=== PATIENT | female | born 2000 | race Caucasian/White ===

== ENCOUNTER → 2023-09-12 09:15 | Outpatient (BNVA) | payer OTHER, SELFPAY | PROVIDERS: Visit Provider Physician Assistant Surgical ==

== ENCOUNTER 2023-09-26 08:04 | Outpatient (AMB) | payer OTHER, SELFPAY ==
--- NOTE | 2023-09-26 11:40 | MHC.OFFVISWM ---
VS Expanded 09/26/23 11:56 Height 5 ft 6 in Weight 337 lb BMI 54.4 Body Fat % 50.5 Body Fat Mass 170.2 Fat Free Mass 166.6 Visceral Fat Rating 17 Body Water % 35.6 Body Water Mass 120 Basal Metabolic Rate/Score 2,486 Intake Visit Reasons: TV [employer] M[employer]'S H[employer] SWL BMI 54.4 Allergies adhesive tape Allergy (Mild, Verified 09/26/23 11:41) Rash lactose Adverse Reaction (Intermediate, Verified 09/26/23 11:41) Gastrointestinal Upset Medication List - Last Reconciled 09/26/23 by Shine Castro MD bupropion HCl 25 mg PO DAILY cholecalciferol (vitamin D3) 125 mcg PO DAILY hydroxyzine HCl 25 mg PO BID PRN lisdexamfetamine (Vyvanse) 50 mg PO .prn lorazepam 0.5 mg PO DAILY PRN naltrexone 50 mg PO DAILY HPI HPI TV [employer]ESPERSON M[employer] H[employer] SWL BMI 54.4: Details: Start time: 11.34am, End time: 12.14pm ?I spent 35 minutes speaking with the patient on the phone plus an additional 5 minutes reviewing and updating records for a total of 40 minutes HPI Comments Details: Previous weight loss efforts: Trylicity (40lbs), Bupropion/Naltrexone) Wakes up: 9am, Sleeps: 2am Breakfast: skip most often, protein bar Lunch: 2pm ([employer] protein chips) Dinner: 7.30pm (meat and vegetables) Snacks: protein brownie at night Exercise: Weigh training, Gym (treadmill), has home walking pad Fluids: Coffee: occasionally, Tea: occasionally, soda: none, juice: none, ETOH: 1/wk (3 Espresso Martinis) [facility] Medical History (Updated 09/26/23 @ 11:47 by Shine Castro MD) Steatosis, liver Insomnia PCOS (polycystic ovarian syndrome) Anxiety ADHD Morbid obesity Surgical History (Updated 09/12/23 @ 09:40 by Mitzy Kaye CMA) History of ankle surgery Hx of knee surgery Family History (Updated 09/12/23 @ 09:42 by Mitzy Kaye CMA) Mother Mental health disorder Addiction Father Mental health disorder Addiction Sister Obesity Mental health disorder Sister No problems noted. Social History (Updated 09/12/23 @ 09:43 by Mitzy Kaye CMA) Alcohol intake: current Alcohol intake frequency: holidays/special occasions only Patient Tobacco Use Status: Former Tobacco user Telehealth Telehealth Telehealth Platform: Telephone Location of provider rendering services: practice address Location of patient: address on file Patient Identification confirmed using: Name, : Yes Telehealth method: voice only Patient verbally consented to treatment: Yes Patient verbally consented to billing insurance company: Yes Patient informed of any privacy concerns related to visit: Yes Minutes spent on Phone/Video with Pt.: 40 Assessment & Plan Assessment & Plan (1) Morbid obesity: Code(s): E66.01 - Morbid (severe) obesity due to excess calories Category: Medical Plan: 1.? Plan for lap sleeve gastrectomy. If diaphragmatic or ventral hernias are present at time of surgery, these will be repaired laparoscopically as well. Risks and complications include possible conversion to an open procedure, anastomotic leak, bleeding requiring transfusion, small bowel obstruction, , DVT and pulmonary embolism, cardiac, or pulmonary complications, as senior care complications such as anastomotic ulcer, insufficient weight loss and vitamin deficiencies. I emphasized the importance of close follow-up, adherence to instructions and good communication. 2. You will receive a link of our software bogdan to generate an individualized nutritional and exercise plan specific for you. Please send me a screenshot of the plans you will generate Meal to include lean meat (beef, fish, pork, turkey, chicken), or estonian yogurt, or egg whites, or beans with a salad with olive oil and fruits (berries, pears, apples, kiwi). Avoid salt, breads, potatoes, rice, pasta, desserts. ?3. If you choose shakes, each shake would be drunk slowly, like coffee in a period of 2 hours. ?4. If you choose bars, cut each bar in 4 pieces and eat each piece in 30min ?to make each bar last 2 hours. ?5. I emphasized the importance of measuring accurately the food portion and measure it when serving the food in plate ?6. The meal portions include a specific number of forks of meat and salad. You always eat the meat portion but you can replace up to half of salad/vegetables portion with rice, potatoes or pasta, or a fruit ?if you like. The less you do it the better weight loss will be. ?7. One full-size fork is what it can be scooped on the fork without falling aside and not what can be bit with the fork. Use regular forks like those you find in a typical restaurant. ?8.? Please send me weight measurements as soon as possible and then once a week. Always include your diet and exercise plan. 9. The best choice would be to purchase a stationary bike, elliptical or treadmill at home that can track calories. Let me know if you do so I can give you an exercise plan. ?10.?It is important of avoiding and for at least 18 months postoperatively and has been discussed at the infosession. ?11. Goal is to lose at least 1.5-2lbs per week ?12. Goal to lose 10% of your weight before surgery, which is about 34lbs. Ultimate weight goal: 303lbs before surgery 13. Please follow the diet plan exactly without any change. If you don't like something about the plan or you feel hungry you need to communicate with me so I can help you revise the plan. You should not change the plan yourself. 14. To be scheduled for EGD due to history of GERD. The possibility of biopsies was discussed. Patient needs to avoid use of NSAIDs and aspirin for 1 week prior to EGD. Risks of perforation and bleeding was discussed with the patient. This will be an outpatient procedure with IV sedation. Orders: Orders Insulin Today E28.2 - Polycystic ovarian syndrome, E66.01 - Morbid (severe) obesity due to excess calories, K76.0 - Fatty (change of) liver, not elsewhere classified Hemoglobin A1c Today E28.2 - Polycystic ovarian syndrome, E66.01 - Morbid (severe) obesity due to excess calories, K76.0 - Fatty (change of) liver, not elsewhere classified IRON PROFILE Today E28.2 - Polycystic ovarian syndrome, E66.01 - Morbid (severe) obesity due to excess calories, K76.0 - Fatty (change of) liver, not elsewhere classified Comprehensive Met. Panel Today E28.2 - Polycystic ovarian syndrome, E66.01 - Morbid (severe) obesity due to excess calories, K76.0 - Fatty (change of) liver, not elsewhere classified C Reactive Protein Today E28.2 - Polycystic ovarian syndrome, E66.01 - Morbid (severe) obesity due to excess calories, K76.0 - Fatty (change of) liver, not elsewhere classified Vitamin B1 Today E28.2 - Polycystic ovarian syndrome, E66.01 - Morbid (severe) obesity due to excess calories, K76.0 - Fatty (change of) liver, not elsewhere classified TSH reflex Free T4 Today E28.2 - Polycystic ovarian syndrome, E66.01 - Morbid (severe) obesity due to excess calories, K76.0 - Fatty (change of) liver, not elsewhere classified Ferritin Today E28.2 - Polycystic ovarian syndrome, E66.01 - Morbid (severe) obesity due to excess calories, K76.0 - Fatty (change of) liver, not elsewhere classified Vitamin D 25-OH Total Today E28.2 - Polycystic ovarian syndrome, E66.01 - Morbid (severe) obesity due to excess calories, K76.0 - Fatty (change of) liver, not elsewhere classified US abdomen comp w elastography Today E28.2 - Polycystic ovarian syndrome, E66.01 - Morbid (severe) obesity due to excess calories, K76.0 - Fatty (change of) liver, not elsewhere classified ECG 12 lead EKG Today E28.2 - Polycystic ovarian syndrome, E66.01 - Morbid (severe) obesity due to excess calories, K76.0 - Fatty (change of) liver, not elsewhere classified H Pylori Breath Test Today E28.2 - Polycystic ovarian syndrome, E66.01 - Morbid (severe) obesity due to excess calories, K76.0 - Fatty (change of) liver, not elsewhere classified Complete Blood Count Auto Diff Today E28.2 - Polycystic ovarian syndrome, E66.01 - Morbid (severe) obesity due to excess calories, K76.0 - Fatty (change of) liver, not elsewhere classified Lipid Panel Today E28.2 - Polycystic ovarian syndrome, E66.01 - Morbid (severe) obesity due to excess calories, K76.0 - Fatty (change of) liver, not elsewhere classified Vitamin B12 and Folate Today E28.2 - Polycystic ovarian syndrome, E66.01 - Morbid (severe) obesity due to excess calories, K76.0 - Fatty (change of) liver, not elsewhere classified Zinc Today E28.2 - Polycystic ovarian syndrome, E66.01 - Morbid (severe) obesity due to excess calories, K76.0 - Fatty (change of) liver, not elsewhere classified Vitamin A Today E28.2 - Polycystic ovarian syndrome, E66.01 - Morbid (severe) obesity due to excess calories, K76.0 - Fatty (change of) liver, not elsewhere classified XR chest 2V Today E28.2 - Polycystic ovarian syndrome, E66.01 - Morbid (severe) obesity due to excess calories, K76.0 - Fatty (change of) liver, not elsewhere classified FL upper GI w air Today E28.2 - Polycystic ovarian syndrome, E66.01 - Morbid (severe) obesity due to excess calories, K76.0 - Fatty (change of) liver, not elsewhere classified Referrals Behavioral Health Referral E28.2 - Polycystic ovarian syndrome, E66.01 - Morbid (severe) obesity due to excess calories, K76.0 - Fatty (change of) liver, not elsewhere classified Nutrition/Dietitian Referral E28.2 - Polycystic ovarian syndrome, E66.01 - Morbid (severe) obesity due to excess calories, K76.0 - Fatty (change of) liver, not elsewhere classified
[2023-09-26 11:56] VITALS: BMI 54.4
== END 2023-09-26 12:15 | disposition home or self-care (01) ==
LOC: HO.HBS 08:04
PROVIDERS: Visit Provider Surgery
DX: E66.01 Morbid (severe) obesity due to excess calories (principal)
CPT/HCPCS: 99203

== ENCOUNTER → 2023-09-26 08:04 | Outpatient (BNVA) | payer OTHER, SELFPAY | PROVIDERS: Visit Provider Surgery ==

== ENCOUNTER 2023-09-30 14:42 | Outpatient (REF) | payer OTHER, SELFPAY ==
--- NOTE | ~2023-09-30 | XR_ITS ---
EXAMINATION: XR CHEST CLINICAL INFORMATION: Obesity preoperative COMPARISON: None available. TECHNIQUE: 2 views of the chest were obtained. FINDINGS: No significant abnormality is noted involving the heart, lungs, mediastinum, bony thorax or soft tissues. XR/XR chest 2V IMPRESSION: Normal chest x-ray.
--- NOTE | 2023-09-30 14:52 | ECG_ITS ---
Test Reason : preop Blood Pressure : / mmHG Vent. Rate : 070 BPM Atrial Rate : 070 BPM P-R Int : 152 ms QRS Dur : 084 ms QT Int : 394 ms P-R-T Axes : 053 031 030 degrees QTc Int : 425 ms Normal sinus rhythm Normal ECG No previous ECGs available Referred By: Shine Castro Electronically Signed By:LUCILA MARTINEZ MD
== END 2023-09-30 14:43 | disposition home or self-care (01) ==
LOC: HO.XRAY 14:42
PROVIDERS: Visit Provider Surgery
DX: E66.01 Morbid (severe) obesity due to excess calories (principal); K76.0 Fatty (change of) liver, not elsewhere classified; E28.2 Polycystic ovarian syndrome
CPT/HCPCS: 71046; 93005

== ENCOUNTER → 2023-09-30 14:52 | Outpatient (BNV) | payer OTHER, SELFPAY | PROVIDERS: Visit Provider Internal Medicine Cardiovascular Disease | DX: E66.01 Morbid (severe) obesity due to excess calories (principal); Z01.810 Encounter for preprocedural cardiovascular examination | CPT/HCPCS: 93010 ==

== ENCOUNTER 2023-10-01 10:43 | Outpatient (REF) | payer OTHER, SELFPAY ==
[2023-10-01 10:57] LABS: MANUAL DIFF FLAG NO
[2023-10-01 12:20] LABS: Basophils Absolute Auto 0.1 X10*3/uL (0.0-0.2); Basophils Percent Auto 0.6 % (0-2); Eosinophils Absolute Auto 0.2 X10*3/uL (0.0-0.4); Eosinophils Percent Auto 1.9 % (0-4); Hematocrit 40.6 % (37.0-47.0); Hemoglobin 13.1 g/dl (12.0-16.0); Imm Gran Abs Auto 0.04 X10*3/uL (0.00-0.03); Imm Gran Pct Auto 0.5 % (0.0-0.4); Lymphocytes Absolute Auto 2.9 X10*3/uL (1.2-4.9); Lymphocytes Percent Auto 36.4 % (20-40); Mean Corpuscular HGB Conc 32.3 g/dl (31.0-35.0); Mean Corpuscular Hemoglobin 29.5 pg (27.0-33.0); Mean Corpuscular Volume 91.4 fL (80.0-98.0); Mean Platelet Volume 10.5 fL (9.4-12.3); Monocytes Absolute Auto 0.6 X10*3/uL (0.1-1.2); Monocytes Percent Auto 7.4 % (2-11); Neutrophils Absolute Auto 4.2 x10*3/uL (2.0-8.3); Neutrophils Percent Auto 53.2 % (45-73); Platelet Count 322 X10*3/uL (160-400); Red Blood Count 4.44 X10*6/uL (4.20-5.50); Red Cell Distribution Width 13.7 % (11.0-16.0); White Blood Count 7.8 X10*3/uL (4.8-10.8)
[2023-10-01 12:33] LABS: Estimated Average Glucose 100 mg/dL; Hemoglobin A1c % 5.1 % (<6.0)
[2023-10-01 12:55] LABS: Alanine Aminotransferase 22 U/L (0-31); Albumin Level 4.2 g/dL (3.5-5.0); Alkaline Phosphatase 48 U/L (39-117); Anion Gap 11 (12-20); Aspartate Amino Transferase 16 U/L (5-31); Bilirubin Total 0.3 mg/dL (0.0-1.0); Blood Urea Nitrogen 16 mg/dL (9-16); C Reactive Protein 0.85 mg/dL (< or = 0.50); Calcium 9.5 mg/dL (8.4-10.2); Carbon Dioxide 26 mmol/L (22-29); Chloride 104 mmol/L (96-108); Cholesterol 180 mg/dL (<200); Estimated Glomerular Filt Rate > 60; Glucose Random 87 mg/dL (60-115); HDL Cholesterol 27 mg/dL (>40); Iron 55 mcg/dL (30-160); LDL Cholesterol Calculated 130 mg/dL (<100); Percent Iron Saturation 20 % (15-50); Potassium 4.4 mmol/L (3.3-5.1); Sodium 137 mmol/L (135-145); Total Iron Binding Capacity 271 mcg/dL (228-428); Total Protein 7.3 g/dL (6.5-8.0); Triglycerides 119 mg/dL (<150); Unsaturated Iron Binding 216 ug/dL
[2023-10-01 13:17] LABS: Ferritin 153 ng/mL (10-122); TSH reflex Free T4 4.08 uIU/mL (0.32-4.0); Vitamin D 25-OH Total 26.7 ng/mL (>30)
[2023-10-01 13:38] LABS: Insulin 19 uU/mL (2-29)
[2023-10-01 13:57] LABS: Vitamin B12 550 pg/mL (200-900)
[2023-10-01 15:08] LABS: Free T4 (Free Thyroxine) 1.02 ng/dL (0.71-1.85)
[2023-10-06 05:38] LABS: Vitamin B1 <6 nmol/L (8-30)
[2023-10-06 12:32] LABS: Zinc 70 mcg/dL (60-130)
[2023-10-07 20:44] LABS: Vitamin A 36 mcg/dL (38-98)
== END 2023-10-01 10:44 | disposition home or self-care (01) ==
LOC: HO.LAB 10:43
PROVIDERS: Visit Provider Surgery
DX: E66.01 Morbid (severe) obesity due to excess calories (principal); K76.0 Fatty (change of) liver, not elsewhere classified; E28.2 Polycystic ovarian syndrome; Z13.1 Encounter for screening for diabetes mellitus
CPT/HCPCS: 36415; 80053; 80061; 82306; 82607; 82728; 82746; 83036; 83525; 83540; 84425; 84439; 84443; 84590; 84630; 85025; 86140

== ENCOUNTER 2023-10-15 11:00 | Outpatient (AMB) | payer OTHER, SELFPAY ==
--- NOTE | 2023-10-15 11:10 | MHC.WMTHER ---
Intake Intake Visit Reasons: TV BH Intake Allergies adhesive tape Allergy (Mild, Verified 09/26/23 11:41) Rash lactose Adverse Reaction (Intermediate, Verified 09/26/23 11:41) Gastrointestinal Upset PFSH Medical History (Updated 09/26/23 @ 11:47 by Shine Castro MD) Steatosis, liver Insomnia PCOS (polycystic ovarian syndrome) Anxiety ADHD Morbid obesity Surgical History (Updated 09/12/23 @ 09:40 by Mitzy Kaye CMA) History of ankle surgery Hx of knee surgery Family History (Updated 09/12/23 @ 09:42 by Mitzy Kaye CMA) Mother Mental health disorder Addiction Father Mental health disorder Addiction Sister Obesity Mental health disorder Sister No problems noted. Social History (Updated 09/12/23 @ 09:43 by Mitzy Kaye CMA) Alcohol intake: current Alcohol intake frequency: holidays/special occasions only Patient Tobacco Use Status: Former Tobacco user Behavioral Health Assessment Weight Management Therapy Therapy Notes Details PT is a 23 year old female who presents for BH assessment as part of surgical weight-loss program. Presenting Concerns Referral Source P Provider. Pt seen by Dr Arango on 10/01/2023. Reason for referral Completion of behavioral health assessment as part of process for weight-loss surgery. Precipitating Event PT reports she is going trough transitions in life and want to be successful with her weight loss to eventually start a family and be more active. She also has PCOS and Liver issues that can improve with weight-loss. Living Situation Current Living Situation Rent At risk of losing current housing? No Satisfied with current living situation? Yes Comments Lives with her partner in [place] and their cat. Food/Weight/Diet Expectations of change Initial goal is to lose 10% of her weight before surgery, which is about 34lbs. Ultimate weight goal: 303lbs before surgery She wants to be around 150Lbs and feel good, healthy and confident with her body. Social History Family history and relationship Mom is a single-mom, who adopted her and another girl. Mom was a teacher. Adopted at 4 years old but was with her mother since 15 month old as foster. Sister is 21 years old. PT reports they all are very close and supportive with each other. . She has grandparents and uncles/aunts who are close to her. She knew about her bio-family later in life, She doesn't have a deeper relationship with them due to drama on that side. 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 Developmental history and status Diagnosed with ADHD around 9 years old. Denies any delay or developmental issue. Currently takes meds for ADHD and is doing well. Social support Mom, boyfriend, sister. 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 Cultural/Ethnic information Grew up in an Latvian household. Biologically she's White and . Paraguayan speaking. Legal Involvement and History Current or historical involvement with the legal system? None reported. Education Highest grade completed Bachelors. 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 Yes Interested in further educational program? 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 Employment Employment Status School Wants help to find employment? No Meaningful activities Volunteering, music, theater, time with friends, going out. Financial Situation Describe current financial situation Comfortable Financial assistance? Contributions from your family/friends (Mom and boyfriend helps as she is a full-time student. ) Service Service? No Mental Health and Addiction Treatment Current/Past substance abuse? No Current/Past addictive behavior concerns? No Psychiatric history PT attends counseling with Dr. Alethea Melendez, PhD in [place], [place] via telehealth. Sees therapist bi-weekly or monthly. Been in counseling since 7 grade as she was adopted and to get support with adoption trauma and her sister having reactive attachment disorder. The client has been diagnosed with PTSD, depression, anxiety (situational), ADHD and insomnia. Current meds: Vyvanse 50mg 1 at day, Lorazepam 0.5mg 1 as needed for anxiety, hydroxyzine 25mg 1 at bedtime for insomnia as needed, Assessment & Plan Assessment & Plan (1) Trauma and stressor-related disorder: Code(s): F43.9 - Reaction to severe stress, unspecified Plan: Not cleared today as Pt will be seen again on 11/03/2023 at 1pm to copmplete the assessment. PHQ-9 will be administered again and BES reviewed. Telehealth Telehealth Telehealth Platform: [facility] Location of provider rendering services: practice address Location of patient: other ([place]) Patient Identification confirmed using: Name, : Yes Telehealth method: voice only (Video was unstable.) Patient verbally consented to treatment: Yes Patient verbally consented to billing insurance company: Yes Patient informed of any privacy concerns related to visit: No Minutes spent on Phone/Video with Pt.: 60 Coding Level of Care Code New Pt Tele Psy Diag Bernadine ([id number]) Patient Type New Diagnoses Trauma and stressor-related disorder F43.9 Time Spent (min) 60
== END 2023-10-15 11:58 | disposition home or self-care (01) ==
LOC: HO.HBST 11:37
PROVIDERS: Visit Provider Counselor Mental Health
DX: F43.9 Reaction to severe stress, unspecified (principal)
CPT/HCPCS: 90791

== ENCOUNTER → 2023-10-15 11:00 | Outpatient (BNVA) | payer OTHER, SELFPAY | PROVIDERS: Visit Provider Counselor Mental Health ==

== ENCOUNTER 2023-10-24 08:16 | Outpatient (REF) | payer OTHER, SELFPAY ==
--- NOTE | ~2023-10-24 | US_ITS ---
EXAMINATION: US COMPLETE ABDOMEN WITH LIVER ELASTOGRAPHY CLINICAL INFORMATION: Morbid obesity. COMPARISON: None available. TECHNIQUE: Real-time imaging of the abdominal viscera. Noninvasive ultrasound liver fibrosis assessment is performed using Kierra ElastPQ point quantification shear wave elastography (pSWE) with a C5-2 MHz transducer. Multiple elastography samples are obtained. FINDINGS: PANCREAS: . The visualized pancreatic head and body are normal in appearance. The remainder of the pancreas is obscured from visualization by the overlying bowel gas. ABDOMINAL AORTA: The proximal, middle, and distal aortic segments are normal in caliber. INFERIOR VENA CAVA: Visualized portions are normal. LIVER: Liver is enlarged at 18.5 cm with increased echogenicity consistent with hepatic steatosis. No focal lesion or intrahepatic biliary duct dilatation. The right lobe measures 18.5 cm in length. The left lobe measures 12.2 cm in length. Portal flow is towards the liver (hepatopetal). Shear wave liver elastography median stiffness is 1.6 m/s (reference: normal median stiffness is 1.3 m/s or less). IQR/median stiffness to assess sampling precision is 0.11 (reference: good quality data set is IQR/median stiffness of 0.15 or less). GALLBLADDER: Gallstones are present without evidence of cholecystitis. COMMON BILE DUCT: Normal in caliber measuring 0.2 cm in diameter. RIGHT KIDNEY: Normal. No hydronephrosis. No renal calculi or focal parenchymal lesions. The kidney measures 11.1 cm in maximum dimension. LEFT KIDNEY: Normal. No hydronephrosis. No renal calculi or focal parenchymal lesions. The kidney measures 11.7 cm in maximum dimension. SPLEEN: Spleen is enlarged measuring 13.8 cm in maximum dimension. FREE FLUID: None. US/US abdomen comp w elastography IMPRESSION: 1. Enlarged fatty liver with mild splenomegaly and cholelithiasis. 2. Liver elastography: In the absence of other known clinical signs, measurements rule out compensated advanced chronic liver disease. If there are known clinical signs, further testing may be needed for confirmation. REFERENCE: Society of Radiologists in Ultrasound Liver Stiffness Thresholds (2019): LIVER STIFFNESS THRESHOLDS: *Liver Stiffness equal or less than 1.3 m/s: High probability of being normal. *Liver Stiffness less than 1.7 m/s: In the absence of other known clinical signs, rules out compensated advanced chronic liver disease. *Liver Stiffness 1.7-2.1 m/s: Suggestive of compensated advanced chronic liver disease but need further test for confirmation. *Liver Stiffness over 2.1 m/s: Rules in compensated advanced chronic liver disease. *Liver Stiffness over 2.4 m/s: Suggestive of clinically significant portal hypertension. QUALITY OF DATA SET: *IQR/Median value equal or less than 0.15 implies a quality data set. *IQR/Median value over 0.15 implies a poor quality data set. SIGNIFICANT CHANGE FROM PRIOR EXAM: Significant change if liver stiffness measurement is 10% or greater from prior exam. OTHER CONSIDERATIONS: The stage of liver fibrosis may be overestimated in the setting of acute hepatitis, liver inflammation, elevated liver function tests, hepatic vascular congestion, obstructive cholestasis, non-fasting state, and infiltrative diseases such as amyloidosis and lymphoma. In some patients with NAFLD, the liver stiffness thresholds for compensated advanced chronic liver disease may be lower. In causes other than viral hepatitis and NAFLD, liver stiffness thresholds are not well established. Electronically signed by: Aureliano Rendon MD 11/12/2023 07:32 AM EDT
== END 2023-10-24 08:17 | disposition home or self-care (01) ==
LOC: HO.US 08:16
PROVIDERS: Visit Provider Surgery
DX: K76.0 Fatty (change of) liver, not elsewhere classified (principal); E28.2 Polycystic ovarian syndrome; E66.01 Morbid (severe) obesity due to excess calories
CPT/HCPCS: 76700; 76981

== ENCOUNTER 2023-11-03 13:17 | Outpatient (AMB) | payer OTHER, SELFPAY ==
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
== END 2023-11-03 14:08 | disposition home or self-care (01) ==
LOC: HO.HBST 13:17
PROVIDERS: Visit Provider Counselor Mental Health
DX: F43.9 Reaction to severe stress, unspecified (principal)
CPT/HCPCS: 90791

== ENCOUNTER → 2023-11-03 13:17 | Outpatient (BNVA) | payer OTHER, SELFPAY | PROVIDERS: Visit Provider Counselor Mental Health ==

== ENCOUNTER 2023-12-05 08:50 | Outpatient (REF) | payer MEDICAID, SELFPAY ==
--- NOTE | ~2023-12-05 | FL_ITS ---
EXAMINATION: XR FLUOROSCOPY UPPER GI WITH AIR CLINICAL INFORMATION: Preoperative evaluation prior to bariatric surgery COMPARISON: None TECHNIQUE: Fluoroscopic air contrast upper GI examination was performed utilizing standard techniques with thin and thick barium and effervescent granules. Numerous spot images were obtained. FINDINGS: Dual and single contrast images of the esophagus demonstrate normal caliber, contour, and mucosal pattern. No evidence of stricture, mass, or ulcerations identified. Esophageal peristalsis is mildly disorganized. No evidence of hiatus hernia identified. Mild to moderate gastroesophageal reflux is seen up to the midesophagus. Dual contrast and single contrast images of the stomach demonstrated a normal contour and mucosal pattern without evidence of mass, ulceration, or other abnormality. Contrast freely passed into the gastric antrum and duodenal bulb without delay. Single and air-contrast images of the duodenal bulb demonstrate no abnormality. The duodenal sweep has a normal appearance, course, and mucosal fold appearance. The imaged proximal jejunum has a normal fold pattern and caliber. FLUOROSCOPY TIME: 3 minutes 23 seconds Number of Spot Images: 9 Number of Cine: 13 DOSE AREA PRODUCT: [id number] uGy-m2 (microgray-meter squared) FL/FL upper GI w air IMPRESSION: 1. Mildly disorganized esophageal peristalsis. 2. Mild to moderate gastroesophageal reflux. This procedure was performed by Camden Acevedo PA-C, and supervised by Dr. Salinas Electronically signed by: Walter Escalera MD 12/11/2023 03:19 PM EDT
== END 2023-12-05 08:51 | disposition home or self-care (01) ==
LOC: HO.XRAY 08:50
PROVIDERS: Visit Provider Surgery
DX: E66.01 Morbid (severe) obesity due to excess calories (principal); K76.0 Fatty (change of) liver, not elsewhere classified; E28.2 Polycystic ovarian syndrome
CPT/HCPCS: 74246

== ENCOUNTER → 2023-12-05 08:52 | Outpatient (BNV) | payer MEDICAID, SELFPAY | PROVIDERS: Visit Provider Student in an Organized Health Care Education/Training Program | DX: Z01.818 Encounter for other preprocedural examination (principal); E66.01 Morbid (severe) obesity due to excess calories | CPT/HCPCS: 74246 ==

== ENCOUNTER 2023-12-11 06:09 | Day surgery (SDC) | payer MEDICAID, SELFPAY ==
[2023-12-01 08:29] VITALS: BMI 54.4
[2023-12-11 06:41] VITALS: BP 134/91; PULSE 89; RESP 16; TEMP 36.2; O2SAT 98; BMI 48.3
[2023-12-11 06:44] LABS: UPreg QC Valid YES; Urine Pregnancy NEGATIVE (NEGATIVE)
[2023-12-11] MEDS: Lactated Ringers 1,000 ML 80 ML IVCONT (06:55)
--- NOTE | 2023-12-11 07:35 | P.CONAN_ITS ---
Documented by User: Karen Guerra NP 12/01/23 15:11 HPI - Anesthesia Eval Consult details Narrative: 23yo F for Upper Endoscopy PMFSH Active Problems Active Problems: All Active Problems Hypothyroidism (Acute) Vitamin B1 deficiency (Acute) Vitamin A deficiency (Acute) Vitamin D deficiency (Acute) Steatosis, liver (Acute) Insomnia (Acute) PCOS (polycystic ovarian syndrome) (Acute) Anxiety (Acute) ADHD (Acute) Morbid obesity (Acute) Past Medical History Medical History (Updated 11/07/23 @ 21:16 by Shine Castro MD) Steatosis, liver Insomnia PCOS (polycystic ovarian syndrome) Anxiety ADHD Morbid obesity Family History Family History (Updated 09/12/23 @ 09:42 by Mitzy Kaye CMA) Mother Mental health disorder Addiction Father Mental health disorder Addiction Sister Obesity Mental health disorder Sister No problems noted. Surgical History Surgical History History of ankle surgery Hx of knee surgery Social History Social History (Updated 09/12/23 @ 09:43 by Mitzy Kaye CMA) Are you a primary care support representative to a significant other at home: No Do you presently have visiting nurse or other home services: No Alcohol intake: current Alcohol intake frequency: holidays/special occasions only Patient Tobacco Use Status: Former Tobacco user Years Smoked: 4 Smoked in Last 30 Days: No Use of substances other than those prescribed or required for medical reasons: No Have you been hit, kicked, punched, or otherwise hurt by someone within the past year? If so, by whom?: No Are you DNR?: No Advance Directives: No Advance Directives Information Provided: Yes Recently lost weight without trying: No How much weight loss: 24-33 pounds Eating poorly because of decreased appetite: No Nutrition screen score: 3 Nutrition Risks: No Nutritional Risk Patient : No : No Poor oral hygiene: No Meds Allergies Allergy/AdvReac Type Severity Reaction Status Date / Time adhesive tape Allergy Mild Rash Verified 12/11/23 06:39 lactose AdvReac Intermediate Gastrointestinal Verified 12/11/23 06:39 Upset Home Medications ?Medication ?Instructions ?Recorded ?Confirmed ?Last Taken ?Type hydroxyzine HCl 25 mg tablet 25 mg PO BID PRN Sleep 09/12/23 12/11/23 Unknown History lisdexamfetamine 50 mg capsule 50 mg PO .prn 09/12/23 12/11/23 Unknown History (Vyvanse) lorazepam 0.5 mg tablet 0.5 mg PO DAILY PRN Anxiety 09/22/23 12/11/23 Unknown History Exam Height,Weight and Vital Signs: Height 5 ft 6 in Weight 152.861 kg Assessment and Plan Assessment Anesthesia Assessment: Chart Reviewed Documented by User: Olga Key, 12/11/23 07:39 [facility] Past Medical History Medical History (Updated 11/07/23 @ 21:16 by Shine Castro MD) Steatosis, liver Insomnia PCOS (polycystic ovarian syndrome) Anxiety ADHD Morbid obesity Family History Family History (Updated 09/12/23 @ 09:42 by Mitzy Kaye CMA) Mother Mental health disorder Addiction Father Mental health disorder Addiction Sister Obesity Mental health disorder Sister No problems noted. Family history of problems with anesthesia: No Surgical History Surgical History History of ankle surgery Hx of knee surgery History of Problems with Anesthesia: Yes (PONV) Social History Social History (Updated 09/12/23 @ 09:43 by Mitzy Kaye CMA) Are you a primary care support representative to a significant other at home: No Do you presently have visiting nurse or other home services: No Alcohol intake: current Alcohol intake frequency: holidays/special occasions only Patient Tobacco Use Status: Former Tobacco user Years Smoked: 4 Smoked in Last 30 Days: No Use of substances other than those prescribed or required for medical reasons: No Have you been hit, kicked, punched, or otherwise hurt by someone within the past year? If so, by whom?: No Are you DNR?: No Advance Directives: No Advance Directives Information Provided: Yes Recently lost weight without trying: No How much weight loss: 24-33 pounds Eating poorly because of decreased appetite: No Nutrition screen score: 3 Nutrition Risks: No Nutritional Risk Patient : No : No Poor oral hygiene: No Meds Allergies Allergy/AdvReac Type Severity Reaction Status Date / Time adhesive tape Allergy Mild Rash Verified 12/11/23 06:39 lactose AdvReac Intermediate Gastrointestinal Verified 12/11/23 06:39 Upset Home Medications ?Medication ?Instructions ?Recorded ?Confirmed ?Last Taken ?Type hydroxyzine HCl 25 mg tablet 25 mg PO BID PRN Sleep 09/12/23 12/11/23 Unknown History lisdexamfetamine 50 mg capsule 50 mg PO .prn 09/12/23 12/11/23 Unknown History (Lucas) lorazepam 0.5 mg tablet 0.5 mg PO DAILY PRN Anxiety 09/22/23 12/11/23 Unknown History Exam Exam Date and Time: 12/11/23 0735 Height,Weight and Vital Signs: Height 5 ft 6 in Weight 152.861 kg Vital Signs Temperature 97.1 F 12/11/23 06:41 Pulse Rate 89 12/11/23 06:41 Respiratory Rate 16 12/11/23 06:41 Blood Pressure 134/91 H 12/11/23 06:41 Pulse Oximetry 98 12/11/23 06:41 Oxygen Delivery Method Room Air 12/11/23 06:41 Temperature 97.1 F 12/11/23 06:41 Pulse Rate 89 12/11/23 06:41 Respiratory Rate 16 12/11/23 06:41 Blood Pressure 134/91 H 12/11/23 06:41 Pulse Oximetry 98 12/11/23 06:41 Oxygen Delivery Method Room Air 12/11/23 06:41 Airway Mallampati Class: II TM Dist: >3cm Neck ROM: Full Loose/Missing/Broken Teeth: No (patient denies any loose or broken teeth) Heart: S1S2 Lungs: CTAB Assessment and Plan Assessment Anesthesia Assessment: Anesthesia Plan Discussed and Chart Reviewed Final Anesthetic Review Family History of Problems with Anesthesia: No History of Problems with Anesthesia: Yes (PONV) NPO: Yes ASA Class: III Final Preanesthetic Review: No Changes in Pt Med Stat, Meds/Allgs Chart Reviewed, Consent Obtained/Reviewed and Anes Risks/Benef Reviewed Patient Risk: Intermediate Procedure Risk: Low Anesthetic Plan Anesthetic Plan: MAC: and Agree w/ Assess. and Plan Disposition: Standard PACU
--- NOTE | 2023-12-11 07:38 | MHC.SHP ---
Pre-Procedural Eval Section A - 24 Hr Update-Section A only Date of Service: 12/11/23 The patient is an INPATIENT: No The patient has been examined within 24 hours of the surgical procedure. The History & Physical has been completed within 30 days and I have reviewed it.: Yes Section B - Complete if H&P > 30 days Chief Complaint: Morbid (severe) obesity due to excess calories Details of Present Illness: GERD Relevant Family History (Specify if Yes): No Relevant Social History: None Present Medications: None Medical History: No relevant PMH History of Previous Operations: No relevant previous surgery Allergies: Allergies Allergy/AdvReac Type Severity Reaction Status Date / Time adhesive tape Allergy Mild Rash Verified 12/11/23 06:39 lactose AdvReac Intermediate Gastrointestinal Verified 12/11/23 06:39 Upset Review of Systems Sugical H&P ROS: Negative: Constitution, Cardiovascular, Respiratory, Neurological, Psychiatric, Hem-Onc, Allergic/Immunologic, Gastrointestinal, Genitourinary, Musculoskeletal, Integumentary, Endocrine and Eyes/Ears/Nose/Throat Exam Surgical H&P Exam: Normal: HEENT, Normal: Heart, Normal: Lungs, Normal: Extremities, Normal: Abdomen, Normal: Skin and Normal: Neurological Plan Diagnosis/Plan: Unchanged (EGD to assess etiology of GERD. Risks of bleeding and perforation were discussed with the patient and she is in agreement with the plan.) I have reviewed the history and physical and performed a pertinent physical examination on my patient. No changes have occurred unless specified. Time Spent With Patient Time: Total time managing care of this patient today ____ minutes.
--- NOTE | 2023-12-11 08:02 | P.BOP_ITS ---
Brief Operative Note Date of Service: 12/11/23 Pre-op diagnosis: GERD Post-op diagnosis: same Procedure: PROCEDURE DATE: 12/11/2023 PREOPERATIVE DIAGNOSIS: GERD POSTOPERATIVE DIAGNOSIS: ?Same as above. 1) Normal endoscopy PROCEDURE: [id number] with biopsies Surgeon: Az Castro M.D.. Ph.D. Housekeeper/Laundry Assistant: None ? Anesthesia: IV sedation Estimated blood loss: ?Minimal FINDINGS AND PROCEDURE: ? OPERATIVE INDICATIONS: ?The patient is a 23 year old female known to me who is interested in bariatric surgery. The patient has GERD. Based on this information I recommended an upper endoscopy to evaluate the patient's symptoms. Risks and complications of the surgery were discussed with the patient in advance particularly the possibility of perforation or bleeding that may require surgica l intervention. The patient understood the risks and was in agreement with the plan. ? PROCEDURE: After informed consent was obtained by the patient, the patient was ?transferred to the Operating Room and was placed in the supine position.? After successful induction of IV sedation, a mouth block was inserted and the patient was placed in the left lateral decubitus position. An upper endoscopy was performed next, the oropharynx and esophagus appeared within the normal limits. There was a no hiatal hernia. The z-line was smooth. Two biopsies were obtained from the distal esophagus 2-3 cm proximal to the GE junction and two additional biopsies from the GE junction. The stomach was entered and it appeared to be of normal size. There was no gastritis. There was no stricture or ulcer. A biopsy was obtained from the gastric fundus and the antrum. No significant bleeding was noted from any of the biopsy sites. Retroflxion of the scope confirmed the presence of a normal GE junction. The scope was then advanced into the duodenum which appeared to be normal as well. At that point the duodenum ?and the stomach were decompressed and the scope was withdrawn from the patient's mouth. The patient extubated and was transferred in stable condition to the Recovery Room for further care. I was present and performed all steps of the procedure. There were no residents to assist with this case. Sudarshan Castro M.D., Ph.D. Surgeon: Shine Castro MD Anesthesia: MAC Was an Housekeeper/Laundry Assistant used for this Procedure?: No Estimated blood loss (mL): 0 IV fluids (mL): 400 Urine output (mL): 0 (No Fields to record output) Pathology: other (1) antrum x1, 2) fundus x1, 3) GE junction x2, 4) distal esophagus x2) Condition: stable Disposition: PACU
[2023-12-11 08:45] VITALS: BP 126/70; PULSE 74; RESP 16; TEMP 36.2; O2SAT 94
[2023-12-11 09:06] VITALS: BP 104/78; PULSE 75; RESP 16; TEMP 36.1; O2SAT 100
== END 2023-12-11 09:27 | disposition home or self-care (01) ==
PROVIDERS: Nurse Practitioner; Visit Provider Surgery
PROC: 0DJ08ZZ Inspection of Upper Intestinal Tract, Via Natural or Artificial Opening Endoscopic (ICD-10-PCS; CPT 43235; principal; 2023-12-11 08:10)
DX: K21.9 Gastro-esophageal reflux disease without esophagitis (principal); E66.01 Morbid (severe) obesity due to excess calories; Z68.43 Body mass index [BMI] 50.0-59.9, adult; K76.0 Fatty (change of) liver, not elsewhere classified; F90.9 Attention-deficit hyperactivity disorder, unspecified type; F41.9 Anxiety disorder, unspecified; E28.2 Polycystic ovarian syndrome; E73.9 Lactose intolerance, unspecified; L23.1 Allergic contact dermatitis due to adhesives; Z79.899 Other long term (current) drug therapy; Z98.890 Other specified postprocedural states; Z87.891 Personal history of nicotine dependence
CPT/HCPCS: 43239; 81025; 88305; 88313; 88342; J1100; J1596; J2250; J2704

== ENCOUNTER → 2023-12-11 06:09 | Outpatient (BNV) | payer MEDICAID, SELFPAY | PROVIDERS: Visit Provider Surgery | DX: K21.9 Gastro-esophageal reflux disease without esophagitis (principal) | CPT/HCPCS: 43239 ==

== ENCOUNTER → 2023-12-19 11:20 | Outpatient (BNVA) | payer MEDICAID, SELFPAY | PROVIDERS: Visit Provider Counselor Mental Health ==

== ENCOUNTER → 2023-12-19 11:20 | Outpatient (AMB) | payer OTHER, SELFPAY ==
--- NOTE | 2023-12-19 11:00 | MHC.WMTHER ---
Intake Intake Visit Reasons: Video F/U Allergies adhesive tape Allergy (Mild, Verified 12/11/23 06:39) Rash lactose Adverse Reaction (Intermediate, Verified 12/11/23 06:39) Gastrointestinal Upset [facility] Medical History (Updated 11/07/23 @ 21:16 by Sihne Castro MD) Steatosis, liver Insomnia PCOS (polycystic ovarian syndrome) Anxiety ADHD Morbid obesity Surgical History History of ankle surgery Hx of knee surgery Family History (Updated 09/12/23 @ 09:42 by Mitzy Kaye CMA) Mother Mental health disorder Addiction Father Mental health disorder Addiction Sister Obesity Mental health disorder Sister No problems noted. Social History (Updated 09/12/23 @ 09:43 by Mitzy Kaye CMA) Are you a primary healthcare associate to a significant other at home: No Do you presently have visiting nurse or other home services: No Alcohol intake: current Alcohol intake frequency: holidays/special occasions only Patient Tobacco Use Status: Former Tobacco user Years Smoked: 4 Behavioral Health Assessment Weight Management Therapy Therapy Notes Details Subjective: Pt reports he is doing very well, dealing with some intrusive food thoughts but able to distract and engage in different things. Her Current meal plan is: 2 shakes, 2 bars and 1 meal. Objective: PT presents for a follow up visit via Telehealth as part of -support [facility]-offers clients. She is scheduled to have surgery 02/05/2024 Interventions: Active reflective listening Mindfulness and thought-stopping techniques Psychoeducation around boundaries and assertive communication for possible challenges with other as she continues losing weight. Feedback provided. Assessment: MSE: witin normal limits Risk: None reported/identified. Plan: follow up post-op for support. Presenting Concerns Referral Source [facility] Provider. Pt seen by Dr Arango on 10/01/2023. Reason for referral Completion of behavioral health assessment as part of process for weight-loss surgery. Precipitating Event PT reports she is going trough transitions in life and want to be successful with her weight loss to eventually start a family and be more active. She also has PCOS and Liver issues that can improve with weight-loss. 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 PT advised to participate in facebook support group. Next bogdan: 02/16/24 at 10 am, Telehealth. Telehealth Telehealth Telehealth Platform: [employer] Location of provider rendering services: practice address Location of patient: address on file Patient Identification confirmed using: Name, : Yes Telehealth method: video Patient verbally consented to treatment: Yes Patient verbally consented to billing insurance company: Yes Patient informed of any privacy concerns related to visit: Yes Minutes spent on Phone/Video with Pt.: 45 Coding Level of Care Code Established Pt Tele Psytx 45 mins ([id number]) Patient Type Established Diagnoses Trauma and stressor-related disorder F43.9 Time Spent (min) 45 Comment Start time: 11:15am, end time: 12:00pm.
== END ==
PROVIDERS: Visit Provider Counselor Mental Health
DX: F43.9 Reaction to severe stress, unspecified (principal)
CPT/HCPCS: 90834

== ENCOUNTER 2024-01-19 08:02 | Outpatient (AMB) | payer MEDICAID, SELFPAY ==
--- NOTE | 2024-01-19 08:46 | A.OFFVIS_ITS ---
VS Expanded 01/19/24 09:01 Height 5 ft 6 in Weight 283 lb 2 oz BMI 45.7 Body Fat % 59.2 Fat Free Mass 115.6 Visceral Fat Rating 26 Body Water % 28 Basal Metabolic Rate/Score 1,482 Intake Visit Reasons: TV Pre Op LSG 02/05/24 SEE NOTE Allergies adhesive tape Allergy (Mild, Verified 01/19/24 08:46) Rash lactose Adverse Reaction (Intermediate, Verified 01/19/24 08:46) Gastrointestinal Upset Medication List - Last Reconciled 01/19/24 by Shine Castro MD cholecalciferol (vitamin D3) 125 mcg PO DAILY hydroxyzine HCl 25 mg PO BID PRN levothyroxine 25 mcg PO DAILY lisdexamfetamine (Vyvanse) 50 mg PO .prn lorazepam 0.5 mg PO DAILY PRN ondansetron 4 mg PO Q12H pantoprazole 40 mg PO DAILY polyethylene glycol 3350 17 grams PO DAILY sucralfate 10 mL PO BID thiamine HCl (vitamin B1) 100 mg PO DAILY vitamin A palmitate 10,000 units PO DAILY HPI HPI TV Pre Op LSG 02/05/24 SEE NOTE: Details: Start time: 8.40am, End time: 9.10am ?I spent 25 minutes speaking with the patient on the phone plus an additional 5 minutes reviewing and updating records for a total of 30 minutes HPI Comments Details: Overall weight loss: 53.8lbs, or 16% TBWL is doing 2 powdered Premier (1 scoop in 8oz almond milk) 3 20gr-protein shakes, protein bars and one meal (10 forks of meat and 10 forks of salad or vegetables) Exercise: gym x5/wk for 500-550 calories doing Elliptical PFSH Medical History (Updated 11/07/23 @ 21:16 by Shine Castro MD) Steatosis, liver Insomnia PCOS (polycystic ovarian syndrome) Anxiety ADHD Morbid obesity Surgical History History of ankle surgery Hx of knee surgery Family History (Updated 09/12/23 @ 09:42 by Mitzy Kaye CMA) Mother Mental health disorder Addiction Father Mental health disorder Addiction Sister Obesity Mental health disorder Sister No problems noted. Social History (Updated 09/12/23 @ 09:43 by Mitzy Colon, PROVIDER RELATIONS REP) Are you a primary customer care representative to a significant other at home: No Do you presently have visiting nurse or other home services: No Alcohol intake: current Alcohol intake frequency: holidays/special occasions only Patient Tobacco Use Status: Former Tobacco user Years Smoked: 4 Telehealth Telehealth Telehealth Platform: Telephone Location of provider rendering services: practice address Location of patient: address on file Patient Identification confirmed using: Name, : Yes Telehealth method: voice only Patient verbally consented to treatment: Yes Patient verbally consented to billing insurance company: Yes Patient informed of any privacy concerns related to visit: Yes Minutes spent on Phone/Video with Pt.: 30 Assessment & Plan Assessment & Plan (1) Morbid obesity: Code(s): E66.01 - Morbid (severe) obesity due to excess calories Category: Medical Plan: 1. Plan for lap sleeve gastrectomy including upper GI endoscopy. All tests has been completed and reviewed and the patient is cleared for the surgery. ?If diaphragmatic or ventral hernias are present at time of surgery, these will be repaired laparoscopically as well. Risks and complications were discussed in detail including possible conversion to an open procedure, anastomotic leak, bleeding requiring transfusion, small bowel obstruction, , DVT and pulmonary embolism, cardiac, or pulmonary complications, as [facility] complications such as anastomotic ulcer, insufficient weight loss and vitamin deficiencies. I emphasized the importance of close follow-up, adherence to instructions and good communication. So far she has proven to be an excellent communicator and very compliant with all our directions accomplishing a great weight loss. I believe that she is an excellent candidate and she is ready. 2. Preop prescriptions were provided and explained the purpose of each one. Need to be purchased preop. Start Pantoprazole now as you get it from the pharmacy, 1 pill per day. Sucralfate and Zofran are for after surgery as needed. 3. Bowel prep: please do 7 packets ?of Miralax mixing each one with a an 8oz glass of water, crystal light, gatorade zero, or propel ?on 02/03/24 and the same amount on 02/04/24. The Miralax you begin with one packet at a time in 8oz water or crystal light, gatorade zero, or propel ?as early in the day as you can and you do them back to back until you finish them. Continue the protein shakes during ?the bowel prep. 4. Needs to purchase 1oz medicine cups . 5. Needs to purchase Children's liquid Tylenol for postop pain control. 6. Avoid aspirin, motrin, Advil, Aleve, Ibuprofen, Naproxyn. Tylenol is OK. 7. She needs to purchase the Celebrate 4:1 protein shakes or the Celebrate multivitamins from the hospital's gift shop. 8. Will do basic preop blood work-up any day between Friday01/26/24 and Friday01/30/24 fasting for 12 hours and is scheduled to see the Anesthesiologist prior to the day of surgery. 9. Importance of adherence to postop folllow-up and recommendations was underscored and she understands that. 10. Stop food and bars as of Friday01/26/24 and create a meal plan with only protein shakes with the [employer] bogdan. Send me a screenshot of this plan. 11. No soups, broths or V8 12. The patient's?medical?history has been reviewed and they are considered low risk for post op DVT and therefore DVT prophylaxis is not considered necessary. Travel after surgery was reviewed. The patient has not disclosed any travel plans during the first 30 days after surgery and they have been advised that within the first 30 days after surgery any bus, plane, train or car travel over 2 hours in duration is contraindicated due to the possibility of developing blood clots from immobility. Any travel, needs to include periods of ambulation of 10 minutes in duration every 2 hours.? Patient was instructed to discuss any plans for travel during this period with their bariatric surgeon.? 13. Please take at the day of surgery the following medications: NONE 14. Stop any control pills and don't use them for one month after surgery 15. Absolutely no smoking or vaping, or marijuana until the surgery and for at least the first 4 weeks. Only nicotine patches are allowed. 16. Send me weight measurements on Friday01/23/24 and 01/30/24 and then on 02/05/24 the day of surgery before you go to the hospital. 17. Avoid any steroids by mouth for any reason. Let me know if someone prescribes them to you 18. These instructions supersede anything else you read in the handbook, anything you watched in videos or classes or you were told by any other provider. If there is any conflict, you follow the above instructions and nothing else. Orders: Orders Comprehensive Met. Panel Today E03.9 - Hypothyroidism, unspecified, E66.01 - Morbid (severe) obesity due to excess calories TSH reflex Free T4 Today E03.9 - Hypothyroidism, unspecified, E66.01 - Morbid (severe) obesity due to excess calories Hemoglobin A1c Today E03.9 - Hypothyroidism, unspecified, E66.01 - Morbid (severe) obesity due to excess calories Lipid Panel Today E03.9 - Hypothyroidism, unspecified, E66.01 - Morbid (severe) obesity due to excess calories Type and Screen Today E03.9 - Hypothyroidism, unspecified, E66.01 - Morbid (severe) obesity due to excess calories Partial Thromboplastin Time Today E03.9 - Hypothyroidism, unspecified, E66.01 - Morbid (severe) obesity due to excess calories Prothrombin Time INR Today E03.9 - Hypothyroidism, unspecified, E66.01 - Morbid (severe) obesity due to excess calories C Reactive Protein Today E03.9 - Hypothyroidism, unspecified, E66.01 - Morbid (severe) obesity due to excess calories Complete Blood Count Auto Diff Today E03.9 - Hypothyroidism, unspecified, E66.01 - Morbid (severe) obesity due to excess calories Insulin Today E03.9 - Hypothyroidism, unspecified, E66.01 - Morbid (severe) obesity due to excess calories Medications: New pantoprazole 40 mg PO DAILY 90 tabs 0RF K21.9 - Gastro-esophageal reflux disease without esophagitis sucralfate 10 mL PO BID 600 mL 2RF K21.9 - Gastro-esophageal reflux disease without esophagitis ondansetron Only take one every 12 hours as needed if you have nausea 4 mg PO Q12H 20 tabs 0RF nausea and vomiting R11.0 - Nausea polyethylene glycol 3350 Mix each measuring cup with 8oz of water, Crystal light, or Gatorade zero, or Propel and do 7 measuring cups on 02/03/24 and another 7 measuring cups on 02/04/24 17 grams PO DAILY 238 grams 0RF Z01.818 - Encounter for other preprocedural examination
[2024-01-19 09:01] VITALS: BMI 45.7
== END 2024-01-19 09:11 | disposition home or self-care (01) ==
PROVIDERS: Visit Provider Surgery
DX: E66.01 Morbid (severe) obesity due to excess calories (principal)
CPT/HCPCS: 99499

== ENCOUNTER → 2024-01-19 08:02 | Outpatient (BNVA) | payer OTHER, SELFPAY | PROVIDERS: Visit Provider Surgery ==

== ENCOUNTER 2024-02-05 06:16 | Inpatient (IN) | payer MEDICAID, SELFPAY ==
[2024-01-23 09:59] VITALS: BMI 45.7
[2024-01-30 07:26] LABS: Basophils Percent Auto 0.5 % (0-2); Eosinophils Absolute Auto 0.1 X10*3/uL (0.0-0.4); Eosinophils Percent Auto 1.4 % (0-4); Hematocrit 40.2 % (37.0-47.0); Hemoglobin 13.2 g/dl (12.0-16.0); Imm Gran Abs Auto 0.02 X10*3/uL (0.00-0.03); Imm Gran Pct Auto 0.2 % (0.0-0.4); Lymphocytes Absolute Auto 2.3 X10*3/uL (1.2-4.9); Lymphocytes Percent Auto 26.8 % (20-40); MANUAL DIFF FLAG NO; Mean Corpuscular HGB Conc 32.8 g/dl (31.0-35.0); Mean Corpuscular Hemoglobin 29.4 pg (27.0-33.0); Mean Corpuscular Volume 89.5 fL (80.0-98.0); Mean Platelet Volume 10.4 fL (9.4-12.3); Monocytes Absolute Auto 0.6 X10*3/uL (0.1-1.2); Monocytes Percent Auto 7.3 % (2-11); Neutrophils Absolute Auto 5.4 x10*3/uL (2.0-8.3); Neutrophils Percent Auto 63.8 % (45-73); Platelet Count 286 X10*3/uL (160-400); Red Blood Count 4.49 X10*6/uL (4.20-5.50); Red Cell Distribution Width 13.5 % (11.0-16.0); White Blood Count 8.5 X10*3/uL (4.8-10.8)
[2024-01-30 07:35] LABS: INTERNATIONAL NORM RATIO 1.2 (0.9-1.1); Prothrombin Time 13.7 SEC (10.9-12.4)
[2024-01-30 07:37] LABS: Partial Thromboplastin Time 36.9 SEC (26.0-36.8)
[2024-01-30 07:56] LABS: Estimated Average Glucose 100 mg/dL; Hemoglobin A1C 129.0878 umol/L; Hemoglobin A1c % 5.1 % (<6.0); Total Hemoglobin (HGBA1C) 4067.3651 umol/L
[2024-01-30 08:02] LABS: Alanine Aminotransferase 22 U/L (0-31); Albumin Level 4.2 g/dL (3.5-5.0); Alkaline Phosphatase 53 U/L (39-117); Anion Gap 15 (12-20); Aspartate Amino Transferase 25 U/L (5-31); Bilirubin Total 0.5 mg/dL (0.0-1.0); Blood Urea Nitrogen 9 mg/dL (9-16); C Reactive Protein 1.07 mg/dL (< or = 0.50); Calcium 9.8 mg/dL (8.4-10.2); Carbon Dioxide 24 mmol/L (22-29); Chloride 103 mmol/L (96-108); Cholesterol 174 mg/dL (<200); Creatinine Clr Calc Pharmacy 166.7; Estimated Glomerular Filt Rate > 60; Glucose Random 79 mg/dL (60-115); HDL Cholesterol 24 mg/dL (>40); LDL Cholesterol Calculated 134 mg/dL (<100); Potassium 3.8 mmol/L (3.3-5.1); Sodium 138 mmol/L (135-145); Total Protein 7.3 g/dL (6.5-8.0); Triglycerides 82 mg/dL (<150)
[2024-01-30 08:17] LABS: Insulin 11 uU/mL (2-29); TSH reflex Free T4 1.88 uIU/mL (0.32-4.0)
[2024-02-05] VITALS (10 sets, daily range): BP systolic 100–152; BP diastolic 57–84; PULSE 67–92; RESP 12–18; TEMP 35.9–36.6; O2SAT 94–100; BMI 43.7
[2024-02-05 06:25] LABS: UPreg QC Valid YES; Urine Pregnancy NEGATIVE (NEGATIVE)
[2024-02-05] MEDS: Aprepitant 32 MG/4.4 ML VIAL IVPUSH (06:40)
[2024-02-05] MEDS: Lactated Ringers 1,000 ML 999 ML IV (06:41)
--- NOTE | 2024-02-05 07:25 | P.CONAN_ITS ---
Documented by User: Karen Guerra NP 02/04/24 09:29 HPI - Anesthesia Eval Consult details Narrative: 24yo F for Gastrectomy Sleeve,EGD,possibel Diaphragmatic Hernia,possible Ventral Hernia,possible Open PMFSH Active Problems Active Problems: All Active Problems Hypothyroidism (Acute) Vitamin B1 deficiency (Acute) Vitamin A deficiency (Acute) Vitamin D deficiency (Acute) Steatosis, liver (Acute) Insomnia (Acute) PCOS (polycystic ovarian syndrome) (Acute) Anxiety (Acute) ADHD (Acute) Morbid obesity (Acute) Past Medical History Medical History (Updated 01/23/24 @ 09:44 by Ellen Muniz RN) Joint pain Back pain Thyroid disease Depression Steatosis, liver Insomnia PCOS (polycystic ovarian syndrome) Anxiety ADHD Morbid obesity Family History Family History (Updated 09/12/23 @ 09:42 by Mitzy Kaye CMA) Mother Mental health disorder Addiction Father Mental health disorder Addiction Sister Obesity Mental health disorder Sister No problems noted. Family history of problems with anesthesia: No Surgical History Surgical History (Updated 01/23/24 @ 09:46 by Ellen Muniz RN) H/O wisdom tooth extraction History of esophagogastroduodenoscopy (EGD) History of ankle surgery Hx of knee surgery History of Problems with Anesthesia: Yes (PONV) Social History Social History (Updated 09/12/23 @ 09:43 by Mitzy Kaye CMA) Are you a primary special needs caregiver to a significant other at home: No Do you presently have visiting nurse or other home services: No Alcohol intake: current Alcohol intake frequency: a few times a month Patient Tobacco Use Status: Former Tobacco user Years Smoked: 4 Use of substances other than those prescribed or required for medical reasons: No Have you been hit, kicked, punched, or otherwise hurt by someone within the past year? If so, by whom?: No Are you DNR?: No Advance Directives: No Advance Directives Information Provided: No Advance Directives on File: No Recently lost weight without trying: No Eating poorly because of decreased appetite: No Nutrition Risks: No Nutritional Risk Patient : No : No Poor oral hygiene: No Meds Allergies Allergy/AdvReac Type Severity Reaction Status Date / Time adhesive tape Allergy Mild Rash Verified 01/30/24 07:54 lactose AdvReac Intermediate Gastrointestinal Verified 01/30/24 07:54 Upset Home Medications ?Medication ?Instructions ?Recorded ?Confirmed ?Last Taken ?Type lisdexamfetamine 50 mg capsule 50 mg PO DAILY PRN Agitation 09/12/23 01/23/24 Unknown History (Lucas) lorazepam 0.5 mg tablet 0.5 mg PO DAILY PRN Anxiety 09/22/23 01/23/24 Unknown History Exam Height,Weight and Vital Signs: Height 5 ft 6 in Weight 128.367 kg Pertinent Lab Results Pertinent Lab Results: Laboratory Tests 01/30/24 01/30/24 07:05 07:10 WBC 8.5 RBC 4.49 Hgb 13.2 Hct 40.2 MCV 89.5 MCH 29.4 MCHC 32.8 RDW 13.5 Plt Count 286 MPV 10.4 Immature Gran % (Auto) 0.2 Neut % (Auto) 63.8 Lymph % (Auto) 26.8 Cole % (Auto) 7.3 Eos % (Auto) 1.4 Baso % (Auto) 0.5 Lymph # (Auto) 2.3 Cole # (Auto) 0.6 Eos # (Auto) 0.1 Baso # (Auto) 0.0 Abs Immat Gran (auto) 0.02 Absolute Neuts (auto) 5.4 Absolute Nucleated RBC 0.000 Nucleated RBC % (auto) 0.0 PT 13.7 H INR 1.2 H APTT 36.9 H Sodium 138 Potassium 3.8 Chloride 103 Carbon Dioxide 24 Anion Gap 15 BUN 9 Creatinine 0.72 Estim Creat Clear Calc 166.7 Estimated GFR > 60 Random Glucose 79 Estimat Average Glucose 100 Hemoglobin A1c % 5.1 Insulin Level 11 Calcium 9.8 Total Bilirubin 0.5 AST 25 ALT 22 Alkaline Phosphatase 53 C-Reactive Protein 1.07 H Total Protein 7.3 Albumin 4.2 Triglycerides 82 Cholesterol 174 LDL Cholesterol, Calc 134 H HDL Cholesterol 24 L TSH 1.88 Blood Type A Positive Antibody Screen NEGATIVE Narrative Narrative: EKG 09/2023 Vent. Rate : 070 BPM Atrial Rate : 070 BPM P-R Int : 152 ms QRS Dur : 084 ms QT Int : 394 ms P-R-T Axes : 053 031 030 degrees QTc Int : 425 ms Normal sinus rhythm Normal ECG No previous ECGs available Assessment and Plan Assessment Anesthesia Assessment: Chart Reviewed Final Anesthetic Review Family History of Problems with Anesthesia: No History of Problems with Anesthesia: Yes (PONV) Documented by User: Olga Key DO 02/05/24 07:30 PMFSH Past Medical History Medical History (Updated 01/23/24 @ 09:44 by Ellen Muniz RN) Joint pain Back pain Thyroid disease Depression Steatosis, liver Insomnia PCOS (polycystic ovarian syndrome) Anxiety ADHD Morbid obesity Family History Family History (Updated 09/12/23 @ 09:42 by Mitzy Kaye CMA) Mother Mental health disorder Addiction Father Mental health disorder Addiction Sister Obesity Mental health disorder Sister No problems noted. Family history of problems with anesthesia: No Surgical History Surgical History (Updated 01/23/24 @ 09:46 by Ellen Muniz RN) H/O wisdom tooth extraction History of esophagogastroduodenoscopy (EGD) History of ankle surgery Hx of knee surgery History of Problems with Anesthesia: Yes (PONV) Social History Social History (Updated 09/12/23 @ 09:43 by Mitzy Kaye CMA) Are you a primary special needs caregiver to a significant other at home: No Do you presently have visiting nurse or other home services: No Alcohol intake: current Alcohol intake frequency: a few times a month Patient Tobacco Use Status: Former Tobacco user Years Smoked: 4 Use of substances other than those prescribed or required for medical reasons: No Have you been hit, kicked, punched, or otherwise hurt by someone within the past year? If so, by whom?: No Are you DNR?: No Advance Directives: No Advance Directives Information Provided: No Advance Directives on File: No Recently lost weight without trying: No Eating poorly because of decreased appetite: No Nutrition Risks: No Nutritional Risk Patient : No : No Poor oral hygiene: No Meds Allergies Allergy/AdvReac Type Severity Reaction Status Date / Time adhesive tape Allergy Mild Rash Verified 01/30/24 07:54 lactose AdvReac Intermediate Gastrointestinal Verified 01/30/24 07:54 Upset Home Medications ?Medication ?Instructions ?Recorded ?Confirmed ?Last Taken ?Type lisdexamfetamine 50 mg capsule 50 mg PO DAILY PRN Agitation 09/12/23 01/23/24 Unknown History (Vyvanse) lorazepam 0.5 mg tablet 0.5 mg PO DAILY PRN Anxiety 09/22/23 01/23/24 Unknown History Exam Exam Date and Time: 02/05/24 0725 Height,Weight and Vital Signs: Height 5 ft 6 in Weight 128.367 kg Vital Signs Temperature 96.9 F 02/05/24 06:43 Pulse Rate 83 02/05/24 06:43 Respiratory Rate 16 02/05/24 06:43 Blood Pressure 119/68 02/05/24 06:43 Pulse Oximetry 96 02/05/24 06:43 Oxygen Delivery Method Room Air 02/05/24 06:43 Temperature 96.9 F 02/05/24 06:43 Pulse Rate 83 02/05/24 06:43 Respiratory Rate 16 02/05/24 06:43 Blood Pressure 119/68 02/05/24 06:43 Pulse Oximetry 96 02/05/24 06:43 Oxygen Delivery Method Room Air 02/05/24 06:43 Airway Mallampati Class: II TM Dist: >3cm Neck ROM: Full Loose/Missing/Broken Teeth: No (patient denies any loose or broken teeth) Heart: S1S2 Lungs: CTAB Assessment and Plan Assessment Anesthesia Assessment: Anesthesia Plan Discussed and Chart Reviewed Final Anesthetic Review Family History of Problems with Anesthesia: No History of Problems with Anesthesia: Yes (PONV) NPO: Yes ASA Class: III Final Preanesthetic Review: No Changes in Pt Med Stat, Meds/Allgs Chart Reviewed, Consent Obtained/Reviewed and Anes Risks/Benef Reviewed Patient Risk: Intermediate Procedure Risk: Intermediate Anesthetic Plan Anesthetic Plan: GA and Agree w/ Assess. and Plan Disposition: Standard PACU
--- NOTE | 2024-02-05 07:27 | MHC.SHP ---
Pre-Procedural Eval Section A - 24 Hr Update-Section A only Date of Service: 02/05/24 The patient is an INPATIENT: Yes The patient has been examined within 24 hours of the surgical procedure. The History & Physical has been completed within 30 days and I have reviewed it.: Yes Section B - Complete if H&P > 30 days Chief Complaint: Obesity Relevant Family History (Specify if Yes): No Relevant Social History: None Present Medications: None Medical History: No relevant PMH History of Previous Operations: No relevant previous surgery Allergies: Allergies Allergy/AdvReac Type Severity Reaction Status Date / Time adhesive tape Allergy Mild Rash Verified 01/30/24 07:54 lactose AdvReac Intermediate Gastrointestinal Verified 01/30/24 07:54 Upset Review of Systems Sugical H&P ROS: Negative: Constitution, Cardiovascular, Respiratory, Neurological, Psychiatric, Hem-Onc, Allergic/Immunologic, Gastrointestinal, Genitourinary, Musculoskeletal, Integumentary, Endocrine and Eyes/Ears/Nose/Throat Exam Surgical H&P Exam: Normal: HEENT, Normal: Heart, Normal: Lungs, Normal: Extremities, Normal: Abdomen, Normal: Skin and Normal: Neurological Plan Diagnosis/Plan: Unchanged I have reviewed the history and physical and performed a pertinent physical examination on my patient. No changes have occurred unless specified. Time Spent With Patient Time: Total time managing care of this patient today ____ minutes.
[2024-02-05] MEDS: Scopolamine 1.5 MG PATCH.TD.3 EAR-BEHIND (07:51)
--- NOTE | 2024-02-05 08:12 | P.BOP_ITS ---
Brief Operative Note Date of Service: 02/05/24 Pre-op diagnosis: Morbid obesity with comorbidities (see below) Post-op diagnosis: same (& congenital abdominal adhesions) Procedure: INITIAL PATIENT BMI ON PRESENTATION AT OUR OFFICE: 54.4 kg/m2 LAST BMI BEFORE SURGERY: 44.1 kg/m2 COMORBIDITIES: ADHD, anxiety, insomnia, PCOS, liver steatosis, GERD, liver fibrosis, esophagitis ?The patient presented to the Weight Management Program with significant obesity that was negatively impacting the patient's comorbidities as listed above.? The program is a phased program with a special focus on preoperative medical weight management to promote substantial weight loss and prepare the patients for the second phase of the program: bariatric surgery. The patient participated in an intensive weekly lifestyle ?intervention and exercise program during which the patient ?has lost between the initial office visit and the last preoperative visit 53.8 lbs, or 16% of initial actual body weight. It was deemed appropriate for the patient to now have bariatric surgery. In light of the current Covid-19 pandemic and the well documented strong association of obesity and increased risk of worse outcomes if infected with Covid-19 (REFERENCES: https://pubmed.ncbi.nlm.nih.gov/08781785/ ,? https://pubmed.ncbi.nlm.nih.gov/07202574/ ), any delay in undergoing bariatric surgery may lead to the patient's worsening health condition and increased?risk of more severe Covid-19 disease if infected. In addition a recent?study from [facility] published in [facility] on 03/12/2021 ([email or web address]) found that, among patients with obesity, substantial weight loss achieved with surgery was associated with improved outcomes of COVID-19 infection. The findings suggest that obesity can be a modifiable risk factor for the severity of COVID-19 infection. In addition, the patient met the BMI-criteria for bariatric surgery based on the BMI on initial presentation. The patient should not be penalized for achieving such weight loss because ?it is not sustainable long-term without surgical intervention and it was achieved in preparation for bariatric surgery ?under my direction and based on my published research ([email or web address] and? https://www.soard.org/article/H5073-9627(57)41130-X/pdf ) ?that a 10% preoperative weight loss improves long-term weight loss after surgery and reduces perioperative complications.? Insurance carriers such as [facility] have endorsed my recommendations ?and have included in their policies criteria to include a 10% preoperative weight loss requirement. PROCEDURE: Esophago-gastroscopy, laparoscopic lysis of adhesions, laparoscopic sleeve gastrectomy and laparoscopic gastropexy INDICATIONS: This is a 24 year-old female who was electively scheduled for laparoscopic, possibly open sleeve gastrectomy. The risks and complications of the procedure were discussed with the patient in advance, particularly the possibility of ; pulmonary embolism; staple line leak; bleeding; GERD; cardiac, pulmonary, or renal complications; as well as long-term problems such as insufficient weight loss, vitamin deficiency, strictures, or ulcers. The patient understood all the risks, and was in agreement to proceed with surgery. DESCRIPTION OF PROCEDURE: After informed consent was obtained from the patient, the patient was given preoperative antibiotics, and was transferred to the operating room. After successful induction of general anesthesia, pneumatic compression devices were placed on both lower extremities. An upper endoscopy was performed next. The oropharynx and esophagus appeared to be within normal limits. There was no diaphragmatic hernia present consistent with the findings of the preoperative upper GI. The stomach was entered. Then after all fluid and air were suctioned and the stomach was fully decompressed, the scope was withdrawn and secured in the mid esophagus. The patient was then prepped and draped in the usual sterile manner, and abdominal access was established at the right upper quadrant with the Steven t echnique. A 12 mm blunt port was inserted, and the abdomen was insufflated with CO2 to a pressure of 15 mmHg. Under direct visualization, additional ports were placed, specifically two 5 mm Versi-step ports to the left upper quadrant, and a 5 mm Versi-Step port to the right upper quadrant. 1% lidocaine plain was used to infiltrate all port sites as well as all fascia defects. Following that, the patient was placed in a steep reverse Trendelenburg position. An additional 5 mm port was placed to the right flank for the Mediflex retractor that was used to retract the left lobe of the liver. The gastro-esophageal fat pad was opened with the ultrasonic device (Thunderbeat, Olympus) and the anterior esophagus and hiatus were exposed. The angle of His was opened with the ultrasonic device the fundus of the stomach from any diaphragmatic and splenic attachments. I then opened the gastrocolic ligament between the transverse colon and the greater curvature of the stomach with the ultrasonic device to enter the lesser sac and facilitate the ligation of the short gastric vessels. I started at a mid-point along the greater curvature and using the Thunderbeat, all short gastric vessels were divided all the way to the angle of His until the left brandy was completely dissected at its entirety. I then divided the gastro-colic ligament distally to a distance of about 3-4 cm proximal to the pylorus. There were extensive congenital adhesions between the pancreas and posterior gastric wall. Those were lysed completely with the ultrasonic device. Adhesiolysis took approximately 45 min to complete. The stomach was then divided transversely with two Endo NALDO-45 purple and three NALDO-60 articulating purple loads using the SIGNIA stapler and loads. Every effort was made that the gastric sleeve had a tubular shape and an even caliber throughout. Once the sleeve resection was completed, the staple line of the gastric sleeve was reinforced with Hemoclips. The resected stomach was retrieved without difficulty from the Steven port. A gastropexy was then performed in order to prevent postoperative GERD and partial gastric volvulus. Several interrupted 2.0 Surgidac sutures were placed between the sleeve's staple line and the previously divided greater omentum and gastro-colic ligament using the Endo-Stitch device. ?An upper endoscopy was performed. There was no narrowing at the GE junction. The scope was easily advanced all the way to the pylorus which was clearly visualized. There was no narrowing anywhere and the sleeve's caliber was even throughout. The sleeve's staple line was inspected and there was no evidence of ischemia, bleeding or dehiscence. At that point the gastroscope was withdrawn from the patient?s mouth while we were decompressing the bowel and the stomach from any remaining air. I looked into the lesser sac to see how the sleeve was situating and it was situating well. There was no bleeding from the staple line, spleen, or short gastric vessels. The Mediflex retractor was removed, and the undersurface of the liver was inspected and there was no bleeding. The patient was placed in supine position. I closed the fascial defect of the 12 mm port site with a figure of eight #1 Polysorb suture. Then 30cc Ropivacaine plain with 10 mg of Dexamethasone were used to infiltrate the fascial closure as well as all skin incisions. A total of 5ml Zynrelef was applied in the Steven wound. At this point, the abdomen was deflated, all ports were removed under direct vision, and no bleeding was noted from any of the port sites. The skin incisions were irrigated with saline and were closed with 4-0 absorbable monofilament sutures. Steri-Strips and OpSites were used to cover all incisions. The patient was extubated and was transferred in stable condition to the recovery room for further care. I was present and performed all covarrubias parts of the procedure. Ms. Scalescassidy was the assistant drafter. There were no residents to assist with this case. Sudarshan Castro MD, PhD, FACS Surgeon: Shine Castro MD Anesthesia: GETA, local and other (TAP block & 5ml Zynrelef) Was an Heel Sorter used for this Procedure?: No Heel Sorter: Rossi Moralez Estimated blood loss (mL): 10 IV fluids (mL): 2,500 Urine output (mL): 0 (No Fields to record output) Pathology: other (Stomach) Condition: stable Disposition: PACU
--- NOTE | 2024-02-05 08:15 | P.PNGS_ITS ---
Subjective Subjective Date of Service: 02/06/24 Interval history: Feels well. Mild incisional pain. She is tolerating phase 1 bariatric diet Physical Exam 2 Vital Signs: Vital Signs: Last Vital Signs Temp 96.9 F 02/05/24 06:43 Pulse 83 02/05/24 06:43 Resp 16 02/05/24 06:43 BP 119/68 02/05/24 06:43 Pulse Ox 96 02/05/24 06:43 O2 Del Method Room Air 02/05/24 06:43 BMI result Body Mass Index 43.7 GI: Inspection: Yes normal to inspection, Yes incision (clean, dry and intact) and Yes obesity Palpation (GI): Soft to palpation Extrem: Right lower extremity: normal to inspection (no calf tenderness) L eft lower extremity: normal to inspection (no calf tenderness) Objective Data Active Medications Haloperidol Lactate (Haloperidol Lactate 5 Mg/Ml Vial) 1 mg IVPUSH ONCE PRN PRN Reason: intractable nausea Stop: 02/05/24 13:30 Hydromorphone HCl (Hydromorphone Hcl 0.5 Mg/0.5 Ml Syringe) 0.5 mg IVPUSH Q5M PRN PRN Reason: Pain, Moderate to Severe (Pain Scale 4-10) Stop: 02/05/24 13:30 Lactated Ringer's (Lr) 1,000 mls @ 100 mls/hr IVCONT .Q10H [facility] Lactated Ringer's (Lr) 1,000 mls @ 999 mls/hr IV .Q1H1M [facility] Stop: 02/05/24 08:30 Last Admin: 02/05/24 06:41 Dose: 999 mls/hr Documented By: FABY Naloxone HCl (Naloxone Hcl 0.4 Mg/Ml Vial) 0.04 mg IVPUSH Q5M PRN PRN Reason: Excessive sedation or RR < 8 Labs 02/06/24 05:12 02/06/24 05:12 Labs: Laboratory Results - last 24 hr 02/05/24 06:16 Urine Test NEGATIVE Procedures Date of Service Date of Service: 02/06/24 Progress Note: A&P Assessment and plan (1) Morbid obesity: Status: Acute Assessment and Plan: s/p laparoscopic sleeve gastrectomy, lysis of adhesions and gastropexy Doing well Will check am labs and if OK the patient will be discharged home (2) Steatosis, liver: Status: Acute (3) Insomnia: Status: Acute (4) PCOS (polycystic ovarian syndrome): Status: Acute (5) Hypothyroidism: Status: Acute (6) ADHD: Status: Acute (7) Anxiety: Status: Acute (8) GERD (gastroesophageal reflux disease): Status: Acute (9) Esophagitis determined by biopsy: Status: Acute (10) S/P laparoscopic sleeve gastrectomy: Status: Acute (11) Congenital intra-abdominal adhesions: Status: Acute Time Spent With Patient Time: Total time managing care of this patient today ____ minutes. Quality Stroke Does the patient have a stroke diagnosis?: No VTE Prior VTE?: No VTE Risk Level:: Surgical - moderate VTE Device Contraindication: N/A - Device Ordered VTE Drug Contraindication: Treatment Not Indicated
--- NOTE | 2024-02-05 08:40 | PHA.MEDREC ---
Addendum entered by Stan Stroud RPh 02/05/24 14:58: Pt states stopped taking Vyvanse, med rec was updated. Original Note: Pharmacy Consult ? Medication Reconciliation Pharmacy has reviewed the medication reconciliation completed by nursing.
--- NOTE | 2024-02-05 11:07 | PM.DS ---
DS: Providers Provider Date of Service: 02/06/24 Date of admission: 02/05/24 06:16 Primary care physician: Unknown Physician DS: Diagnosis Discharge Diagnosis (1) Morbid obesity: Status: Acute (2) Steatosis, liver: Status: Acute (3) Insomnia: Status: Acute (4) PCOS (polycystic ovarian syndrome): Status: Acute (5) Hypothyroidism: Status: Acute (6) ADHD: Status: Acute (7) Anxiety: Status: Acute (8) GERD (gastroesophageal reflux disease): Status: Acute (9) Esophagitis determined by biopsy: Status: Acute DS: Summary Hospital Course Hospital Course: ADMITTING DIAGNOSIS: morbid obesity,?PCOS, hypothyroidism, anxiety, ADHD, insomnia, GERD, liver steatosis ? DISCHARGE DIAGNOSIS: same, s/p laparoscopic sleeve gastrectomy and gastropexy ? PAST SURGICAL HISTORY:? History of ankle surgery Hx of knee surgery ? PROCEDURE: upper endoscopy, laparoscopic sleeve gastrectomy and gastropexy ? DISCHARGE SUMMARY: ? History of Present Illness: ? The patient is a?24 year-old woman with a BMI of? ?43.7 ? kg/m2 and associated co-morbidities as described above. The patient had extensive work-up, lost? ?66 ? lbs preoperatively and was electively scheduled for laparoscopic, possible open sleeve gastrectomy and gastropexy. Risks and complications of the surgery were discussed with the patient in advance, particularly the possibility of , pulmonary embolism, anastomotic leak, bleeding, bowel injury, GERD, cardiac, renal or pulmonary complications. The patient understood all the risks and was in agreement with the surgical plan. ? Hospital Course: ? The patient underwent an uneventful laparoscopic sleeve gastrectomy with gastropexy on the day of admission. Postoperatively, the patient was transferred to the surgical floor. The patient received IV Acetaminophen and IV dilaudid for pain control. Patient was started on bariatric phase 1 diet POD #0. On postoperative day one, the patient was feeling well without nausea, vomiting, fevers, or tachycardia. The patient had some mild incisional pain and the abdomen was soft.? ? On the morning of postoperative day one, the patient was continued on 1 ounce of water or ice every half hour. During the day, the patient did fairly well, having some incisional pain, but able to ambulate adequately and to tolerate liquids well. ? Since the patient is doing well, we decided that the patient was ready to be discharged. The patient was given instructions to follow-up with me next week and to call my office for any fever over 101, persistent abdominal pain, nausea, vomiting, GERD, symptoms of DVT such as calf tenderness, or leg swelling, or pulmonary embolism such as chest pain or shortness of breath.? The patient was also instructed to drink 40-60 ounces of liquids per day using the 1-ounce cups. The patient had been given prescriptions for Tylenol for pain, Zofran prn for nausea, and pantoprazole and carafate previously. The patient was encouraged to ambulate and use the incentive spirometer. The patient was allowed to shower, but no baths, and encouraged to stay active at home. All of these instructions were given to the patient personally. All questions were answered and the patient understood all instructions, the instructions were also given to the patient in print. Time Attestation Discharge Coordination Time (in mins): 30 Quality: Safe Use of Opioids Does Pt have an Active Cancer Diagnosis on the Problem List?: No Quality: Stroke Does the patient have a stroke diagnosis?: No Physical Exam Vital Signs: Vital Signs: Last Vital Signs Temp 97.0 F 02/05/24 10:50 Pulse 92 02/05/24 10:50 Resp 12 02/05/24 10:50 BP 151/82 H 02/05/24 10:50 Pulse Ox 100 02/05/24 10:50 O2 Del Method Simple Mask 02/05/24 10:50 O2 Flow Rate 8 02/05/24 10:50 BMI result Body Mass Index 43.7 DS: Data Data Completed and Pending Pending studies at discharge: Pending at discharge 02/05/24 09:58 Surgical [PTH] Routine Labs on day of discharge: Laboratory Results - last 24 hr 02/05/24 06:16 Urine Test NEGATIVE Discharge Plan Discharge Anticipated Discharge Date/Time: 02/06/24 10:00 Patient Disposition: Home, Self-Care Discharge Diagnosis: s/p laparoscopic sleeve gastrectomy with gastropexy Referrals: Physician,Unknown J [Physician] - 1 Week Discharge Medications: Continued levothyroxine 25 mcg capsule 25 mcg PO DAILY Qty: 90 0RF lorazepam 0.5 mg tablet 0.5 mg PO DAILY PRN (Reason: Anxiety) pantoprazole 40 mg tablet,delayed release (DR/EC) 40 mg PO DAILY Qty: 90 0RF sucralfate 100 mg/mL suspension 10 ml PO BID Qty: 600 2RF ondansetron 4 mg tablet,disintegrating 4 mg PO Q12H Qty: 20 0RF Rx Instructions: Only take one every 12 hours as needed if you have nausea Discontinued cholecalciferol (vitamin D3) 125 mcg (5,000 unit) capsule 125 mcg PO DAILY Qty: 90 0RF vitamin A palmitate 3,000 mcg (10,000 unit) capsule 10,000 unit PO DAILY Qty: 60 0RF thiamine HCl (vitamin B1) 100 mg tablet 100 mg PO DAILY Qty: 90 0RF polyethylene glycol 3350 17 gram/dose powder 17 g PO DAILY Qty: 238 0RF Rx Instructions: Mix each measuring cup with 8oz of water, Crystal light, or Gatorade zero, or Propel and do 7 measuring cups on 02/03/24 and another 7 measuring cups on 02/04/24 Discharge Orders: Discharge Order (Routine); Ordered 02/06/24 Ordered By: Shine Castro Activity on Discharge: No heavy lifting Stand Alone Forms: Patient Portal Discharge page Print Language: Upper Sorbian Care Plan Goals: weight loss Health Concerns: morbid obesity Plan of Treatment: No tub baths, sex or returning to work until discussed at first post op appointment. No alcohol, tobacco or illegal drug use. Continue to use incentive spirometer hourly while awake. Walk in home for 5- 10 minutes every 2 hours during the first week. Wear abdominal binder with activity. Follow all meal plan instructions from your bariatric surgeon. Review bariatric handbook and call with any questions. Discharge Instructions 1. Please call your doctor or come back to the emergency room should any new symptoms arise. 2. Activity: abstain from alcohol,? limited stair climbing, no bending, no driving, no exercise, no illicit substances, no lifting, no sex, no tub bath, no work. 4. Diet: follow your bariatric surgeons recommendations for advancing diet. 5. Dressing Change/Wound Care: Your incisions are covered with waterproof dressings. You can shower with these and pat dry. Do not rub over dressings or incisions. If the area is tender, you may apply an ice pack for short intervals (no more than 20 minutes on, followed by at least 20 minutes off). Do not apply heat. Do not use creams, lotions, or topical antibiotics unless instructed to do so by your surgeon. 6. Call your doctor if: - Your temperature exceeds 101.5 F - You experience excessive pain or swelling - You have an unexpected reaction to medication - You have excessive bleeding - You experience continued vomiting/nausea - Your incision begins to separate - Your incision shows signs of infection such as increased redness, swelling, excessive pain, heat, or drainage (light blood or clear fluid is normal) General instructions: No lifting greater than 10 lbs for the next 6 weeks[address] driving within 24 hours of taking narcotic pain medications. If you do not move your bowels in the next 2 days, please take milk of magnesia over the counter. Please follow the post op diet and do not advance your diet until you are seen in the office in about 2 weeks. Please walk around your home every hour or two to prevent blood clots from forming in your legs. You do not need to wake from sleeping to walk. Please sleep in a bed or couch to prevent kinking at the hips and knees. Please take your incentive spirometer (your lung floor clerk) home with you and use it for the next few days to prevent pneumonias. You may shower, no hot tubs, baths or swimming pools. Please call the office with any questions or concerns such as increasing abdominal pain, fever, chills, shortness of breath, chest pain, leg pain or swelling, or redness or drainage from your incisions. Please make sure you are consuming 40-60 ounces of total fluids per day. Avoid all carbonation. Do not hesitate to contact the office with any questions at . The patient's medical history has been reviewed and they are considered low risk for post op DVT and therefore DVT prophylaxis is not considered necessary. Travel after surgery was reviewed. The patient has not disclosed any travel plans during the first 30 days after surgery and they have been advised that within the first 30 days after surgery any bus, plane, train or car travel over 2 hours in duration is contraindicated due to the possibility of developing blood clots from immobility. Any travel, needs to include periods of ambulation of 10 minutes in duration every 2 hours.? The patient was instructed to discuss any plans for travel during this period with their bariatric surgeon. Assessment: s/p laparoscopic sleeve gastrectomy with gastropexy Discharge Date/Time: 02/06/24 09:28
[2024-02-05] MEDS: Haloperidol Lactate 5 MG/ML VIAL 1 MG IVPUSH (11:35)
[2024-02-05 11:51] LABS: Hematocrit 38.9 % (37.0-47.0); Hemoglobin 13.4 g/dl (12.0-16.0)
[2024-02-05 11:56] LABS: Anion Gap 16 (12-20); Blood Urea Nitrogen 11 mg/dL (9-16); Calcium 9.3 mg/dL (8.4-10.2); Carbon Dioxide 23 mmol/L (22-29); Chloride 103 mmol/L (96-108); Creatinine Clr Calc Pharmacy 164.8; Estimated Glomerular Filt Rate > 60; Glucose Random 122 mg/dL (60-115); Potassium 3.7 mmol/L (3.3-5.1); Sodium 138 mmol/L (135-145)
[2024-02-05] MEDS: Lactated Ringers 1,000 ML 100 ML IVCONT ×2 (12:22→22:19)
[2024-02-05] MEDS: ceFAZolin Sodium/Dextrose,Iso 2 GM/50 ML PIGGYBACK IV (13:46)
[2024-02-05] MEDS: Acetaminophen 1,000 MG/100 ML PIGGYBACK 16.7 MG IV ×2 (14:22→19:49)
[2024-02-05] MEDS: Famotidine/PF 20 MG/2 ML VIAL IVPUSH (19:49)
[2024-02-05] MEDS: 0.9 % Sodium Chloride Flush 3 ML SYRINGE IVFLUSH (19:49)
[2024-02-06] MEDS: Acetaminophen 1,000 MG/100 ML PIGGYBACK 16.7 MG IV (01:43)
[2024-02-06 03:54] VITALS: BP 116/59; PULSE 80; RESP 16; TEMP 36.6; O2SAT 95
[2024-02-06 06:45] LABS: MANUAL DIFF FLAG NO
[2024-02-06 06:59] LABS: Anion Gap 17 (12-20); Blood Urea Nitrogen 9 mg/dL (9-16); Calcium 9.2 mg/dL (8.4-10.2); Carbon Dioxide 20 mmol/L (22-29); Chloride 103 mmol/L (96-108); Creatinine Clr Calc Pharmacy 182.8; Estimated Glomerular Filt Rate > 60; Glucose Random 94 mg/dL (60-115); Potassium 3.9 mmol/L (3.3-5.1); Sodium 136 mmol/L (135-145)
[2024-02-06 07:06] LABS: Basophils Percent Auto 0.1 % (0-2); Hematocrit 37.7 % (37.0-47.0); Hemoglobin 12.6 g/dl (12.0-16.0); Imm Gran Abs Auto 0.04 X10*3/uL (0.00-0.03); Imm Gran Pct Auto 0.4 % (0.0-0.4); Lymphocytes Absolute Auto 1.3 X10*3/uL (1.2-4.9); Mean Corpuscular HGB Conc 33.4 g/dl (31.0-35.0); Mean Corpuscular Hemoglobin 29.5 pg (27.0-33.0); Mean Corpuscular Volume 88.3 fL (80.0-98.0); Mean Platelet Volume 11.5 fL (9.4-12.3); Monocytes Absolute Auto 0.9 X10*3/uL (0.1-1.2); Monocytes Percent Auto 7.7 % (2-11); Neutrophils Absolute Auto 8.8 x10*3/uL (2.0-8.3); Neutrophils Percent Auto 79.8 % (45-73); Platelet Count 316 X10*3/uL (160-400); Red Blood Count 4.27 X10*6/uL (4.20-5.50); Red Cell Distribution Width 13.8 % (11.0-16.0); White Blood Count 11.1 X10*3/uL (4.8-10.8)
[2024-02-06] MEDS: Famotidine/PF 20 MG/2 ML VIAL IVPUSH (07:06)
[2024-02-06] MEDS: Levothyroxine Sodium 25 MCG TABLET PO (07:06)
[2024-02-06 07:18] VITALS: BP 119/58; PULSE 66; RESP 16; TEMP 37; O2SAT 96
--- NOTE | 2024-02-06 09:19 | MHC.CM.PN ---
CM MET WITH PT AT BEDSIDE. 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 +HCP PCP DORIS GUZMAN IN [place]: PT HAS BEEN MEDICALLY CLEARED FOR DC HOME, NO SERVICES. S/O WILL TRANSPORT HOME.
--- NOTE | 2024-02-06 13:46 | HO.POSTANES ---
Post Anesthesia Evaluation Post Anesthesia Evaluation Date of Service: 02/05/24 Vital Signs: Vital Signs Temp Pulse Resp BP Pulse Ox O2 Del Method 02/06/24 07:18 98.6 F 66 16 119/58 L 96 Room Air 02/06/24 03:54 97.9 F 80 16 116/59 L 95 Room Air Anesthesia: General Endotracheal-GETA Mental Status: Awake Pain Control: Satisfactory Nausea/Vomiting: None Hydration: Adequate Anesthesia-Related Issues: No Anes. Related Issues
--- OUTSIDE RECORDS SUMMARY | 2024-02-06 14:33 | XMS_ITS | Continuity of Care Document ---
Author Organization [facility] Address [address] [place] [address]- Care Team Providers Care Wastewater Operator Name Role Phone Jimmy OZUNA, Walter Day Primary Care Physician Encounter [facility] [place] Date(s): 04/16/21 - 05/18/21 [facility] [address] [place] [address]- Attending Physician: Louie López MD Admitting Physician: Louie López MD Allergies, Adverse Reactions, Alerts Substance Reaction Severity Status Lactose 1 Active 1Dairy sensitivity Medications Celebrate Multivitamin oral capsule 1 capsule, By Mouth, Daily, # 30 capsule, 0 Refills, Maintenance, 09/13/19 16:12:00 EDT Start Date: 09/13/19 Status: Ordered Chondroitin = 800 mg, By Mouth, Daily, 0 Refills, Maintenance, 09/13/19 16:13:00 EDT Start Date: 09/13/19 Status: Ordered LORazepam 0.5 mg oral tablet 1 tablet = 0.5 mg, By Mouth, 3 times a day, 0 Refills, Maintenance, 06/26/20 10:04:00 EDT, Partial fill upon patient request if the prescription is for a schedule II opioid drug. Start Date: 06/26/20 Status: Ordered Probiotic Formula By Mouth, Daily, 0 Refills, Maintenance, 10/14/19 17:01:00 EDT Start Date: 10/14/19 Status: Ordered sertraline 25 mg oral tablet 1 tablet = 25 mg, By Mouth, Daily, 0 Refills, Maintenance, 06/26/20 10:04:00 EDT, Partial fill uponpatient request if the prescription is for a schedule II opioid drug. Start Date: 06/26/20 Status: Ordered Trulicity Pen 0.75 mg/0.5 mL subcutaneous solution 0.5 mL = 0.75 mg, Subcutaneous Injection, Every week, rotate injection sites, # 2 mL, 0 Refills, Maintenance, 03/03/21 12:04:00 EST, Solution, [facility], Partial fill upon patient request if the prescription is for a schedule II opioid drug.... Start Date: 03/03/21 Status: Ordered vitamin E 400 iu oral capsule 1 capsule = 400 International_Units, By Mouth, 2 times a day, # 180 capsule, 3 Refills, Maintenance, 03/12/17 17:06:56 Start Date: 03/12/17 Status: Ordered Vyvanse 30 mg oral capsule 1 capsule = 30 mg, By Mouth, Daily in AM, 0 Refills, Maintenance, 01/11/21 16:24:00 EDT, Capsule, Partial fill upon patient request if the prescription is for a schedule II opioid drug. Start Date: 01/11/21 Stop Date: 02/10/21 Status: Ordered Problem List Condition Effective Dates Status Health Status Inform ant Obesity hypoventilation syndrome(Confirmed) Active Anxiety(Confirmed) Active ADD (attention deficit disorder)(Confirmed) Active Patellar dislocation(Confirmed) Active Broken ankle(Confirmed) Active Morbid obesity(Confirmed) Active Morbid obesity(Confirmed) Active NAFLD (nonalcoholic fatty li barak disease)(Confirmed) Active Non-alcoholic fatty liver(Confirmed) Active Obesity(Confirmed) Active Obstructive sleep apnea(Confirmed) Active PCOS (polycystic ovarian syndrome)(Confirmed) Active Severe obesity(Confirmed) Active Social History Social History Type Response Smoking Status Never smoker; Tobacc o user in household: No entered on: 12/30/16 Sex
--- OUTSIDE RECORDS SUMMARY | 2024-02-06 14:33 | XMS_ITS | Continuity of Care Document ---
Author Organization [facility] Address [address] [place] [address]- Care Team Providers Care Supervisor Drying And Softening Name Role Phone Jimmy OZUNA, Walter Day Primary Care Physician Encounter [facility] Date(s): 02/09/20 - 03/10/20 [facility] [address] [place] [id number] Allergies, Adverse Reactions, Alerts No Known Medication Allergies Medications aspirin (OP) 0 Refills, Maintenance, 2 Start Date: 09/13/19 Status: Ordered calcium (as carbonate and lactate)-vitamin D 200 mg-250 intl units oral tablet, chewable 1 tablet, 2 times a day, 0 Refills, Maintenance, 09/13/19 16:13:00 EDT Start Date: 09/13/19 Status: Ordered Celebrate Multivitamin oral capsule 1 capsule, By Mouth, Daily, # 30 capsule, 0 Refills, Maintenance, 09/13/19 16:12:00 EDT Start Date: 09/13/19 Status: Ordered Chondroitin = 800 mg, By Mouth, Daily, 0 Refills, Maintenance, 09/13/19 16:13:00 EDT Start Date: 09/13/19 Status: Ordered Fiber Lax 0 Refills, Maintenance, 10/14/19 17:02:00 EDT Start Date: 10/14/19 Status: Ordered phentermine 15 mg oral capsule 1 capsule = 15 mg, By Mouth, Daily in AM, # 30 capsule, 5 Refills, Maintenance, 08/09/20 14:14:00 EDT, Capsule, [facility], 167.3, cm, 04/16/19 13:50:00 EST, Height, 135.6, kg, 04/16/19 13:50:00 EST, Dry Weight Start Date: 08/09/20 Status: Ordered Probiotic Formula By Mouth, Daily, 0 Refills, Maintenance, 10/14/19 17:01:00 EDT Start Date: 10/14/19 Status: Ordered Topamax 50 mg oral tablet See Instructions, 1 1/2 tablet By Mouth once daily, # 45 each, 5 Refills, Maintenance, 10/14/19 17:01:00 EDT, [facility], 167.3, cm, 04/16/19 13:50:00 EST, Height, 135.6, kg, 04/16/19 13:50:00 EST, Dry Weight Start Date: 10/14/19 Status: Ordered Tylenol 325 mg oral capsule 1 capsule = 325 mg, By Mouth, 3 times a day, 0 Refills, Maintenance, 01/12/18 16:01:14 EDT Start Date: 01/12/18 Status: Ordered vitamin E 400 iu oral capsule 1 capsule = 400 International_Units, By Mouth, 2 times a day, # 180 capsule, 3 Refills, Maintenance, 03/12/17 17:06:56 Start Date: 03/12/17 Status: Ordered Problem List Condition Effective Dates Status Health Status Inform ant Morbid obesity(Confirmed) Active Social History Social History Type Response Smoking Status Never smoker; Tobacc o user in household: No entered on: 12/30/16 Sex
--- OUTSIDE RECORDS SUMMARY | 2024-02-06 14:33 | XMS_ITS | Continuity of Care Document ---
Author Organization [facility] Address [address] [place] [address]- Care Team Providers Care Coupon And Bond Collection Clerk Name Role Phone Walter Marquez MD Primary Care Physician Encounter [facility] [place] Date(s): 12/10/19 - 01/14/20 [facility] [address] [place] [phone]- [facility] Attending Physician: Louie López MD Admitting Physician: Louie López MD Referring Physician: Walter Marquez MD Allergies, Adverse Reactions, Alerts No Known Medication [...] 14:14:00 EDT, Capsule, [facility], 273.3, cm, 04/16/19 13:50:00 EST, Height, 135.6, kg, 04/16/19 13:50:00 EST, Dry Weight Start Date: 08/09/20 Status: Ordered Probiotic Formula By Mouth, Daily, 0 Refills, Maintenance, 10/14/19 17:01:00 EDT Start Date: 10/14/19 Status: Ordered Topamax 50 mg oral tablet See Instructions, 1 1/2 tablet By Mouth once daily, # 45 each, 5 Refills, Maintenance, 10/14/19 17:01:00 EDT, [facility], 167.3, cm, 04/16/19 13:50:00 [...]
--- OUTSIDE RECORDS SUMMARY | 2024-02-06 14:33 | XMS_ITS | Continuity of Care Document ---
Author Organization [facility] Address [address] [place] [id number]- Care Team Providers Care Back End Architect Name Role Phone Walter Marquez MD Primary Care Physician [place] [facility] [place] Date(s): 04/12/21 - 05/12/21 [facility] [address] [place] [phone]- Attending Physician: Shauna Zeng Admitting Physician: Admtr, [id number] Referring Physician: Admtr, [id number] Allergies, Adverse Reactions, Alerts Substance Reaction Severity [...]
--- OUTSIDE RECORDS SUMMARY | 2024-02-06 14:33 | XMS_ITS | Continuity of Care Document ---
Author Organization [facility] Address [address] [place] [address]- Care Team Providers Care Senior Qa Tester Name Role Phone Jimmy OZUNA, Walter Day Primary Care Physician [phone] Encounter [facility] Date(s): 05/17/20 - 06/16/20 [facility] [address] [place] [id number] Allergies, Adverse Reactions, Alerts No Known Medication [...] 17:02:00 EDT Start Date: 10/14/19 Status: Ordered Probiotic Formula By Mouth, Daily, 0 Refills, Maintenance, 10/14/19 17:01:00 EDT Start Date: 10/14/19 Status: Ordered Tylenol 325 [...] Effective Dates Status Health Status Inform ant Anxiety(Confirmed) Active ADD (attention deficit disorder)(Confirmed) Active Morbid obesity(Confirmed) Active NAFLD (nonalcoholic fatty li barak disease)(Confirmed) Active PCOS (polycystic ovarian syndrome)(Confirmed) Active Social History Social History Type Response Smoking Status Never smoker; Tobacc o user in household: No entered on: 12/30/16 Sex
--- OUTSIDE RECORDS SUMMARY | 2024-02-06 14:33 | XMS_ITS | Continuity of Care Document ---
Author Organization [facility] Address [address] [place] [address]- Care Team Providers Care Collections Professional Name Role Phone Jimmy OZUNA, Walter Day Primary Care Physician [phone] Encounter [facility] Date(s): 05/09/20 - 06/08/20 [facility] [address] [place] [id number] Allergies, Adverse Reactions, Alerts No Known [...]
--- OUTSIDE RECORDS SUMMARY | 2024-02-06 14:33 | XMS_ITS | Continuity of Care Document ---
Author Organization [facility] Address [address] [place] [address]- Care Team Providers Care Retort Operator Name Role Phone Walter Marquez MD Primary Care Physician [id number] [address] [place] [phone]- Attending Physician: Veronika Tamayo RD Admitting Physician: Veronika Tamayo RD Allergies, Adverse Reactions, Alerts Substance Reaction Severity [...] opioid drug. Start Date: 06/26/20 Status: Ordered vitamin E 400 iu oral capsule 1 capsule = 400 International_Units, By Mouth, 2 times a day, # 180 capsule, 3 Refills, Maintenance, 03/12/17 17:06:56 Start Date: 03/12/17 Status: Ordered Problem List Condition Effective Dates Status Health Status Inform ant Anxiety(Confirmed) Active ADD (attention deficit disorder)(Confirmed) Active Patellar dislocation(Confirmed) Active Broken ankle(Confirmed) Active Morbid obesity(Confirmed) Active NAFLD (nonalcoholic fatty li barak disease)(Confirmed) Active PCOS (polycystic ovarian syndrome)(Confirmed) Active Social History Social History Type Response Smoking Status Never smoker; Tobacc o user in household: No entered on: 12/30/16 Sex
--- OUTSIDE RECORDS SUMMARY | 2024-02-06 14:33 | XMS_ITS | Continuity of Care Document ---
Author Organization [facility] Address [address] [place] [id number]- Care Team Providers Care Back Sizer Name Role Phone Jimmy OZUNA, Walter Day Primary Care Physician Encounter [facility] Date(s): 06/26/20 - 07/03/20 [facility] [address] [place] [id number] Attending Physician: Joey OZUNA, Walter Ron Referring Physician: Louie López MD Allergies, Adverse Reactions, [...] disease)(Confirmed) Active PCOS (polycystic ovarian syndrome)(Confirmed) Active Procedures Procedure Date Related Diagnosis Body Site Status Ankle fracture repair 2018 Com pleted Patellar ligament repair 1 2011 Completed 1Recurrent patellar dislocation, 3 surgeries Vital Signs Most recent to oldest [Reference Range]: 1 Weight 145.45 kg (06/26/20 9:53 AM) Dry Weight 145.45 kg (06/26/20 9:53 AM) Weight Obtained Via Patient/family state d (06/26/20 9:53 AM) Social History Social History Type Response Smoking Status Never smoker; Tobacc o user in household: No entered on: 12/30/16 Sex
--- OUTSIDE RECORDS SUMMARY | 2024-02-06 14:33 | XMS_ITS | Continuity of Care Document ---
Author Organization [facility] Address [address] [place] [address]- Care Team Providers Care Spinal Surgeon Name Role Phone Jimmy OZUNA, Walter Day Primary Care Physician [phone] Encounter [facility] [place] Date(s): 02/08/20 - 03/31/20 [facility] [address] [place] [phone]- Attending Physician: Louie López MD Admitting Physician: Louie López MD Allergies, Adverse Reactions, Alerts No Known [...] Health Status Inform ant Morbid obesity(Confirmed) Active NAFLD (nonalcoholic fatty li barak disease)(Confirmed) Active PCOS (polycystic ovarian syndrome)(Confirmed) Active Social History Social History Type Response Smoking Status Never smoker; Tobacc o user in household: No entered on: 12/30/16 Sex
--- OUTSIDE RECORDS SUMMARY | 2024-02-06 14:33 | XMS_ITS | Continuity of Care Document ---
Author Organization [facility] Address [address] [place] [address]- Care Team Providers Care Cement Cutter Name Role Phone Walter Marquez MD Primary Care Physician Encounter [facility] Date(s): 03/22/20 - 04/21/20 [facility] [address] [place] [address]- Allergies, Adverse Reactions, Alerts No Known Medication [...]
--- OUTSIDE RECORDS SUMMARY | 2024-02-06 14:33 | XMS_ITS | Continuity of Care Document ---
Author Organization [facility] Address [address] [place] [address]- Care Team Providers Care Chief Information Officer Name Role Phone Jimmy OZUNA, Walter Day Primary Care Physician [place] [facility] [place] Date(s): 10/14/19 - 10/21/19 [facility] [address] [place] [address]- [facility] Attending Physician: Louie López MD Allergies, Adverse Reactions, [...] Mouth, Daily in AM, # 30 capsule, 2 Refills, Hard Stop 08/09/20 14:14:00 EDT,08/10/19 14:14:00 EDT, Capsule, [facility], 167.3, cm, 04/16/19 13:50:00 EST, Height, 135.6, kg, 04/16/19 13:50:00 EST, Dry Weight Start Date: 08/10/19 Stop Date: 08/09/20 Status: Ordered phentermine 15 mg oral capsule 1 capsule = 15 mg, By Mouth, Daily in AM, # 30 capsule, 5 Refills, Maintenance, 08/09/20 14:14:00 EDT, Capsule, [facility], 167.3, cm, 04/16/19 13:50:00 EST, Height, 135.6, kg, 04/16/19 13:50:00 EST, Dry Weight Start Date: 08/09/20 Status: Ordered Probiotic Formula By Mouth, Daily, 0 Refills, Maintenance, 10/14/19 17:01:00 EDT Start Date: 10/14/19 Status: Ordered Topamax 50 mg oral tablet See Instructions, 1 1/2 tablet By Mouth once daily, # 45 each, 5 Refills, Maintenance, 10/14/19 17:01:00 EDT, [facility], 167.3, cm, 04/16/19 [...]
--- OUTSIDE RECORDS SUMMARY | 2024-02-06 14:33 | XMS_ITS | Continuity of Care Document ---
Author Organization [facility] Address [address] [place] [address]- Care Team Providers Care Java Sql Developer Name Role Phone Jimmy OZUNA, Walter Day Primary Care Physician Encounter [facility] [place] Date(s): 02/04/22 - 03/06/22 [facility] [address] [place] [address]- [place] Allergies, Adverse Reactions, Alerts Substance Reaction Severity [...] Date: 02/10/21 Status: Ordered Problem List Condition Confirmation Course Effective Dates Status H ealth Status Informant Obesity hypoventilation syndrome Confirmed Active Anxiety Confirmed Active ADD (attention deficit disorder) Confirmed Active Patellar dislocation Confirmed Active Broken ankle Confirmed Active Morbid obesity Confirmed Active Morbid obesity Confirmed Active NAFLD (nonalcoholic fatty liver disease) Confirmed Active Non-alcoholic fatty liver Confirmed Active Obesity Confirmed Active Obstructive sleep apnea Confirmed Active PCOS (polycystic ovarian syndrome) Confirmed Active Severe obesity Confirmed Active Social History Social History Type Response Smoking Status Never smoker; Tobacc o user in household: No entered on: 12/30/16 Sex Patient Care team information Care Team Personnel Name: Walter Marquez MD Position: [facility] Outreach Member Role: PCP Address: Address: [address] [place] [address]- Care Team Related Persons Name: GURWINDER FALLON Address: home [address] [place] [address] Name: GURWINDER FALLON Address: home [address] [place] [address]
--- OUTSIDE RECORDS SUMMARY | 2024-02-06 14:33 | XMS_ITS | Continuity of Care Document ---
Author Organization [facility] Address [address] [place] [address]- Care Team Providers Care Yard Demurrage Clerk Name Role Phone Jimmy OZUNA, Walter Day Primary Care Physician Encounter [facility] Date(s): 12/13/19 - 01/12/20 [facility] [address] [place] [address]- [facility] Allergies, Adverse Reactions, Alerts No Known Medication [...] 5 Refills, Maintenance, 08/09/20 14:14:00 EDT, Capsule, [facility], 167.3, cm, 04/16/19 13:50:00 EST, Height, 135.6, kg, 04/16/19 13:50:00 EST, Dry Weight Start Date: 08/09/20 Status: Ordered Probiotic Formula By Mouth, Daily, 0 Refills, Maintenance, 10/14/19 17:01:00 EDT Start Date: 10/14/19 Status: Ordered Topamax 50 mg oral tablet See Instructions, 1 1/2 tablet By Mouth once daily, # 45 each, 5 Refills, Maintenance, 10/14/19 17:01:00 EDT, [facility], 167.3, cm, 04/16/19 13:50:00 [...]
--- OUTSIDE RECORDS SUMMARY | 2024-02-06 14:33 | XMS_ITS | Continuity of Care Document ---
Author Organization [facility] Address [address] [place] [address]- Care Team Providers Care Kennel Operator Name Role Phone Jimmy OZUNA, Walter Day Primary Care Physician [phone] Encounter [facility] [place] Date(s): 04/27/19 - 07/25/19 [facility] [address] [place] [address]- [facility] Attending Physician: Not on Staff, Attending MD Allergies, Adverse Reactions, Alerts No Known Medication Allergies Medications Adderall 5 mg oral tablet 1 tablet = 5 mg, By Mouth, 2 times a day, 0 Refills, Maintenance, 01/12/18 16:00:40 EDT Start Date: 01/12/18 Status: Ordered Ortho Evra 1 patch, Topically, 0 Refills, Maintenance, 12/10/17 16:16:21 EDT Start Date: 12/10/17 Status: Ordered Tylenol 325 mg oral capsule 1 capsule = 325 mg, By Mouth, 3 times a day, 0 Refills, Maintenance, 01/12/18 16:01:14 EDT Start Date: 01/12/18 Status: Ordered vitamin E 400 iu oral capsule 1 capsule = 400 International_Units, By Mouth, 2 times a day, # 180 capsule, 3 Refills, Maintenance, 03/12/17 17:06:56 Start Date: 03/12/17 Status: Ordered Vyvanse 10 mg oral capsule 1 capsule = 10 mg, By Mouth, Daily in AM, contents of capsules may be administered in water, 0 Refills, Maintenance, 12/30/16 10:42:59, Capsule Start Date: 12/30/16 Status: Ordered Problem List Condition Effective Dates Status Health Status Inform ant Morbid obesity(Confirmed) Active Social History Social History Type Response Smoking Status Never smoker; Tobacc o user in household: No entered on: 12/30/16 Sex
--- OUTSIDE RECORDS SUMMARY | 2024-02-06 14:33 | XMS_ITS | Continuity of Care Document ---
Author Organization [facility] Address [address] [place] [address]- Care Team Providers Care Machine Slat Basket Maker Name Role Phone Jimmy OZUNA, Walter Day Primary Care Physician Encounter [facility] [place] Date(s): 07/03/20 - 08/02/20 [facility] [address] [place] [address]- Allergies, Adverse Reactions, Alerts Substance Reaction Severity [...] day, # 180 capsule, 3 Refills, Maintenance, 12/27/17 17:06:56 Start Date: 03/12/17 Status: Ordered Problem [...]
--- OUTSIDE RECORDS SUMMARY | 2024-02-06 14:33 | XMS_ITS | Continuity of Care Document ---
Author Organization [facility] Address [address] [place] [address]- Care Team Providers Care Casing Sewer Name Role Phone Jimmy OZUNA, Walter Day Primary Care Physician [phone] Encounter [facility] Date(s): 10/18/19 - 11/17/19 [facility] [address] [place] [address]- [facility] Allergies, Adverse Reactions, Alerts No Known [...] 5 Refills, Maintenance, 08/09/20 14:14:00 EDT, Capsule, [facility], 167.3, cm, 04/16/19 13:50:00 EST, Height, 135.6, kg, 04/16/19 13:50:00 EST, Dry Weight Start Date: 08/09/20 Status: Ordered Probiotic Formula By Mouth, Daily, 0 Refills, Maintenance, 10/14/19 17:01:00 EDT Start Date: 10/14/19 Status: Ordered Topamax 50 mg oral tablet See Instructions, 1 1/2 tablet By Mouth once daily, # 45 each, 5 Refills, Maintenance, 10/14/19 17:01:00 EDT, [facility], 167.3, cm, 04/16/19 [...]
--- OUTSIDE RECORDS SUMMARY | 2024-02-06 14:33 | XMS_ITS | Continuity of Care Document ---
Author Organization [facility] Address [address] [place] [address]- Care Team Providers Care Marketing Area Manager Name Role Phone Walter Marquez MD Primary Care Physician [place] [facility] [place] - 03/21/[address] [address] Attending Physician: Shauna Zeng Admitting Physician: AdmtrShauna Referring Physician: Admtr, Ar8 Allergies, Adverse Reactions, [...] Team Personnel Name: Walter Marquez MD Position: [facility] Outreach Member Role: PCP Address: Address: [address] [place] [address]- Care Team Related Persons Name: GURWINDER FALLON Address: home [address] [place] [address] Name: GURWINDER FALLON Address: east branch [address] [place] [address]
--- OUTSIDE RECORDS SUMMARY | 2024-02-06 14:33 | XMS_ITS | Continuity of Care Document ---
Author Organization [facility] Address [address] [place] [address]- Care Team Providers Care Restaurant Crew Person Name Role Phone Jimmy OZUNA, Walter Day Primary Care Physician Encounter [facility] Date(s): 04/19/22 - 08/17/[address] [address]- Attending Physician: Betzy Bella MD Admitting Physician: Betzy Bella MD Referring Physician: Gavino Bella MD Allergies, Adverse Reactions, Alerts Substance Reaction Severity Status Lactose 1 Active 1Dairy sensitivity Medications Adderall By Mouth, 0 Refills, Maintenance, 07/29/22 10:54:00 EDT, Partial fill upon patient request if the prescription is for a schedule II opioid drug. Start Date: 07/29/22 Status: Ordered Celebrate Multivitamin oral capsule 1 capsule, By Mouth, Daily, # 30 capsule, 0 Refills, Maintenance, 09/13/19 16:12:00 EDT Start Date: 09/13/19 Status: Ordered LORazepam 0.5 mg oral tablet 1 tablet = 0.5 mg, By Mouth, 3 times a day, 0 Refills, Maintenance, 06/26/20 10:04:00 EDT, Partial fill upon patient request if the prescription is for a schedule II opioid drug. Start Date: 06/26/20 Status: Ordered Trulicity Pen 1.5 mg/0.5 mL subcutaneous solution 0.5 mL = 1.5 mg, Subcutaneous Injection, Every week, rotate injection sites, # 2 mL, 11 Refills, Maintenance, 07/29/22 11:09:00 EDT, Solution, [facility], Partial fill upon patient request if the prescription is for a schedule II opioid drug.... Start Date: 07/29/22 Status: Ordered Vyvanse 30 mg oral capsule [...] Care team information Care Team Personnel Name: Jimmy OZUAN, Walter Day Position: [facility] Outreach Member Role: PCP Address: Address: [address] [place] [address]- Care Team Related Persons Name: GURWINDER FALLON Address: home [address] [place] [address] Name: GURWINDER FALLON Address: [place] [address]
--- OUTSIDE RECORDS SUMMARY | 2024-02-06 14:33 | XMS_ITS | Continuity of Care Document ---
Author Organization [facility] Address [address] [place] [address]- Care Team Providers Care Surgical Appliances Salesperson Name Role Phone Jimmy OZUNA, Walter Day Primary Care Physician [phone] Encounter [facility] Date(s): 01/01/21 - 02/01/21 [facility] [address] [place] [address]- Attending Physician: Louie López MD Admitting Physician: [...] sites, # 2 mL, 11 Refills, Maintenance, 01/12/21 9:22:00 EDT, Solution, [facility], Partial fill upon patient request if the prescription is for a schedule II opioid drug.... Start Date: 01/12/21 Status: Ordered vitamin E 400 iu oral [...] Active Non-alcoholic fatty liver(Confirmed) Active Obesity(Confirmed) Active PCOS (polycystic ovarian syndrome)(Confirmed) Active Severe obesity(Confirmed) Active Social History Social History Type Response Smoking Status Never smoker; Tobacc o user in household: No entered on: 12/30/16 Sex
--- OUTSIDE RECORDS SUMMARY | 2024-02-06 14:33 | XMS_ITS | Continuity of Care Document ---
Author Organization [facility] Address [address] [place] [address]- Care Team Providers Care Hydraulic Tester Name Role Phone Walter Marquez MD Primary Care Physician Encounter [facility] [place] Date(s): 10/23/20 - 01/27/21 [facility] [address] [place] [address] Attending Physician: Betzy Bella MD Admitting Physician: Betzy Bella MD Referring Physician: Walter Marquez MD Allergies, Adverse Reactions, Alerts Substance Reaction [...]
--- OUTSIDE RECORDS SUMMARY | 2024-02-06 14:33 | XMS_ITS | Continuity of Care Document ---
Author Organization [facility] Address [address] [place] [address]- Care Team Providers Care Evaluator Name Role Phone Jimmy OZUNA, Walter Dya Primary Care Physician [phone] En[place] [facility] [place] Date(s): 09/23/19 - 10/23/19 [facility] [address] [place] [address]- [facility] Attending Physician: Shauna Zeng Admitting Physician: AdmtrShauna Referring Physician: AdmtrShauna Allergies, Adverse Reactions, Alerts No Known Medication [...] 5 Refills, Maintenance, 08/09/20 14:14:00 EDT, Capsule, [facility], 167.3, cm, 04/16/19 13:50:00 EST, Height, 135.6, kg, 04/16/19 13:50:00 EST, Dry Weight Start Date: 08/09/20 Status: Ordered Probiotic Formula By Mouth, Daily, 0 Refills, Maintenance, 10/14/19 17:01:00 EDT Start Date: 10/14/19 Status: Ordered Topamax 50 mg oral tablet See Instructions, 1 1/2 tablet By Mouth once daily, # 45 each, 5 Refills, Maintenance, 10/14/19 17:01:00 EDT, [facility], 167.3, cm, 04/16/19 [...]
--- OUTSIDE RECORDS SUMMARY | 2024-02-06 14:33 | XMS_ITS | Continuity of Care Document ---
Author Organization [facility] Address [address] [place] [address]- Care Team Providers Care Featheredger And Reducer Machine Name Role Phone Jimmy OZUNA, Walter Day Primary Care Physician Encounter [facility] [place] Date(s): 06/02/20 - 07/02/20 [facility] [address] [place] [address]- Attending Physician: Shauna Zeng Admitting Physician: Shauna Zeng Referring Physician: Admtr ArJared Allergies, Adverse Reactions, Alerts Substance Reaction Severity [...]
--- OUTSIDE RECORDS SUMMARY | 2024-02-06 14:33 | XMS_ITS | Continuity of Care Document ---
Author Organization [facility] Address [address] [place] [address]- Care Team Providers Care Oil Well Services Field Supervisor Name Role Phone Jimmy OZUNA, Walter Day Primary Care Physician [phone] En[place] [facility] [place] Date(s): 04/16/19 - 04/23/19 [facility] [address] [place] [address]- [facility] Attending Physician: Louie López MD Referring Physician: Walter [...] Health Status Inform ant Morbid obesity(Confirmed) Active Vital Signs Most recent to oldest [Reference Range]: 1 Height 167.3 cm (04/16/19 1:50 PM) Weight 135.6 kg (04/16/19 1:50 PM) Pulse Rate [55-90 bpm] 100 bpm *H* (04/16/19 1:50 PM) Body Mass Index [18.5-24.99] 48.45 *>HHI* (04/16/19 1:50 PM) Blood Pressure [71-110/30-71 mm Hg] 121/ 53mm Hg *H* (04/16/19 1:50 PM) Dry Weight 135.6 kg (04/16/19 1:50 PM) Social History Social History Type Response Smoking Status Never smoker; Tobacc o user in household: No entered on: 12/30/16 Sex
--- OUTSIDE RECORDS SUMMARY | 2024-02-06 14:33 | XMS_ITS | Continuity of Care Document ---
Author Organization [facility] Address [address] [place] [address]- Care Team Providers Care Hair Boiler Operator Name Role Phone Walter Marquez MD Primary Care Physician [phone] [place] [facility] [place] [place] [id number] Date(s): 07/18/21 - 08/17/21 [facility] [address] [place] [address]- Attending Physician: Shauna Zeng Admitting Physician: AdmtrShauna [...]
--- OUTSIDE RECORDS SUMMARY | 2024-02-06 14:33 | XMS_ITS | Continuity of Care Document ---
Author Organization [facility] Address [address] [place] [address]- Care Team Providers Care Senior Agricultural Assistant Name Role Phone Jimmy OZUNA, Walter Day Primary Care Physician En[place] [facility] [place] Date(s): 08/06/22 - 09/05/22 [facility] [address] [place] [address]- [place] Allergies, Adverse Reactions, Alerts Substance Reaction [...] team information Care Team Personnel Name: Jimmy OZUNA, Walter Day Position: [facility] Outreach Member Role: PCP Address: Address: [address] [place] [address]- Care Team Related Persons Name: GURWINDER FALLON Address: [place] [address] Name: GURWINDER FALLON Address: [place] [address]
--- OUTSIDE RECORDS SUMMARY | 2024-02-06 14:33 | XMS_ITS | Continuity of Care Document ---
Author Organization [facility] Address [address] [place] [address]- Care Team Providers Care Division Sergeant Name Role Phone Jimmy OZUNA, Walter Day Primary Care Physician [phone] En[place] [facility] [place] Date(s): 09/20/20 - 10/27/20 [facility] [address] [place] [address]- Attending Physician: Louie López MD Admitting Physician: [...] Obesity(Confirmed) Active PCOS (polycystic ovarian syndrome)(Confirmed) Active Social History Social History Type Response Smoking Status Never smoker; Tobacc o user in household: No entered on: 12/30/16 Sex
--- OUTSIDE RECORDS SUMMARY | 2024-02-06 14:33 | XMS_ITS | Continuity of Care Document ---
Author Organization [facility] Address [address] [place] [address]- Care Team Providers Care Gun Perforator Loader Name Role Phone Jimmy OZUNA, Walter Day Primary Care Physician [place] [facility] [place] 10[place]01/21 - 10/31/21 [facility] [address] [place] [address]- Attending Physician: Veronika Tamayo RD Admitting Physician: [...]
--- OUTSIDE RECORDS SUMMARY | 2024-02-06 14:33 | XMS_ITS | Continuity of Care Document ---
Author Organization [facility] Address [address] [place] [address]- Care Team Providers Care Retail Clerk Name Role Phone Jimmy OZUNA, Wlater Day Primary Care Physician [phone] [facility] [place] Date(s): 09/13/19 - 09/20/19 [facility] [address] [place] [address] [facility] Attending Physician: Rene OZUNA, Louie Rivera Allergies, Adverse Reactions, Alerts No Known Medication [...] 16:13:00 EDT Start Date: 09/13/19 Status: Ordered Ortho Evra 1 patch, Topically, 0 Refills, Maintenance, 12/10/17 16:16:21 EDT Start Date: 12/10/17 Status: Ordered phentermine 15 mg oral capsule 1 capsule = 15 mg, By Mouth, Daily in AM, # 30 capsule, 2 Refills, Hard Stop 08/09/20 14:14:00 EDT,08/10/19 14:14:00 EDT, Capsule, [facility], 789.3, cm, 04/16/19 13:50:00 EST, Height, 135.6, kg, 04/16/19 13:50:00 EST, Dry Weight Start Date: 08/10/19 Stop Date: 08/09/20 Status: Ordered phentermine 15 mg oral capsule 1 capsule = 15 mg, By Mouth, Daily in AM, # 30 capsule, 5 Refills, Maintenance, 08/09/20 14:14:00 EDT, Capsule, [facility], 167.3, cm, 04/16/19 13:50:00 EST, Height, 135.6, kg, 04/16/19 13:50:00 EST, Dry Weight Start Date: 08/09/20 Status: Ordered Topamax 25 mg oral tablet 1 tablet = 25 mg, By Mouth, Daily, # 30 tablet, 5 Refills, Maintenance, 09/13/19 16:14:00 EDT, [facility], 167.3, cm, 04/16/19 13:50:00 EST, Height, 135.6, kg, 04/16/19 13:50:00 EST, Dry Weight Start Date: 09/13/19 Status: Ordered Tylenol 325 mg oral capsule [...]
--- OUTSIDE RECORDS SUMMARY | 2024-02-06 14:33 | XMS_ITS | Continuity of Care Document ---
Author Organization [facility] Address [address] [place] [address]- Care Team Providers Care Arterial Embalmer Name Role Phone Jimmy OZUNA, Walter Day Primary Care Physician [phone] [place] [facility] [place]s): 09/27/20 - 10/27/20 [facility] [address] [place] [address]- Attending Physician: Admtr, Ar8 Admitting Physician: Admtr, Ar8 Referring Physician: Admtr, Ar8 Allergies, Adverse Reactions, [...]
--- OUTSIDE RECORDS SUMMARY | 2024-02-06 14:33 | XMS_ITS | Continuity of Care Document ---
Author Organization [facility] Address [address] [place] [address]- Care Team Providers Care Coordinator Of Genetic Services Name Role Phone Walter Marquez MD Primary Care Physician [place] [facility] [place] [place] [id number] Date(s): 07/26/20 - 08/25/20 [facility] [address] [place] [address]- Attending Physician: Shauna Zeng Admitting Physician: Admtr, Ar8 Referring Physician: Admtr, [...]
--- OUTSIDE RECORDS SUMMARY | 2024-02-06 14:33 | XMS_ITS | Continuity of Care Document ---
Author Organization [facility] Address [address] [place] [address]- Care Team Providers Care Lean Coach Name Role Phone Jimmy OZUNA, Walter Day Primary Care Physician [place] [facility] [place]19/20 - 01/31/21 [facility] [address] [place] [address]- Attending Physician: Louie López MD Admitting Physician: [...]
--- OUTSIDE RECORDS SUMMARY | 2024-02-06 14:33 | XMS_ITS | Continuity of Care Document ---
Author Organization [facility] Address [address] [place] [address]- Care Team Providers Care Pmo Analyst Name Role Phone Walter Marquez MD Primary Care Physician [facility] [id number] Date(s): 04/16/19 - 04/26/19 [facility] [address] [place] [address]- [facility] Attending Physician: Shauna Zeng Admitting Physician: Admtr, Ar8 Referring Physician: Admtr, Ar8 Allergies, Adverse Reactions, Alerts No Known Medication [...]
--- OUTSIDE RECORDS SUMMARY | 2024-02-06 14:33 | XMS_ITS | Continuity of Care Document ---
Author Organization [facility] Address [address] [place] [address]- Care Team Providers Care Rug Setter Velvet Name Role Phone Jimmy OZUNA, Walter Day Primary Care Physician Encounter [facility] [place] Date(s): 03/02/21 - 04/01/[address] [address] Attending Physician: Shauna Zeng Admitting Physician: Shauna Zeng Referring Physician: AdmtrShauna Allergies, Adverse Reactions, Alerts Substance Reaction Severity [...]
--- OUTSIDE RECORDS SUMMARY | 2024-02-06 14:34 | XMS_ITS | Continuity of Care Document ---
Author Organization [facility] Address [address] [place] [address]- Care Team Providers Care Well Logging Captain Name Role Phone Walter Marquez MD Primary Care Physician Encounter [facility] ACCT R [id number] Date(s): 08/22/21 - 09/21/21 [facility] [address] [place] [address]- Attending Physician: Shauna Zeng Admitting Physician: AdmtrShauna [...]
--- OUTSIDE RECORDS SUMMARY | 2024-02-06 14:34 | XMS_ITS | Continuity of Care Document ---
Author Organization [facility] Address [address] [place] [address]- Care Team Providers Care Oracle Identity Management Consultant Name Role Phone Jimmy OZUNA, Walter Day Primary Care Physician Encounter [facility] [place] Date(s): 12/18/20 - 01/17/21 [facility] [address] [place] [address]- [place] Allergies, Adverse Reactions, Alerts Substance Reaction [...]
--- OUTSIDE RECORDS SUMMARY | 2024-02-06 14:34 | XMS_ITS | Continuity of Care Document ---
Author Organization [facility] Address [address] [place] [address]- Care Team Providers Care Associate Professor Of History Name Role Phone Jimmy OZUNA, Walter Day Primary Care Physician Encounter [facility] [place] Date(s): 09/13/19 - 10/13/19 [facility] [address] [place] [address]- [facility] Attending Physician: Shauna Zeng Admitting Physician: Shauna [...] Stop 08/09/20 14:14:00 EDT,08/10/19 14:14:00 EDT, Capsule, [facility], 167.3, cm, 04/16/19 13:50:00 EST, Height, 135.6, kg, 04/16/19 13:50:00 EST, Dry Weight Start Date: 08/10/19 Stop Date: 08/09/20 Status: Ordered phentermine 15 mg oral capsule 1 capsule = 15 mg, By Mouth, Daily in AM, # 30 capsule, 5 Refills, Maintenance, 08/09/20 14:14:00 EDT, Capsule, [facility], 167.3, cm, 04/16/19 13:50:00 EST, Height, 135.6, kg, 04/16/19 13:50:00 EST, Dry Weight Start Date: 08/09/20 Status: Ordered Topamax 25 mg oral tablet 1 tablet = 25 mg, By Mouth, Daily, # 30 tablet, 5 Refills, Maintenance, 09/13/19 16:14:00 EDT, [facility] [...]
--- OUTSIDE RECORDS SUMMARY | 2024-02-06 14:34 | XMS_ITS | Continuity of Care Document ---
Author Organization [facility] Address [address] [place] [address]- Care Team Providers Care Carbonizer Name Role Phone Walter Marquez MD Primary Care Physician Encounter [facility] Date(s): 07/18/22 - 08/17/[address] [address] Attending Physician: Shauna Zeng Admitting Physician: AdmShauna albert Referring Physician: Admtr, Ar8 Allergies, Adverse Reactions, [...] Personnel Name: Jimmy OZUNA, Walter Day Position: [facility] Outreach Member Role: PCP Address: Address: [address] [place] [address]- Care Team Related Persons Name: GURWINDER FALLON Address: home [address] [place] [address] Name: GURWINDER FALLON Address: [place] [address]
--- OUTSIDE RECORDS SUMMARY | 2024-02-06 14:34 | XMS_ITS | Continuity of Care Document ---
Author Organization [facility] Address [address] [place] [address]- Care Team Providers Care Truck Sales Manager Name Role Phone Jimmy OZUNA, Walter Day Primary Care Physician [phone] Encounter [facility] Date(s): 07/29/22 - 08/28/22 [facility] [address] [place] [address]- Attending Physician: Shauna Zeng Admitting Physician: AdmShauna [...] in household: No entered on: 12/30/16 Sex Laboratory * Event Display: Laboratory Result Scanned Authored Date: [id number] Patient Care team information Care Team Personnel Name: Jimmy OZUNA, Walter Day Position: [facility] Outreach Member Role: PCP Address: Address: [address] [place] [address] Care Team Related Persons Name: GURWINDER FALLON Address: home [address] [place] [address] Name: GURWINDER FALLON Address: [place] [address]
--- OUTSIDE RECORDS SUMMARY | 2024-02-06 14:34 | XMS_ITS | Continuity of Care Document ---
Author Organization [facility] Address [address] [place] [address]- Care Team Providers Care Disability Attorney Name Role Phone Jimmy OZUNA, Walter Day Primary Care Physician Encounter [facility] [place] Date(s): 06/12/22 - 07/12/22 [facility] [address] [place] [address]- [place] Allergies, Adverse Reactions, Alerts Substance Reaction [...] week, rotate injection sites, # 2 mL, 2 Refills, Maintenance, 05/30/22 15:08:00 EDT, Solution, [facility], Partial fill upon patient request if the prescription is for a schedule II opioid drug.... Start Date: 05/30/22 Status: Ordered vitamin E 400 iu oral [...] Date: 01/11/21 Stop Date: 02/10/21 Status: Ordered Wegovy (0.25 mg dose) subcutaneous solution See Instructions, 0.25 mg Subcutaneous Infusion weekly, # 4 each, 11 Refills, Maintenance, 06/07/2315:56:00 EDT, [facility], Partial fill upon patient request if the prescription is for a schedule II opioid drug., 167, cm, 05/29/22 11:19:00... Start Date: 06/06/22 Status: Ordered Problem List Condition Confirmation Course [...] Personnel Name: Jimmy OZUNA, Walter Day Position: [facility] Outreach Member Role: PCP Address: Address: [address] [place] [address]- Care Team Related Persons Name: GURWINDER FALLON Address: home [address] [place] [address] Name: GURWINDER FALLON Address: [place] [address] [place] [address]
--- OUTSIDE RECORDS SUMMARY | 2024-02-06 14:34 | XMS_ITS | Summary of Care ---
Author Organization [facility] Address [address] [place] [address] Care Team Providers Care Heat Reader Name Role Phone KENDY HERRERA MD Primary Care Physician Encounter [facility] [id number] Date(s): 02/02/21 - 02/01/21 [facility] [address] [place] [address] Attending Physician: ASHLEY MONTIEL MD Referring Physician: KENDY HERRERA MD Allergies, Adverse Reactions, Alerts Substance Reaction Severity Status steri-strips rash Active Adhesive Bandage rash Active Problem List Condition Effective Dates Status Health Status Inform ant Ankle pain(Confirmed) 1 Active Ankle swelling(Confirmed) 2 Active Knee pain(Confirmed) 3 Active Subluxation of patellofemora l joint(Confirmed) Active Unstable knee(Confirmed) 4 Active 1Added by QCC 2Added by QCC 3Added by Q[facility] 4Added by Q[facility]
--- OUTSIDE RECORDS SUMMARY | 2024-02-06 14:34 | XMS_ITS | Continuity of Care Document ---
Author Organization [facility] Address [address] [place] [address]- Care Team Providers Care Boot Liner Maker Name Role Phone Walter Marquez MD Primary Care Physician [phone] Encounter [facility] Date(s): 04/04/20 - 05/04/20 [facility] [address] [address] Attending Physician: Shauna Zeng Admitting Physician: AdmtrShanua Referring Physician: Admtr, Ar8 Allergies, Adverse Reactions, [...] 14:14:00 EDT, Capsule, [facility] 167.3, cm, 04/16/19 13:50:00 EST, Height, 135.6, [...]
--- OUTSIDE RECORDS SUMMARY | 2024-02-06 14:34 | XMS_ITS | Continuity of Care Document ---
Author Organization [facility] Address [address] [place] [address]- Care Team Providers Care Isotope Hydrologist Name Role Phone Jimmy OZUNA, Walter Day Primary Care Physician [place] [facility] [id number] Date(s): 05/29/21 - 09/21/21 [facility] [address] [place] [address]- Attending Physician: Veronika Tmaayo RD Admitting Physician: Veronika Tamayo RD Allergies, [...]
--- OUTSIDE RECORDS SUMMARY | 2024-02-06 14:34 | XMS_ITS | Summary of Care ---
Author Organization [facility] Address [address] [place] [address] Care Team Providers Care Straight Pin Making Machine Operator Name Role Phone KENDY HERRERA MD Primary Care Physician Encounter [facility] [id number] Date(s): 07/21/20 - 07/21/20 [facility] [address] [place] [address] Discharge Disposition: Discharge Attending Physician: ASHLEY MONTIEL MD Referring Physician: [...]
--- OUTSIDE RECORDS SUMMARY | 2024-02-06 14:34 | XMS_ITS | Continuity of Care Document ---
Author Organization [facility] Address [address] [place] [address]- Care Team Providers Care Blood Tester Name Role Phone Jimmy OZUNA, Walter Day Primary Care Physician Encounter [facility] Date(s): 07/30/22 - 08/29/22 [facility] [address] [place] [address] [place] Allergies, Adverse Reactions, Alerts Substance Reaction [...] 11 Refills, Maintenance, 07/29/22 11:09:00 EDT, Solution, [facility], Partial fill upon [...] Personnel Name: Jimmy OZUNA, Walter Day Position: [facility] Outreach Member Role: PCP Address: Address: [address] [place] [address]- Care Team Related Persons Name: GURWINDER FALLON Address: [place] [address] Name: GURWINDER FALLON Address: [place] [address]
--- OUTSIDE RECORDS SUMMARY | 2024-02-06 14:34 | XMS_ITS | Summary of Care ---
Author Organization [facility] Address [address] [place] [address] Care Team Providers Care Waiter Waitress Name Role Phone SHARON OZUNA, KENDY Day Primary Care Physician Encounter [facility] [id number] Date(s): 09/02/19 - 09/02/19 [facility] [address] [place] [address] [facility] Encounter Diagnosis Unspecified dislocation of right patella, subsequent encounter(Final) - Discharge Disposition: Home Attending Physician: DINESH OZUNA, ASHLEY Stauffer Referring Physician: REFERRING , SELF REFERRED/NO Allergies, Adverse Reactions, Alerts Substance Reaction Severity [...]
--- OUTSIDE RECORDS SUMMARY | 2024-02-06 14:34 | XMS_ITS | Continuity of Care Document ---
Author Organization [facility] Address [address] [place] [address]- Care Team Providers Care Cigarette Machine Operator Name Role Phone Walter Marquez MD Primary Care Physician [place] [facility] [place] Date(s[place] 01/12/21 - 02/11/[address] [address] Allergies, Adverse Reactions, Alerts Substance Reaction Severity [...]
--- OUTSIDE RECORDS SUMMARY | 2024-02-06 14:34 | XMS_ITS | Summary of Care ---
Author Organization [facility] Address [address] [place] [address] Care Team Providers Care Room Service Manager Name Role Phone KENDY HERRERA MD Primary Care Physician Encounter [facility] [id number] Date(s): 06/17/19 - 06/17/19 [facility] [address] [place] [address] [facility] Discharge Disposition: Discharge Attending Physician: ASHLEY MONTIEL MD Referring Physician: KENDY HERRERA MD Allergies, Adverse Reactions, Alerts No Known Allergies Medications acetaminophen 500 mg oral tablet Dose: 500 mg, PO, Q4hr, PRN Fever/Pain, Entered: 01/20/17 15:42:19 EST Start Date: 01/20/17 Stop Date: 02/04/17 Status: Discontinued Adderall 30 mg oral tablet PO, Refills: 0, Entered: 11/29/15 11:35:24 EDT Start Date: 11/29/15 Stop Date: 06/26/16 Status: Discontinued Adderall 5 mg oral tablet See Instructions, Special Instructions: 1 tab PO daily as needed in afternoon, Refills: 0, Entered:10/15/18 15:17:45 EDT Start Date: 10/15/18 Status: Ordered Adderall XR PO, DailyMorning, Refills: 0, Entered: 06/26/16 15:01:16 EDT Start Date: 06/26/16 Stop Date: 02/04/17 Status: Discontinued aspirin Entered: 12/30/17 9:37:06 EDT Start Date: 12/30/17 Stop Date: 04/10/18 Status: Discontinued aspirin 325 mg oral tablet Dose: 325 mg, Dose Amount: 1 tab, PO, daily, Dispense Quantity: 14 tab, Entered: 01/17/17 10:50:04 EDT Start Date: 01/17/17 Stop Date: 02/04/17 Status: Discontinued Ativan 0.5 mg oral tablet mg, tab, PO, TID, Entered: 12/18/16 15:55:05 EDT Start Date: 12/18/16 Stop Date: 02/04/17 Status: Discontinued Benadryl Entered: 12/30/17 9:39:02 EDT Start Date: 12/30/17 Stop Date: 04/10/18 Status: Discontinued Caltrate 600 + D PO, BID, Entered: 12/30/17 9:37:26 EDT Start Date: 12/30/17 Stop Date: 04/16/18 Status: Discontinued Commode Commode Special Instructions: Commode Dispense Quantity: 1 kit Stop: 01/30/17 23:59:00 EST See Instructions Start Date: 01/22/17 Stop Date: 01/30/17 Status: Completed Focalin PO, BID, Refills: 0, Entered: 12/18/16 15:54:48 EDT Start Date: 12/18/16 Stop Date: 02/04/17 Status: Discontinued Glucosamine Chondroitin PO, daily, Entered: 12/30/17 9:37:48 EDT Start Date: 12/30/17 Status: Ordered ibuprofen 600 mg oral tablet mg, tab, PO, Q6hr, Special Instructions: 400mg 2x day per patient chart, Entered: 12/18/16 15:54:58EDT Start Date: 12/18/16 Stop Date: 04/21/17 Status: Completed Juleber 0.15 mg-0.03 mg oral tablet Dose Amount: 1 tab, PO, daily, Entered: 11/29/15 11:35:16 EDT Start Date: 11/29/15 Stop Date: 06/26/16 Status: Discontinued Lidoderm 5% topical film Dose Amount: 1 patch, TOP, daily, Dispense Quantity: 30 patch, Refills: 1, Entered: 08/24/13 16:01:10 EDT, Therapy Maintenance Start Date: 08/24/13 Stop Date: 03/14/14 Status: Discontinued multi-vitamin multi-vitamin, Entered: 04/16/18 15:46:27 EST Start Date: 04/16/18 Status: Ordered multivitamin with fluoride Dose Amount: 1 tab, PO, daily, Entered: 07/31/12 8:00:13 EDT, Therapy Maintenance Start Date: 07/31/12 Stop Date: 03/14/14 Status: Discontinued naproxen 500 mg oral tablet Dose: 500 mg, Dose Amount: 1 tab, PO, BID, PRN Pain, Dispense Quantity: 60 tab, Refills: 1, Entered: 08/24/13 16:01:03 EDT, Therapy Maintenance Start Date: 08/24/13 Stop Date: 03/14/14 Status: Discontinued [place] 5 mg-325 mg oral tablet Dose Amount: 1 tab, PO, Q6hr, PRN pain, Special Instructions: 1 to 2 tabs po q 4-6 hrs prn pain (not to exceed 4000 mg acetaminophen per day), Dispense Quantity: 50 tab, Refills: 0, Entered: 136:41:27 EDT, Stop: 08/07/12 7:00:00 EDT, Therapy A... Start Date: 08/04/12 Stop Date: 08/07/12 Status: Completed ondansetron 4 mg oral tablet Dose: 4 mg, Dose Amount: 1 tab, PO, Q8hr, PRN nausea and vomiting, Dispense Quantity: 12 tab, Refills: 1, Entered: 08/04/12 6:41:49 EDT, Stop: 08/07/12 7:15:00 EDT, Therapy Acute Start Date: 08/04/12 Stop Date: 08/07/12 Status: Completed oxyCODONE 5 mg oral tablet See Instructions, Special Instructions: 1-2 tab PO Q4-6hr; patient may half fill rx if desired, Dispense Quantity: 50 tab, Refills: 0, Entered: 01/17/17 10:50:07 EDT, Stop: 02/03/17 10:50:00 EST Start Date: 01/17/17 Stop Date: 02/03/17 Status: Completed oxycodone 5 mg oral tablet Dose: 5 mg, Dose Amount: 1 tab, PO, Q4hr, PRN Pain, Dispense Quantity: 50 tab, Refills: 0, Entered:08/03/12 8:15:42 EDT, Therapy Maintenance Start Date: 08/03/12 Stop Date: 08/04/12 Status: Discontinued Tylenol Extra Strength PO, Q6hr, Entered: 12/30/17 9:38:50 EDT Start Date: 12/30/17 Stop Date: 04/16/18 Status: Discontinued Tylenol PM PO, Entered: 12/30/17 9:38:52 EDT Start Date: 12/30/17 Stop Date: 04/16/18 Status: Discontinued Valium 5 mg oral tablet Dose: 5 mg, Dose Amount: 1 tab, PO, Q6hr, PRN Spasm, Dispense Quantity: 24 tab, Entered: 01/17/17 10:50:11 EDT, Stop: 02/03/17 10:50:00 EST Start Date: 01/17/17 Stop Date: 02/03/17 Status: Completed Valium 5 mg oral tablet Dose: 5 mg, Dose Amount: 1 tab, PO, Q8hr, PRN muscle spasm, Dispense Quantity: 20 tab, Entered: 08/03/12 8:16:22 EDT, Therapy Maintenance Start Date: 08/03/12 Stop Date: 11/09/12 Status: Discontinued vitamin E PO, daily, Entered: 12/30/17 9:37:33 EDT Start Date: 12/30/17 Status: Ordered Vyvanse Dose: 30 mg, DailyMorning, Special Instructions: 50 mg oral capsule, Refills: 0, Entered: 12/30/17 9:36:47 EDT Start Date: 12/30/17 Status: Ordered Vyvanse 30 mg oral capsule Dose: 30 mg, Dose Amount: 1 cap, PO, DailyMorning, Special Instructions: 40mg per patient chart, Refills: 0, Entered: 01/15/17 9:16:07 EDT Start Date: 01/15/17 Stop Date: 04/21/17 Status: Completed Vyvanse 40 mg oral capsule mg, cap, PO, DailyMorning, Refills: 0, Entered: 04/21/17 15:07:29 EST Start Date: 04/21/17 Stop Date: 12/30/17 Status: Completed Wheelchair Wheelchair Special Instructions: Use As Directed; Patient Height 170cm Weight: 58kg; DX: Left knee surgery for patellar stabilization for 3 months Dispense Quantity: 1 EA Refills: 0 Stop: 12/26/16 23:59:00 EDT See Instructions Start Date: 12/18/16 Stop Date: 12/26/16 Status: Completed Xulane 150 mcg-35 mcg/24 hr transdermal film, extended release patch, TOP, Special Instructions: patch, Entered: 12/30/17 9:38:24 EDT Start Date: 12/30/17 Stop Date: 04/10/18 Status: Discontinued Zilretta 32 mg intra-articular injection, extended release Dose: 32 mg, Intra-articular, 1time, Dispense Quantity: 1 kit, Entered: 05/10/19 16:40:23 EST, 124.6 Start Date: 05/10/19 Status: Ordered Zofran 4 mg oral tablet Dose: 4 mg, Dose Amount: 1 tab, PO, Q8hr, PRN Nausea/Vomiting, Dispense Quantity: 10 tab, Refills: 1, Entered: 01/17/17 10:50:08 EDT Start Date: 01/17/17 Stop Date: 02/04/17 Status: Discontinued Zofran 4 mg oral tablet Dose: 4 mg, Dose Amount: 1 tab, PO, Q8hr, PRN nausea/vomiting, Dispense Quantity: 20 tab, Entered: 08/03/12 8:16:55 EDT, Therapy Maintenance Start Date: 08/03/12 Stop Date: 08/04/12 Status: Discontinued Problem List Condition Effective Dates Status Health Status Inform ant Ankle pain(Confirmed) 1 Active Ankle swelling(Confirmed) 2 Active Knee pain(Confirmed) 3 Active Subluxation of patellofemora l joint(Confirmed) Active Unstable knee(Confirmed) 4 Active 1Added by QCC 2Added by QCC 3Added by C 4Added by [facility]
--- OUTSIDE RECORDS SUMMARY | 2024-02-06 14:34 | XMS_ITS | Continuity of Care Document ---
Author Organization [facility] Address [address] [place] [address]- Care Team Providers Care Stereotyper Helper Name Role Phone Jimmy OZUNA, Walter Day Primary Care Physician [phone] [place] [facility] [place]): 09/28/19 - 11/18/19 [facility] [address] [place] [address] [place] Attending Physician: Louie López MD Admitting Physician: [...] 5 Refills, Maintenance, 08/09/20 14:14:00 EDT, Capsule, [facility], 167.3, cm, 04/16/19 13:50:00 EST, Height, 135.6, kg, 04/16/19 13:50:00 EST, Dry Weight Start Date: 08/09/20 Status: Ordered Probiotic Formula By Mouth, Daily, 0 Refills, Maintenance, 10/14/19 17:01:00 EDT Start Date: 10/14/19 Status: Ordered Topamax 50 mg oral tablet See Instructions, 1 1/2 tablet By Mouth once daily, # 45 each, 5 Refills, Maintenance, 10/14/19 17:01:00 EDT, [facility], 167.3, cm, 04/16/19 13:50:00 [...]
--- OUTSIDE RECORDS SUMMARY | 2024-02-06 14:34 | XMS_ITS | Continuity of Care Document ---
Author Organization [facility] Address [address] [place] [address]- Care Team Providers Care Online Activist Name Role Phone Jimmy OZUNA, Walter Day Primary Care Physician Encounter [facility] [place] Date(s): 08/10/19 - 08/17/19 [facility] [address] [place] [address] [facility] Attending Physician: Louie López MD Allergies, Adverse Reactions, Alerts No Known Medication Allergies Medications Ortho Evra 1 patch, Topically, 0 Refills, Maintenance, 12/10/17 16:16:21 EDT Start Date: 12/10/17 Status: Ordered phentermine 15 mg oral capsule 1 capsule = 15 mg, By Mouth, Daily in AM, # 30 capsule, 2 Refills, Maintenance, 08/10/19 14:14:00 EDT, Capsule, [email or web address], 167.3, cm, 04/16/19 13:50:00 EST, Height, 135.6, kg, 04/16/19 13:50:00 EST, Dry Weight Start Date: 08/10/19 Stop Date: 08/09/20 Status: Ordered Topamax 25 mg oral tablet 1 tablet = 25 mg, By Mouth, Daily, # 30 tablet, 2 Refills, Maintenance, 08/10/19 14:15:00 EDT, [facility], 167.3, cm, 04/16/19 13:50:00 EST, Height, 135.6, kg, 04/16/19 13:50:00 EST, Dry Weight Start Date: 08/10/19 Status: Ordered Tylenol 325 mg oral capsule [...]
--- OUTSIDE RECORDS SUMMARY | 2024-02-06 14:34 | XMS_ITS | Continuity of Care Document ---
Author Organization [facility] Address [address] [place] [address]- Care Team Providers Care Rubber Tubing Backer Name Role Phone Walter Marquez MD Primary Care Physician [phone] En[place] [facility] [place] [id number] Date(s): 05/29/22 - 06/28/22 [facility] [address] [place] [address]- Attending Physician: Shauna Zeng Admitting Physician: AdmtrShauna [...] 4 each, 11 Refills, Maintenance, 06/07/2315:56:00 EDT, [facility], Partial fill upon [...] Team Personnel Name: Walter Marquez MD Position: [facility] Outreach Member Role: PCP Address: Address: [address] [place] [address]- [place] Care Team Related Persons Name: GURWINDER FALLON Address: home [address] [place] [address] Name: GURWINDER FALLON Address: home [address] [place] [address]
--- OUTSIDE RECORDS SUMMARY | 2024-02-06 14:34 | XMS_ITS | Continuity of Care Document ---
Author Organization [facility] Address [address] [place] [address]- Care Team Providers Care Rail Track Maintainer Name Role Phone Jimmy OZUNA, Walter Day Primary Care Physician Encounter [facility] [place] Date(s): 04/25/21 - 06/29/21 [facility] [address] [place] [address]- Attending Physician: Louie López MD Admitting Physician: [...]
--- OUTSIDE RECORDS SUMMARY | 2024-02-06 14:34 | XMS_ITS | Continuity of Care Document ---
Author Organization [facility] Address [address] [place] [address]- Care Team Providers Care Special Forces Warrant Officer Name Role Phone Jimmy OZUNA, Walter Day Primary Care Physician Encounter [facility] [place] Date(s): 03/14/21 - 04/26/21 [facility] [address] [place] [address]- Attending Physician: Louie López MD Admitting Physician: [...]
--- OUTSIDE RECORDS SUMMARY | 2024-02-06 14:34 | XMS_ITS | Continuity of Care Document ---
Author Organization [facility] Address [address] [place] [address]- Care Team Providers Care Dial Mounter Name Role Phone Walter Marquez MD Primary Care Physician [place] [facility] [place](s[place] 08/08/21 - 03/21/[address] [address]- Attending Physician: Betzy Bella MD Admitting Physician: [...] Team Personnel Name: Walter Marquez MD Position: [facility] Outreach Member Role: PCP Address: Address: [address] [place] [address]- Care Team Related Persons Name: GURWINDER FALLON Address: home [address] [place] [address] Name: GURWINDER FALLON Address: [place] [address] [place] [address]
--- OUTSIDE RECORDS SUMMARY | 2024-02-06 14:34 | XMS_ITS | Summary of Care ---
Author Organization [facility] Address [address] [place] [address] Care Team Providers Care Nailhead Puncher Name Role Phone KENDY HERRERA MD Primary Care Physician Encounter [facility] [id number] Date(s): 09/30/19 - 09/30/19 [facility] [address] [place] [address] [facility] Discharge Disposition: Discharge Attending Physician: HAZEL POLLACK, EBONI JERRY Referring Physician: REFERRING , SELF REFERRED/NO Allergies, Adverse Reactions, Alerts Substance Reaction Severity Status steri-strips rash Active Adhesive Bandage rash Active Medications Zilretta 32 mg intra-articular injection, extended release Dose: 32 mg, Intra-articular, 1time, Special Instructions: to be administered at MD office, Dispense Quantity: 1 EA, Entered: 09/30/19 17:12:00 EDT Start Date: 09/30/19 Status: Ordered Problem List Condition Effective Dates Status Health Status Inform ant Ankle pain(Confirmed) 1 Active Ankle swelling(Confirmed) 2 Active Knee pain(Confirmed) 3 Active Subluxation of patellofemora l joint(Confirmed) Active Unstable knee(Confirmed) 4 Active 1Added by QCC 2Added by [facility] 3Added by [facility] 4Added by [facility]
--- OUTSIDE RECORDS SUMMARY | 2024-02-06 14:34 | XMS_ITS | Summary of Care ---
Author Organization [facility] Address [address] [place] [address] Care Team Providers Care As400 Operator Name Role Phone SHARON OZUNA, KENDY Day Primary Care Physician Encounter [facility]CSN [id number] Date(s): 08/05/19 - 08/05/19 [facility] [address] [place] [address] [facility] Discharge Disposition: Discharge Attending Physician: ASHLEY MONTIEL MD Referring Physician: REFERRING , SELF REFERRED/NO Allergies, Adverse Reactions, Alerts Substance Reaction Severity Status steri-strips rash Active Adhesive Bandage rash Active Medications acetaminophen 500 mg oral tablet Dose: [...] Date: 12/18/16 Stop Date: 04/21/17 Status: Completed In home Physical Therpay In home Physical Therpay Special Instructions: WBAT. ROM as tolerated, quad/HS stretching/strengthening as tolerated, no impact activities. PRE SLR. 1-2x per week x 6-8wks. Last clinic visit 06/17/19 Rx Indication: R patella dislocation Dispense Joe... Start Date: 06/28/19 Stop Date: 07/06/19 Status: Completed Juleber 0.15 mg-0.03 mg oral [...] Date: 08/24/13 Stop Date: 03/14/14 Status: Discontinued [place] 5 mg-325 mg oral tablet Dose Amount: [...] by QCC 3Added by QCC 4Added by [facility]
--- OUTSIDE RECORDS SUMMARY | 2024-02-06 14:34 | XMS_ITS | Continuity of Care Document ---
Author Organization [facility] Pediatric E ndocrinology Address [address] [place] [address]- Care Team Providers Care Steam Locomotive Firer/Fireman Name Role Phone Jimmy OZUNA, Walter Day Primary Care Physician [phone] Encounter [facility] [place] Date(s): 05/31/22 - 06/30/22 [facility] Pediatric Endocrinology [address] [place] [address] [place] Allergies, Adverse Reactions, Alerts Substance Reaction [...] Personnel Name: Jimmy OZUNA, Walter Day Position: [facility] Outreach Member Role: PCP Address: Address: [address] [place] [address]- Care Team Related Persons Name: GURWINDER FALLON Address: home [address] [place] [address] Name: GURWINDER FALLON Address: [place] [address] [place] [address]
--- OUTSIDE RECORDS SUMMARY | 2024-02-06 14:34 | XMS_ITS | Continuity of Care Document ---
Author Organization [facility] Address [address] [place] [address]- Care Team Providers Care Urban Sociologist Name Role Phone Jimmy OZUNA, Walter Day Primary Care Physician [place] [facility] [place]20 - 07/26/20 [facility] [address] [place] [address] Attending Physician: Shauna Zeng Admitting Physician: Shauna [...]
--- OUTSIDE RECORDS SUMMARY | 2024-02-06 14:34 | XMS_ITS | Continuity of Care Document ---
Author Organization [facility] E ndocrinology Address [address] [place] [address]- Care Team Providers Care Machine Puller Over Name Role Phone Walter Marquez MD Primary Care Physician En[place] [facility] [place] Date(s): 01/25/20 - 03/05/20 [facility] Endocrinology [address] [place] [id number] Attending Physician: Louie López MD Admitting Physician: [...] 14:14:00 EDT, Capsule, [facility], 413.3, cm, 04/16/19 13:50:00 EST, Height, 135.6, kg, 04/16/19 13:50:00 EST, Dry Weight Start Date: 08/09/20 Status: Ordered Probiotic Formula By Mouth, Daily, 0 Refills, Maintenance, 10/14/19 17:01:00 EDT Start Date: 10/14/19 Status: Ordered Topamax 50 mg oral tablet See Instructions, 1 1/2 tablet By Mouth once daily, # 45 each, 5 Refills, Maintenance, 10/14/19 17:01:00 EDT, [facility] # [facility], 167.3, cm, 04/16/19 13:50:00 [...]
--- OUTSIDE RECORDS SUMMARY | 2024-02-06 14:34 | XMS_ITS | Continuity of Care Document ---
Author Organization [facility] Address [address] [place] [address]- Care Team Providers Care Natural Gas Plant Supervisor Name Role Phone Walter Marquez MD Primary Care Physician [place] [facility] [id number] Date(s): 02/18/22 - 03/20/22 [facility] [address] [place] [address]- Attending Physician: Shauna Zeng Admitting Physician: AdmtrShauna [...] Personnel Name: Jimmy OZUNA, Walter Day Position: [facility] Outreach Member Role: PCP Address: Address: [address] [place] [address]- Care Team Related Persons Name: GURWINDER FALLON Address: home [address] [place] [address] Name: GURWINDER FALLON Address: [place] [address]
--- OUTSIDE RECORDS SUMMARY | 2024-02-06 14:34 | XMS_ITS | Continuity of Care Document ---
Author Organization [facility] Pediatric E ndocrinology Address [address] [place] [address]- Care Team Providers Care Supervisor Cigarette Making Department Name Role Phone Jimmy OZUNA, Walter Day Primary Care Physician En[place] [facility] [place] Date(s): 03/13/20 - 06/18/20 [facility] Pediatric Endocrinology [address] [place] [address] Attending Physician: Louie López MD Admitting Physician: [...]
--- OUTSIDE RECORDS SUMMARY | 2024-02-06 14:34 | XMS_ITS | Continuity of Care Document ---
Author Organization [facility] Address [address] [place] [address]- Care Team Providers Care Filenet Admin Name Role Phone Jimmy OZUNA, Walter Day Primary Care Physician Encounter [facility] [place] Date(s): 10/16/20 - 11/15/20 [facility] [address] [place] [address] Allergies, Adverse Reactions, Alerts Substance Reaction Severity [...]
--- OUTSIDE RECORDS SUMMARY | 2024-02-06 14:34 | XMS_ITS | Summary of Care ---
Author Organization [facility] Address [address] [place] [address] Care Team Providers Care Industry Segment Specialist Name Role Phone SHARON OZUNA, KENDY Day Primary Care Physician Encounter [facility] [id number] Date(s): 12/02/19 - 12/02/19 [facility] [address] [place] [address] [facility] Encounter Diagnosis Chondromalacia, left knee(Final) - Discharge Disposition: Home Attending Physician: DINESH [...]
--- OUTSIDE RECORDS SUMMARY | 2024-02-06 14:34 | XMS_ITS | Continuity of Care Document ---
Author Organization [facility] Pediatric E ndocrinology Address [address] [place] [address]- Care Team Providers Care Exercise Equipment Specialist Name Role Phone Jimmy OZUNA, Walter Day Primary Care Physician [phone] Encounter [facility] [place] Date(s): 06/04/22 - 07/04/22 [facility] Pediatric Endocrinology [address] [place] [address] [place] Allergies, Adverse Reactions, Alerts Substance Reaction [...] Personnel Name: Jimmy OZUNA, Walter Day Position: [facility] Outreach Member Role: PCP Address: Address: [address] [place] [address]- Care Team Related Persons Name: GURWINDER FALLON Address: home [address] [place] [address] Name: GURWINDER FALLON Address: [place] [address] [place] [address]
--- OUTSIDE RECORDS SUMMARY | 2024-02-06 14:34 | XMS_ITS | Continuity of Care Document ---
Author Organization [facility] Pediatric E ndocrinology Address [address] [place] [address]- Care Team Providers Care Senior Mortgage Underwriter Name Role Phone Jimmy OZUNA, Walter Day Primary Care Physician [phone] Encounter [facility] Date(s): 02/03/20 - 03/04/20 [facility] Pediatric Endocrinology [address] [place] [address] Allergies, Adverse Reactions, [...]
--- OUTSIDE RECORDS SUMMARY | 2024-02-06 14:34 | XMS_ITS | Continuity of Care Document ---
Author Organization [facility] Pediatric E ndocrinology Address [address] [place] [address]- Care Team Providers Care Character Artist Name Role Phone Jimmy OZUNA, Walter Day Primary Care Physician Encounter [facility] [place] Date(s): 06/25/19 - 07/05/19 [facility] Pediatric Endocrinology [address] [place] [address] [facility] Attending Physician: Shauna Zeng Admitting Physician: Shauna [...]
--- OUTSIDE RECORDS SUMMARY | 2024-02-06 14:34 | XMS_ITS | Continuity of Care Document ---
Author Organization [facility] Address [address] [place] [address]- Care Team Providers Care Head Of Marketing Name Role Phone Walter Marquez MD Primary Care Physician [phone] [place] [facility] [place] 12/01/19 - 01/14/20 [facility] [address] [place] [address]- [place] Attending Physician: Louie López MD Admitting [...] each, 5 Refills, Maintenance, 10/14/19 17:01:00 EDT, [facility], 167.3, cm, 04/16/19 [...]
--- OUTSIDE RECORDS SUMMARY | 2024-02-06 14:34 | XMS_ITS | Continuity of Care Document ---
Author Organization [facility] Pediatric E ndocrinology Address [address] [place] [address]- Care Team Providers Care Education Reviewer Name Role Phone Walter Marquez MD Primary Care Physician [place] [facility] [place](s): 12/06/20 - 01/05/21 [facility] Pediatric Endocrinology [address] [place] [address] [place] Allergies, Adverse Reactions, Alerts Substance Reaction [...]
--- OUTSIDE RECORDS SUMMARY | 2024-02-06 14:34 | XMS_ITS | Continuity of Care Document ---
Author Organization [facility] Address [address] [place] [address]- Care Team Providers Care Charge Entry Specialist Name Role Phone Jimmy OZUNA, Walter Day Primary Care Physician Encounter [facility] [place] Date(s): 03/21/20 - 04/20/20 [facility] [address] [place] [address]- Attending Physician: Shauna Zeng Admitting Physician: Shauna [...]
--- OUTSIDE RECORDS SUMMARY | 2024-02-06 14:34 | XMS_ITS | Continuity of Care Document ---
Author Organization [facility] Address [address] [place] [address]- Care Team Providers Care Analyzer Sales Name Role Phone Jimmy OZUNA, Walter Day Primary Care Physician [place] [facility] [place] 09/23/19 - 09/30/19 [facility] Gastroenterology [address] [place] [address] [facility] Attending Physician: Sheng OZUNA, Bill Dominguez Allergies, Adverse Reactions, Alerts No Known Medication [...] 16:13:00 EDT Start Date: 09/13/19 Status: Ordered metroNIDAZOLE 500 mg oral tablet 1 tablet = 500 mg, By Mouth, Every 8 hours, for 14 days, # 42 tablet, 0 Refills, Acute 10/07/19 10:34:00 EDT, 09/23/19 10:34:00 EDT, Tablet, [facility], 167.3, cm, 04/16/19 13:50:00 EST, Height, 135.6, kg, 04/16/19 13:50:00 EST, Dry Weight Start Date: 09/23/19 Stop Date: 10/07/19 Status: Ordered Ortho Evra 1 patch, Topically, 0 Refills, Maintenance, 12/10/17 16:16:21 EDT Start Date: 12/10/17 Status: Ordered phentermine 15 mg oral capsule 1 capsule = 15 mg, By Mouth, Daily in AM, # 30 capsule, 2 Refills, Hard Stop 08/09/20 14:14:00 EDT,08/10/19 14:14:00 EDT, Capsule, [facility] # [facility], 167.3, cm, 04/16/19 13:50:00 EST, Height, 135.6, kg, 04/16/19 13:50:00 EST, Dry Weight Start Date: 08/10/19 Stop Date: 08/09/20 Status: Ordered phentermine 15 mg oral capsule 1 capsule = 15 mg, By Mouth, Daily in AM, # 30 capsule, 5 Refills, Maintenance, 08/09/20 14:14:00 EDT, Capsule, [facility] # [facility], 167.3, cm, 04/16/19 13:50:00 EST, Height, 135.6, kg, 04/16/19 13:50:00 EST, Dry Weight Start Date: 08/09/20 Status: Ordered Topamax 25 mg oral tablet 1 tablet = 25 mg, By Mouth, Daily, # 30 tablet, 5 Refills, Maintenance, 09/13/19 16:14:00 EDT, [facility] # [facility], 167.3, cm, 04/16/19 13:50:00 [...]
--- OUTSIDE RECORDS SUMMARY | 2024-02-06 14:34 | XMS_ITS | Continuity of Care Document ---
Author Organization [facility] Address [address] [place] [address]- Care Team Providers Care Shear Operator Helper Name Role Phone Jimmy OZUNA, Walter Day Primary Care Physician [place] [facility] [place] R [id number] Date(s): 01/15/21 - 03/02/21 [facility] [address] [place] [address]- Attending Physician: Louie López MD Admitting Physician: [...]
--- OUTSIDE RECORDS SUMMARY | 2024-02-06 14:34 | XMS_ITS | Continuity of Care Document ---
Author Organization [facility] Pediatric E ndocrinology Address [address] [place] [address]- Care Team Providers Care Biofuels Plant Manager Name Role Phone Walter Marquez MD Primary Care Physician [phone] [place] [facility] [place](s): 11/06/20 - 12/06/20 [facility] Pediatric Endocrinology [address] [place] [address]- [place] Allergies, Adverse Reactions, Alerts Substance Reaction [...]
--- OUTSIDE RECORDS SUMMARY | 2024-02-06 14:34 | XMS_ITS | Continuity of Care Document ---
Author Organization [facility] Pediatric E ndocrinology Address [address] [place] [address]- Care Team Providers Care Electric Organ Assembler Name Role Phone Jimmy OZUNA, Walter Day Primary Care Physician Encounter [facility] Date(s): 11/30/19 - 12/30/19 [facility] Pediatric Endocrinology [address] [place] [address] [facility] Allergies, Adverse Reactions, Alerts No Known Medication [...] 5 Refills, Maintenance, 08/09/20 14:14:00 EDT, Capsule, [facility] # [facility], 167.3, cm, 04/16/19 13:50:00 EST, Height, 135.6, kg, 04/16/19 13:50:00 EST, Dry Weight Start Date: 08/09/20 Status: Ordered Probiotic Formula By Mouth, Daily, 0 Refills, Maintenance, 10/14/19 17:01:00 EDT Start Date: 10/14/19 Status: Ordered Topamax 50 mg oral tablet See Instructions, 1 1/2 tablet By Mouth once daily, # 45 each, 5 Refills, Maintenance, 10/14/19 17:01:00 EDT, [facility] # 23, 167.3, cm, [...]
--- OUTSIDE RECORDS SUMMARY | 2024-02-06 14:34 | XMS_ITS | Continuity of Care Document ---
Author Organization [facility] Address [address] [place] [address]- Care Team Providers Care Separator Operator Name Role Phone Jimmy OZUNA, Walter Day Primary Care Physician En[place] [facility] [place] Date(s): 03/07/21 - 05/11/21 [facility] [address] [place] [address]- Attending Physician: Loiue López MD Admitting Physician: Louie López MD [...]
--- OUTSIDE RECORDS SUMMARY | 2024-02-06 14:35 | XMS_ITS | Summary of Care ---
Author Organization [facility] Address [address] [place] [address]- Care Team Providers Care Contact Lens Inspector Name Role Phone SHARON OZUNA, KENDY Day Primary Care Physician Encounter [facility] [id number] Date(s): 08/22/19 - 08/22/[address] [address]- [facility] Discharge Disposition: Discharge Attending Physician: ASHLEY MONTIEL MD Referring Physician: KOBE OZUNA, RICHA Esposito Allergies, Adverse Reactions, Alerts Substance Reaction Severity [...]
--- OUTSIDE RECORDS SUMMARY | 2024-02-06 14:35 | XMS_ITS | Summary of Care ---
Author Organization [facility] Address [address] [place] [address]- Care Team Providers Care Instructor Programmable Controllers Name Role Phone KENDY HERRERA MD Primary Care Physician Encounter [facility] [id number] Date(s): 08/23/19 - 08/24/[address] [address]- [facility] Encounter Diagnosis Instability of patellofemoral joint(Discharge Diagnosis) - 08/23/19 Discharge Disposition: Home Attending Physician: ASHLEY MONTIEL MD Admitting Physician: ASHLEY MONTIEL MD Referring Physician: KENDY HERRERA MD Allergies, Adverse Reactions, Alerts Substance Reaction Severity Status steri-strips rash Active Adhesive Bandage rash Active Medications acetaminophen 325 mg oral tablet Dose: 650 mg, Dose Amount: 2 tab, PO, Q4hr, PRN Pain: Anticip/Mild/Mod (Score 0- 6), Entered: 08/23/19 10:41:00 EDT Start Date: 08/23/19 Status: Ordered aspirin 325 mg oral tablet Dose: 325 mg, Dose Amount: 1 tab, PO, daily, Dispense Quantity: 14 tab, Entered: 08/23/19 6:37:00 EDT Start Date: 08/23/19 Status: Ordered oxyCODONE 5 mg oral tablet Dose: 5 mg, Dose Amount: 1 tab, PO, Q4hr, PRN Pain: Moderate/Severe (Score 4- 10), Dispense Quantity: 30 tab, Refills: 0, Entered: 08/23/19 6:37:00 EDT, Stop: 08/30/19 6:37:00 EDT Start Date: 08/23/19 Stop Date: 08/30/19 Status: Ordered phentermine 15 mg oral capsule mg, cap, PO, DailyMorning, Entered: 08/17/19 16:36:00 EDT Start Date: 08/17/19 Status: Ordered topiramate 25 mg oral capsule Dose: 25 mg, Dose Amount: 1 cap, PO, daily, Dispense Quantity: 30 cap, Refills: 5, Entered: 08/17/19 16:36:00 EDT Start Date: 08/17/19 Status: Ordered Valium 2 mg oral tablet Dose: 2 mg, Dose Amount: 1 tab, PO, TID, PRN Spasm, Dispense Quantity: 24 tab, Entered: 08/23/19 6:37:00 EDT, Stop: 08/30/19 6:37:00 EDT Start Date: 08/23/19 Stop Date: 08/30/19 Status: Ordered Zofran 4 mg oral tablet Dose: 4 mg, Dose Amount: 1 tab, PO, Q8hr, PRN nausea, Dispense Quantity: 10 tab, Entered: 08/23/19 6:37:00 EDT Start Date: 08/23/19 Status: Ordered Problem List Condition Effective Dates Status Health Status Inform ant Ankle pain(Confirmed) 1 Active Ankle swelling(Confirmed) 2 Active Knee pain(Confirmed) 3 Active Subluxation of patellofemora l joint(Confirmed) Active Unstable knee(Confirmed) 4 Active 1Added by QCC 2Added by QCC 3Added by QCC 4Added by QCC
--- OUTSIDE RECORDS SUMMARY | 2024-02-06 14:35 | XMS_ITS | Summary of Care ---
Author Organization [facility] Address [address] [place] [address] Care Team Providers Care Laser Beam Color Scanner Operator Name Role Phone KENDY HERRERA MD Primary Care Physician [phone] Encounter [facility] [id number] Date(s): 04/06/21 - 04/03/21 [facility] [address] [place] [address] Attending Physician: ASHLEY MONTIEL MD Referring Physician: [...]
--- OUTSIDE RECORDS SUMMARY | 2024-02-06 14:35 | XMS_ITS | Summary of Care ---
Author Organization [facility] Address [address] [place] [address]- Care Team Providers Care Sleep Scientist Name Role Phone SHARON OZUNA, KENDY Day Primary Care Physician Encounter [facility] [id number] Date(s): 12/24/19 - 12/24/[address] [address]- [facility] Discharge Disposition: Discharge Attending Physician: ASHLEY MONTIEL MD Referring Physician: ASHLEY MONTIEL MD Allergies, Adverse Reactions, Alerts Substance Reaction [...]
--- OUTSIDE RECORDS SUMMARY | 2024-02-06 14:35 | XMS_ITS | Summary of Care ---
Author Organization [facility] Address [address] [place] [address] Care Team Providers Care Signal Supervisor Name Role Phone KENDY HERRERA MD Primary Care Physician Encounter [facility] [id number] Date(s): 12/24/19 - 12/24/19 [facility] [address] [place] [address] [facility] Discharge Disposition: Discharge Attending Physician: BRYCE BOWENS PA-C Referring Physician: REFERRING , SELF REFERRED/NO Allergies, Adverse Reactions, Alerts Substance Reaction Severity Status steri-strips rash Active Adhesive Bandage rash Active Medications Supartz FX 10 mg/mL intra-articular solution See Instructions, Special Instructions: 1 injection a week for 3 weeks bilateral knees Intra-articular, Dispense Quantity: 6 EA, Refills: 0, Entered: 12/24/19 12:24:00 EDT, Stop: 03/25/20 12:25:00 EST Start Date: 12/24/19 Stop Date: 03/25/20 Status: Ordered Supartz FX 10 mg/mL intra-articular solution See Instructions, Special Instructions: 1 injection a week for 3 weeks bilateral knees Intra-articular, Dispense Quantity: 6 EA, Entered: 12/24/19 14:30:00 EDT, Stop: 03/25/20 14:30:00 EST Start Date: 12/24/19 Stop Date: 03/25/20 Status: Ordered Problem List Condition Effective Dates Status Health Status Inform ant Ankle pain(Confirmed) 1 Active Ankle swelling(Confirmed) 2 Active Knee pain(Confirmed) 3 Active Subluxation of patellofemora l joint(Confirmed) Active Unstable knee(Confirmed) 4 Active 1Added by QCC 2Added by QCC 3Added by QCC 4Added by Q[facility]
--- OUTSIDE RECORDS SUMMARY | 2024-02-06 14:35 | XMS_ITS | Summary of Care ---
Author Organization [facility] Address [address] [place] [address] Care Team Providers Care Fashion Journalist Name Role Phone SHARON OZUNA, KENDY Day Primary Care Physician [phone] Encounter [facility] [id number] Date(s): 09/02/19 - 09/02/19 [facility] [address] [place] [address] [facility] Attending Physician: ASHLEY MONTIEL MD Referring Physician: [...] by QCC 3Added by QCC 4Added by C
--- OUTSIDE RECORDS SUMMARY | 2024-02-06 14:35 | XMS_ITS | Summary of Care ---
Author Organization [facility] Address [address] [place] [address]- Care Team Providers Care Integrated Pest Management Technician Name Role Phone KENDY HERRERA MD Primary Care Physician Encounter [facility] [id number] Date(s): 10/19/19 - 10/19/[address] [address]- [facility] Encounter Diagnosis Other instability, left knee(Final) - Chondromalacia, left knee(Final) - Discharge Disposition: Discharge Attending Physician: ANURADHA CELESTE MD Referring Physician: KENDY HERRERA MD Allergies, [...]
--- OUTSIDE RECORDS SUMMARY | 2024-02-06 14:35 | XMS_ITS | Summary of Care ---
Author Organization [facility] Address [address] [place] [address] Care Team Providers Care Hotel Maid Name Role Phone KENDY HERRERA MD Primary Care Physician Encounter [facility] [id number] Date(s): 10/24/20 - 10/24/20 [facility] [address] [place] [address] Discharge Disposition: Discharge Attending Physician: ASHLEY MONTIEL MD Referring Physician: KENDY HERRERA MD Allergies, Adverse Reactions, Alerts Substance Reaction Severity Status steri-strips rash Active Adhesive Bandage rash Active Medications Normatec Normatec Special Instructions: Use per instructions for lymphedema of Right lower leg. Dispense Quantity: 1 EA Stop: 11/01/20 23:59:00 EDT See Instructions Start Date: 10/24/20 Stop Date: 11/01/20 Status: Ordered Problem List Condition Effective Dates Status Health Status Inform ant Ankle pain(Confirmed) 1 Active Ankle swelling(Confirmed) 2 Active Knee pain(Confirmed) 3 Active Subluxation of patellofemora l joint(Confirmed) Active Unstable knee(Confirmed) 4 Active 1Added by QCC 2Added by QCC 3Added by QCC 4Added by C
== END 2024-02-06 09:28 | disposition home or self-care (01) | DRG 403 ==
LOC: HO.SSSA 11:05 → HO.S3 11:12
PROVIDERS: Physician Assistant Surgical; Admitting Provider Surgery; PCP Physician Assistant; Visit Provider Surgery
PROC: 0DB64Z3 Excision of Stomach, Percutaneous Endoscopic Approach, Vertical (ICD-10-PCS; CPT 43845; principal; 2024-02-05 07:30)
DX: E66.01 Morbid (severe) obesity due to excess calories (principal); K74.00 Hepatic fibrosis, unspecified; Q43.3 Congenital malformations of intestinal fixation; E28.2 Polycystic ovarian syndrome; K76.0 Fatty (change of) liver, not elsewhere classified; Z68.41 Body mass index [BMI] 40.0-44.9, adult; F90.9 Attention-deficit hyperactivity disorder, unspecified type; F41.9 Anxiety disorder, unspecified; G47.00 Insomnia, unspecified; K21.9 Gastro-esophageal reflux disease without esophagitis; K20.90 Esophagitis, unspecified without bleeding; Z87.891 Personal history of nicotine dependence; Z79.890 Hormone replacement therapy; Z79.899 Other long term (current) drug therapy
CPT/HCPCS: 36415; 80048; 80053; 80061; 81025; 83036; 83525; 84443; 85014; 85018; 85025; 85610; 85730; 86140; 86850; 86900; 86901; 88304; 88305; 88307; 88342; A4649; C9088; C9145; J0131; J0690; J1100; J1171; J1630; J2003; J2250; J2371; J2405; J2704; J2795; J3010; J7120

== ENCOUNTER → 2024-02-05 06:16 | Outpatient (BNV) | payer MEDICAID, SELFPAY | PROVIDERS: Admitting Provider Surgery; Visit Provider Surgery | DX: E66.01 Morbid (severe) obesity due to excess calories (principal); K76.0 Fatty (change of) liver, not elsewhere classified; G47.00 Insomnia, unspecified; E28.2 Polycystic ovarian syndrome; E03.9 Hypothyroidism, unspecified; F90.9 Attention-deficit hyperactivity disorder, unspecified type; F41.9 Anxiety disorder, unspecified; K21.9 Gastro-esophageal reflux disease without esophagitis; K20.90 Esophagitis, unspecified without bleeding | CPT/HCPCS: 43659; 43775; 99024; 99499 ==

== ENCOUNTER 2024-02-11 12:55 | Outpatient (AMB) | payer MEDICAID, SELFPAY ==
--- NOTE | 2024-02-11 12:59 | MHC.OFFVISWM ---
VS Expanded 02/11/24 13:23 BP 133/40 L Blood Pressure Location Rt brachial Blood Pressure Position Sitting Pulse 80 Pulse Source Pulse Oximeter Temp 96.2 F L Temperature Source Temporal Artery Scan Pulse Oximetry 97 Oxygen Delivery Method Room Air Height 5 ft 6 in Weight 258 lb 12.8 oz BMI 41.8 Body Fat % 46.8 Body Fat Mass 121.0 Fat Free Mass 137.6 Visceral Fat Rating 11.0 Body Water % 38.4 Body Water Mass 99.2 Muscle Mass/Score 130.8 Basal Metabolic Rate/Score 2,005 Intake Visit Reasons: (OV) PO LSG 02/05/24 Allergies adhesive tape Allergy (Mild, Verified 02/11/24 13:25) Rash lactose Adverse Reaction (Intermediate, Verified 02/11/24 13:25) Gastrointestinal Upset HPI Comments Details: Patient is a pleasant 24-year-old female returns to the office today 6 days post sleeve gastrectomy performed on 02/05/2024. Tolerating 3 celebrate 4 in 1 shakes with 1 scoop each in water and proximally 30 oz of fluids. She has moved her bowels. Denies any significant pain. [facility] Medical History (Updated 02/07/24 @ 00:03 by John Jaeger) GERD (gastroesophageal reflux disease) Joint pain Back pain Thyroid disease Depression Steatosis, liver Insomnia PCOS (polycystic ovarian syndrome) Anxiety ADHD Morbid obesity Surgical History H/O wisdom tooth extraction History of esophagogastroduodenoscopy (EGD) History of ankle surgery Hx of knee surgery Family History Mother Mental health disorder Addiction Father Mental health disorder Addiction Sister Obesity Mental health disorder Sister No problems noted. Social History (Updated 09/12/23 @ 09:43 by Mitzy Kaye CMA) Household Members: Significant Other Housing: Apartment Are you a primary career counselor to a significant other at home: No Do you presently have visiting nurse or other home services: No Alcohol intake: current Alcohol intake frequency: a few times a month Patient Tobacco Use Status: Former Tobacco user Years Smoked: 4 service: No Physical Exam GI Inspection: Yes incision (Clean, dry, intact. No Steri-Strips due to allergic reaction.) Assessment & Plan Assessment & Plan (1) S/P laparoscopic sleeve gastrectomy: Code(s): Z98.84 - Bariatric surgery status Category: Surgical Plan: POD 6 s/p LSG on 02/05/[address] Castro Weight loss prior to surgery was 54.8 pounds or 16.2 % TBWL. Original weight on 09/26/2023 was 337 pounds and op weight was 282.2 pounds. Be sure to text Dr Castro exactly 1 week after surgery your weight from your home scale so he can adjust your meal plan. Continue meal plan until f/u cate Walter in 2 weeks May shower, no submersion in bath for another week Continue abdominal binder with activity and exercise for the next 2 weeks. Exercise prior to surgery was elliptical and may resume in 1 more week as she does not have Steri-Strips on given her allergy No abdominal exercises for 6 weeks post operatively Will be emailed link to post op video for review Reminded of the pace of drinking, 2 mL per minute, 1 oz/15 min.
[2024-02-11 13:23] VITALS: BP 133/40; PULSE 80; TEMP 35.7; O2SAT 97; BMI 41.8
== END 2024-02-11 14:18 | disposition home or self-care (01) ==
PROVIDERS: Visit Provider Physician Assistant Surgical
DX: Z98.84 Bariatric surgery status (principal)
CPT/HCPCS: 99024

== ENCOUNTER → 2024-02-11 12:55 | Outpatient (BNVA) | payer MEDICAID, SELFPAY | PROVIDERS: Visit Provider Physician Assistant Surgical | DX: Z48.815 Encounter for surgical aftercare following surgery on the digestive system (principal); Z98.84 Bariatric surgery status | CPT/HCPCS: 99212 ==

== ENCOUNTER 2024-02-16 10:00 | Outpatient (AMB) | payer OTHER, SELFPAY ==
--- NOTE | 2024-02-16 10:05 | A.OFFWM_ITS ---
Intake Intake Visit Reasons: VIDEO PO LSG 02/05/24 Allergies adhesive tape Allergy (Mild, Verified 03/04/24 09:41) Rash lactose Adverse Reaction (Intermediate, Verified 03/04/24 09:41) Gastrointestinal Upset PFSH Medical History GERD (gastroesophageal reflux disease) Joint pain Back pain Thyroid disease Depression Steatosis, liver Insomnia PCOS (polycystic ovarian syndrome) Anxiety ADHD Morbid obesity Surgical History S/P laparoscopic sleeve gastrectomy H/O wisdom tooth extraction History of esophagogastroduodenoscopy (EGD) History of ankle surgery Hx of knee surgery Family History Mother Mental health disorder Addiction Father Mental health disorder Addiction Sister Obesity Mental health disorder Sister No problems noted. Social History Household Members: Significant Other Housing: Apartment Are you a primary critical care nurse practitioner to a significant other at home: No Do you presently have visiting nurse or other home services: No Alcohol intake: current Alcohol intake frequency: a few times a month Patient Tobacco Use Status: Former Tobacco user Years Smoked: 4 service: No Behavioral Health Assessment Weight Management Therapy Therapy Notes Details Subjective: PT reports feeling physically and emotionally well but mentally a bit tired. She shares that her mom, her boyfriend, and some friends have been helping her with daily tasks. Despite recent changes, she did not take time off from school and has been completing online classes and finishing her homework. Objective: PT presents for a follow-up visit via Telehealth after bariatric surgery, which was performed on 02/05/2024. We worked on adjusting to her new life after bariatric surgery, emphasizing the importance of embracing life changes. An interpersonal approach was used to address how these changes are impacting her mentally and emotionally. Assessment/Response: * Mental status: Alert, oriented x3, cooperative, euthymic. * Risk reported/identified: None Plan: PT is encouraged to continue attending therapy on a bi-weekly basis to support her ongoing adjustment. Additionally, she will join a Facebook support group to connect with others who have had similar experiences. Food/Weight/Diet Expectations of change Initial weight pre-surgery: 337Lbs. Weight on surgery day: 271Lbs Today's weight: 258Lbs. 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 Next appointment: None, as PT will continue therapy at a different facility. Telehealth [facility] Location of provider rendering services: other Location of patient: address on file Patient Identification confirmed using: Name, : Yes Telehealth method: video Patient verbally consented to treatment: Yes Patient verbally consented to billing insurance company: Yes Patient informed of any privacy concerns related to visit: Yes Minutes spent on Phone/Video with Pt.: 45 Coding Level of Care Code Established Pt Tele Psytx 45 mins ([id number]) Patient Type Established Diagnoses Trauma and stressor-related disorder F43.9 Time Spent (min) 45
== END 2024-02-16 11:00 | disposition home or self-care (01) ==
LOC: HO.HBST 10:41
PROVIDERS: Visit Provider Counselor Mental Health
DX: F43.9 Reaction to severe stress, unspecified (principal)
CPT/HCPCS: 90834

== ENCOUNTER → 2024-02-16 10:00 | Outpatient (BNVA) | payer OTHER, MEDICAID, SELFPAY | PROVIDERS: Visit Provider Counselor Mental Health ==

== ENCOUNTER 2024-03-04 09:37 | Outpatient (AMB) | payer MEDICAID, SELFPAY ==
--- NOTE | 2024-03-04 09:41 | A.OFFVIS_ITS ---
VS Expanded 03/04/24 09:46 BP 105/68 Blood Pressure Location Rt brachial Blood Pressure Position Sitting Pulse 61 Pulse Source Pulse Oximeter Temp 97 F Temperature Source Temporal Artery Scan Pulse Oximetry 99 Oxygen Delivery Method Room Air Height 5 ft 6 in Weight 246 lb BMI 39.7 Body Fat % 45.9 Body Fat Mass 112.8 Fat Free Mass 133.0 Visceral Fat Rating 10.0 Body Water % 38.9 Body Water Mass 95.6 Muscle Mass/Score 126.4 Basal Metabolic Rate/Score 1,931 Intake Visit Reasons: (OV) PO LSG 02/05/24 Caustic Preparer Required: No Allergies adhesive tape Allergy (Mild, Verified 03/04/24 09:41) Rash lactose Adverse Reaction (Intermediate, Verified 03/04/24 09:41) Gastrointestinal Upset Medication List - Last Reconciled 03/04/24 by MEGAN Reyes levothyroxine 25 mcg PO DAILY lorazepam 0.5 mg PO DAILY PRN pantoprazole 40 mg PO DAILY sucralfate 10 mL PO BID HPI Comments Details: This?a?24?yo female who is s/p LSG without hiatal hernia repair on?02/05/2024. Presents for 1 month post op visit. Weight today is 246 pounds, with a BMI of 39.7. There has been a 84 pound weight loss,(initial weight 330 pounds) since starting the program on 09/26/2023 reflecting a 25.4 % total body weight loss and a weight loss of 36.2 pounds since surgery (operative weight 282.2 pounds) reflecting a 12.8 % TBWL since surgery. No complaints of nausea, emesis, abdominal pain or reflux. Reports infrequent but normal bowel movements every 2- 3 days and uses stool softeners regularly. Taking celebrate mvi Present meal plan includes: clean simple eats powder 20 gm/scoop 3 shakes 1 scoop each mixed in almond milk fit crunch bar 45-50 oz water ? Exercise routine includes: walking 1.5 mi daily 200 leora elliptical 4-5 days per week, 300 leora each PFSH Medical History GERD (gastroesophageal reflux disease) Joint pain Back pain Thyroid disease Depression Steatosis, liver Insomnia PCOS (polycystic ovarian syndrome) Anxiety ADHD Morbid obesity Surgical History S/P laparoscopic sleeve gastrectomy H/O wisdom tooth extraction History of esophagogastroduodenoscopy (EGD) History of ankle surgery Hx of knee surgery Family History Mother Mental health disorder Addiction Father Mental health disorder Addiction Sister Obesity Mental health disorder Sister No problems noted. Social History Household Members: Significant Other Housing: Apartment Are you a primary career center advisor to a significant other at home: No Do you presently have visiting nurse or other home services: No Alcohol intake: current Alcohol intake frequency: a few times a month Patient Tobacco Use Status: Former Tobacco user Years Smoked: 4 service: No Physical Exam Const General: healthy appearing and no acute distress Resp Effort & Inspection: normal respiratory effort Auscultation: clear to auscultation bilaterally Cardio Rate: regular rate Rhythm: regular rhythm GI Auscultation: normal bowel sounds Extrem General: Yes normal to inspection Assessment & Plan Assessment & Plan (1) S/P laparoscopic sleeve gastrectomy: Code(s): Z98.84 - Bariatric surgery status Category: Surgical Plan: Doing well overall. She will continue her current meal plan as directed by Dr. Castro. Encouraged to increase exercise while at the gym from 300 calories to 350-400 calories as she is able. Plan on return to clinic in 1 month. Continue with weekly communication regarding weight and if any questions or concerns
[2024-03-04 09:46] VITALS: BP 105/68; PULSE 61; TEMP 36.1; O2SAT 99; BMI 39.7
== END 2024-03-04 10:12 | disposition home or self-care (01) ==
PROVIDERS: Visit Provider Physician Assistant Surgical
DX: Z98.84 Bariatric surgery status (principal)
CPT/HCPCS: 99024

== ENCOUNTER → 2024-03-04 09:37 | Outpatient (BNVA) | payer MEDICAID, SELFPAY | PROVIDERS: Visit Provider Physician Assistant Surgical | DX: E66.01 Morbid (severe) obesity due to excess calories (principal); Z71.3 Dietary counseling and surveillance; Z98.84 Bariatric surgery status; Z68.39 Body mass index [BMI] 39.0-39.9, adult | CPT/HCPCS: 99212 ==

== ENCOUNTER 2024-04-09 11:08 | Outpatient (AMB) | payer MEDICAID, SELFPAY ==
--- NOTE | 2024-04-09 09:54 | MHC.OFFVISWM ---
VS Expanded 04/09/24 09:55 Height 5 ft 6 in Weight 231 lb 8 oz BMI 37.4 Body Fat % 46.3 Fat Free Mass 124.4 Visceral Fat Rating 19 Body Water % 36.8 Muscle Mass/Score 117 Basal Metabolic Rate/Score 1,579 Intake Visit Reasons: (TV) PO LSG 02/05/24 -see note please Application Trainer Required: No Allergies adhesive tape Allergy (Mild, Verified 03/04/24 09:41) Rash lactose Adverse Reaction (Intermediate, Verified 03/04/24 09:41) Gastrointestinal Upset Medication List - Last Reconciled 04/09/24 by MEGAN Reyse levothyroxine 25 mcg PO DAILY lorazepam 0.5 mg PO DAILY PRN pantoprazole 40 mg PO DAILY sucralfate 10 mL PO BID HPI Comments Details: This?a?24?yo female who is s/p LSG without hiatal hernia repair on?02/05/2024. Presents for 2 month post op visit. Weight today is 231.8 pounds, with a BMI of 37.4. There has been a 98.2 pound weight loss,(initial weight 330 pounds) since starting the program on 09/26/2023 reflecting a 29.7 % total body weight loss and a weight loss of 50.4 pounds since surgery (operative weight 282.2 pounds) reflecting a 17.8 % TBWL since surgery. No complaints of nausea, emesis, abdominal pain or reflux. Reports infrequent but normal bowel movements every 2-3 days and uses stool softeners regularly. Taking celebrate mvi. Overall very happy with her current progress and with her meal plan. Present meal plan includes: clean simple eats powder 20 gm/scoop 3 shakes 1/2 scoop mixed in almond milk 8-10 fit crunch bar, 11-1 another 1/2 scoop shake, 2-4 3 forks protein and 3 forks cooked veg 1 scoop 7-9 50-60 oz water ? Exercise routine includes: elliptical 5 days per week, 350-400 leora each treadmill 5 x per week [facility] Medical History GERD (gastroesophageal reflux disease) Joint pain Back pain Thyroid disease Depression Steatosis, liver Insomnia PCOS (polycystic ovarian syndrome) Anxiety ADHD Morbid obesity Surgical History S/P laparoscopic sleeve gastrectomy H/O wisdom tooth extraction History of esophagogastroduodenoscopy (EGD) History of ankle surgery Hx of knee surgery Family History Mother Mental health disorder Addiction Father Mental health disorder Addiction Sister Obesity Mental health disorder Sister No problems noted. Social History Household Members: Significant Other Housing: Apartment Are you a primary respiratory care practitioner to a significant other at home: No Do you presently have visiting nurse or other home services: No Alcohol intake: current Alcohol intake frequency: a few times a month Patient Tobacco Use Status: Former Tobacco user Years Smoked: 4 service: No Telehealth Telehealth Telehealth Platform: Telephone Location of provider rendering services: practice address Location of patient: address on file Patient Identification confirmed using: Name, : Yes Telehealth method: voice only Patient verbally consented to treatment: Yes Patient verbally consented to billing insurance company: Yes Patient informed of any privacy concerns related to visit: Yes Minutes spent on Phone/Video with Pt.: 15 Assessment & Plan Assessment & Plan (1) S/P laparoscopic sleeve gastrectomy: Code(s): Z98.84 - Bariatric surgery status Category: Surgical Plan: Continued current meal plan Encouraged increase calories burned to 400 or more consistently. Continue to text weekly with weights and with any questions or concerns Return to clinic 1 month.
[2024-04-09 09:55] VITALS: BMI 37.4
--- OUTSIDE RECORDS SUMMARY | 2024-04-09 13:16 | XMS_ITS | Clinical Summary ---
Author Organization [facility] it Address [address] [place] [address] Care Team Providers Care Marketing Sales Manager Name Role Phone Unavailable Primary Care Provider Unavailabl e Social History Tobacco Use Types Packs/Day Years Used Date Smoking Tobacco: Never Assessed Sex and Gender Information Value Date Recorded Sex Assigned at Not on file Gender Identity Not on file Sexual Orientation Not on file Plan of Treatment Health Maintenance Due Date Last Done Comments Gonorrhea/Chlamydia Screening 2001 HPV Vaccines (1 - 3-dose series) 01/02/2016 DTaP,Tdap,and Td Vaccines (1 - Tdap) 01/02/2020 Hepatitis B Vaccines (1 of 3 - 19+ 3-dose series) 01/02/2020 Cervical Cancer Screening: P ap Smear 2022 COVID-19 Vaccine ( - 2023-2 5 season) 2023 Influenza Vaccine (#1) 2023 HIB Vaccines Aged Out No longer eligi ble based on patient's age to complete this topic Hepatitis A Vaccines Aged Out No long er eligible based on patient's age to complete this topic IPV Vaccines Aged Out No longer eligi ble based on patient's age to complete this topic MMR Vaccines Aged Out No longer eligi ble based on patient's age to complete this topic Meningococcal ACWY Vaccine Aged Out N o longer eligible based on patient's age to complete this topic Pneumococcal Vaccine: Pediat rics (0 to 5 Years) and At-Risk Patients (6 to 64 Years) Aged Out No longer eligible b ased on patient's age to complete this topic RSV Immunization Patients Un geovany 20 months Aged Out No longer eligible b ased on patient's age to complete this topic Varicella Vaccines Aged Out No longer eligible based on patient's age to complete this topic
--- OUTSIDE RECORDS SUMMARY | 2024-04-09 13:16 | XMS_ITS | Data Portability ---
Author Organization [facility] Breanna PHILLIPS'S Address [address] [place] [address] Care Team Providers Care Money Market Clerk Name Role Phone ASHLEY MONTIEL Referring Provider [phone] Assessment Encounter Date Assessment Date Assessment LastModified by Organization Details LastModified Time 11/27/2015 11/27/2015 Orthotic Goals: Choose all that apply Yes? Provide Support Yes? Reduce Pain Yes? Limit Motion Yes? Promote Healing Yes? Improve Stability Orthosis: is in stock & delivered today. She tried the classic Melendez w/hinges and the Melendez II hinged and preferred the Melendez II hinged, but with the thicker classic Melendez gel buttress. [email or web address] Not available 11/27/2015 16:57:19 09/30/2019 09/30/2019 Genna came into the [address] [place] [address] to be fit with bi-lateral genutrain knee braces. She did not fit into any of the ones we had in stock. Pt is too far from our location to come back to be fit with one that is ordered so they will have to go to a company that is closer to them. [email or web address] Not available 09/30/2019 15:55:32 10/19/2019 10/19/2019 Genna was seen today as scheduled to be fit with b/l PTOs. The initial script called for b/l genutrains, but given the size of her leg and amount of redundant tissue, I didn't think a genutrain would be appropriate for her. After talking to Dr. Walton's PA, we will try a couple types of braces. One being more like a genutrain style sleeve with buttress, and the other simple hinge that we can sew a butress onto if she likes the simple hinge style. Orthotic Goals: Choose all that apply Yes Provide Support Yes Reduce Pain Yes Limit Motion Yes Promote Healing Yes Improve Stability Yes Positioning The patient will be seen on an as needed basis. Orthosis: is not in stock. It will be ordered and fit at [place] [facility]. The patient was seen today after being pre-screened via phone for all COVID-19 risk factors. The patient's family understands the risk factors of coming into the office during this time, and the patient was deemed to not have any vulnerable high-risk factors for infection prior to their visit. The office was appropriately cleaned and disinfected prior to their arrival, and the patient was escorted into the office directly into the patient examination room, making minimal contact with other areas of the office. All staff wore mask and glove PPE, maintaining hand hygiene guidelines and distancing, as possible, during and after all patient contact, as re commended by the CDC guidelines. After the patient was escorted from the office at the end of the visit, all tools, equipment, chairs, exam beds, doorknobs, and any other necessary areas were cleaned and disinfected. The family understands the importance of contacting our office and local health officials if any COVID-19 symptoms develop within 2 weeks of their visit with our clinic. Not available 10/20/2019 09:35:46 10/22/2019 10/22/2019 Genna was seen today to be fit with b/l PTOs. Genna ended up going home with a sleeve with a built in butress and low profile hinges. This hopefully should give her the needed patellar support, but not over brace and be too bulky considering b/l. She is going to try them as she starts physical therapy and gets back to physical activity. Patient was pleased with the fit and function of the orthosis today and was able to demonstrate proper ambulation while wearing it. Patient verbally expressed comfort and support while wearing the orthosis. Orthotic Goals: Choose all that apply Yes Provide Support Yes Limit Motion Yes Improve Stability Yes Positioning The patient will be seen on an as needed basis. Orthosis: is in stock and delivered today. The patient was seen today after being pre-screened via phone for all COVID-19 risk factors. The patient's family understands the risk factors of coming into the office during this time, and the patient was deemed to not have any vulnerable high-risk factors for infection prior to their visit. The office was appropriately cleaned and disinfected prior to their arrival, and the patient was escorted into the office directly into the patient examination room, making minimal contact with other areas of the office. All staff wore mask and glove PPE, maintaining hand hygiene guidelines and distancing, as possible, during and after all patient contact, as re commended by the CDC guidelines. After the patient was escorted from the office at the end of the visit, all tools, equipment, chairs, exam beds, doorknobs, and any other necessary areas were cleaned and disinfected. The family understands the importance of contacting our office and local health officials if any COVID-19 symptoms develop within 2 weeks of their visit with our clinic. peter Not available 10/22/2019 17:08:28 Plan of Treatment Reminders Order Date Submit Date Provider Last Modified By Organization Details Last Modified Time Details Appointments None record ed. Lab None record ed. Referral None record ed. Procedures None record ed. Surgeries None record ed. Imaging None record ed. Medication Orders None record ed. Patient TargetsNo targets recorded. Patient Instructions Encounter Date Encounter Id Patient Instructions Last Modified By Organization Details Last Modified Time 11/27/2015 [id number] {{Patient Caregi v er Patient & caregiver*}} {{was was not were* were not}} provided with {{oral written or al & written*}} instructions regarding proper donning, doffing, wear, care and maintenance. {{Patient* Caregi barak Patient & caregiver}} {{did* did not}} demonstrate that they were able to properly don and doff the orthosis. {{Patient Caregiv er* Patient & caregiver}} {{was* was not were were not}}? ? ?instructed to call if any questions or problems arise.? ? ? [email or web address] Not available 11/27/2015 16:57:19 10/19/2019 [id number] {{Patient* Careg i barak Patient and caregiver}} {{was* was not were were not}} provided with my card and instructed to call if any questions or problems arise. Not available 10/20/2019 09:36:30 10/22/2019 [id number] {{Patient* Careg i barak Patient and caregiver}} {{was* was not were were not}} provided with {{oral* written o ral and written}} instructions regarding proper donning, doffing, wear, care and maintenance. {{Patient* Caregi barak Patient and caregiver}} {{did* did not}} demonstrate that they were able to properly don and doff the orthosis. {{Patient* Caregi barak Patient and caregiver}} {{was* was not were were not}} provided with my card and instructed to call if any questions or problems arise. peter Not available 10/22/2019 17:08:30 Reason for Referral None Reported. Problems Name Problem SNOMED Code Status Onset Date Resolution Date Notes Provider Name and Address Organization Details Recorded Time Dislocation of patellofemoral joint 154433012 Active [facility] [address], [place], [address], [place] [facility] 16:45:58 Patellar instability 004820988 Active [place] [address] [address], [address], [place] [facility] 16:57:19 Problem Notes None recorded. Procedures Surgical History Date Name Laterality Status Provider Name and Address Organization Details Recorded Time 0 OTS Procedures completed Drew Martinez [facility] [place] [address], [address], [place] [facility] 10/22/2019 16:58:50 6 OTS Knee Procedures completed [place] [address], [address], [place] [facility] 11/27/2015 16:57:19 6 OTS Procedures completed [facility] [address], [place], [address], [place] [facility] 10/05/2015 16:45:58 4 OTS Knee Procedures completed [facility] [address], [place], [address], [place] [facility] 02/03/2014 16:44:27 Imaging Results None recorded. Procedure Notes None recorded. Medical Equipment None Reported. Vitals Date Recorded Body height Provider Name an d Address Organization Details Last Updated DateTime 09/30/2019 167.64 cm huong faustin [facility] 15:46:06 Date Recorded Body weight Provider Name an d Address Organization Details Last Updated DateTime 09/30/2019 762180.71 g huong faustin [facility] 15:46:28 Date Recorded Body height Provider Name an d Address Organization Details Last Updated DateTime 10/20/2019 167.64 cm Drew Martinez, nature photographer [address], [place], [address] 10/20/2019 08:45:03 Date Recorded Body height Provider Name an d Address Organization Details Last Updated DateTime 10/22/2019 167.64 cm Drew Martinez, nature photographer [address], [place], [address] 10/22/2019 16:56:59 Date Recorded Body weight Provider Name an d Address Organization Details Last Updated DateTime 10/22/2019 706900.71 g Drew Martinez, nature photographer [address], [place], [address] 10/22/2019 16:57:07 Social History None recorded. Functional Status None recorded. Mental Status None recorded. Family History Nothing Reported. Medical History No medical history recorded. Gynecological HistoryNo gynecological history recorded. Obstetrics History GPAL:G 0 P 0 0 0 0 Past Encounters Encounter ID Performer Location Encounter Start Date Encounter Closed Date Diagnosis/Indication Diagnosis SNOMED-CT Code Diagnosis ICD10 Code Diagnosis Note [id number] Wendie Davis, [facility] [address] [place] [address] 02/02/2014 15:01:58 02/04/2014 14:21:43 Dislocation of patellofemoral joint [id number] Brigitte Moe [facility] [address] [place] [address] 10/05/2015 16:25:13 10/06/2015 12:31:18 Dislocation of patellofemoral joint 777474492 S83.015D [id number] Elizabeth Vivar [facility] [address] [place] [address] 11/27/2015 15:16:22 11/28/2015 11:10:40 Patellar instability 974446993 M25.362 [id number] Carolina Tellez, [place] [employer] [address] [place] [address] 03/04/2017 14:41:46 03/05/2017 20:33:51 Chronic instability of knee 496945765 M23.52 [id number] MORGAN GARCIA, CEMENTER HAND [employer] [address] [place] [address] 09/30/2019 15:27:03 10/01/2019 12:12:23 [id number] Kari Carrizales, CEMENTER HAND [facility] [address] [place] [address] 10/19/2019 12:26:31 10/21/2019 09:28:34 Patellar instability 182856954 M25.369 [id number] [place] [facility] [address] [place] [address] 10/22/2019 16:10:33 10/25/2019 08:09:16 Patellar instability 648471262 M25.361 M25.362 Health Concerns Section Related Observation LastModified by Organization Detai ls LastModified Time None Recorded Concern Status LastModified by Organization Details LastModified Time None Recorded Advance Directives Directive None Recorded Payers Encounter Date Sequence Insurance Name Policy Number Policy Johnson Covered Member ID Johnson Member ID Guarantor Name 11/27/2015 1 [place] Genna R Salatino [id number] Genna R Salatino 03/04/2017 1 [place] Genna R Salatino [id number] Genna R Salatino 09/30/2019 1 [place] Genna R Salatino [id number] Genna R Salatino 09/30/2019 1 [place] [id number] Genna R Salatino [id number] Genna R Salatino 10/19/2019 1 [place] Genna R Salatino [id number] Genna R Salatino 10/22/2019 1 [place] Genna R Salatino [id number] Genna Martinez Notes Date Note Type Note Provider Name and Address Organization Details Recorded Time 11/27/2015 text/html Patient Accompan ied ByReported bypatient.patient accompaniedraffy Amaral Generic HPIReported bypatient.Notes:She had her 2nd left patellar dislocation in August 2015. She has also had 2 dislocations and corrective surgery on her right knee. She has been wearing a oxlq-s-vqbutqe and they wanted to put her in something a little smaller. Elizabeth Vivar, [place] [address], [place], [address], [facility] 11/27/2015 16:57:29 09/30/2019 text/html Patient Accompan ied ByReported bypatient.Patient Theodore Vail came into the [address] [place] [address] to be fit with bi-lateral genutrain knee braces. MORGAN GARCIA, CEMENTER HAND [address], [place], [address], [facility] 09/30/2019 16:24:05 10/19/2019 text/html Patient Accompan ied ByReported bypatient.Patient Accompaniedraffy Amaral Generic HPIReported bypatient.Previous surgeriesdate of surgery (08/23/2019) Genna has had multiple knee surgeries and has had several different KOs. Most recent sx August 22 to stabilize Lt patellar by Dr. Isabelle Carrizales, [facility] [address], [place], [address], [facility] 10/20/2019 09:36:38 10/22/2019 text/html Patient Accompan ied ByReported bypatient.Patient Theodore Amaral Generic HPIReported bypatient.Previous surgeriesdate of surgery (08/23/2019) Genna has had multiple knee surgeries and has had several different KOs. Most recent sx August 22 to stabilize Lt patellar by Dr. Isabelle Vivar, [place] [address], [place], [address], [facility] 10/22/2019 17:23:36 OBGyn Episode No OBEpisode recorded.
== END 2024-04-09 11:29 | disposition home or self-care (01) ==
LOC: HO.HBS 11:08
PROVIDERS: Visit Provider Physician Assistant Surgical
DX: Z98.84 Bariatric surgery status (principal)
CPT/HCPCS: 99024

== ENCOUNTER → 2024-04-09 11:08 | Outpatient (BNVA) | payer MEDICAID, SELFPAY | PROVIDERS: Visit Provider Physician Assistant Surgical | DX: Z48.815 Encounter for surgical aftercare following surgery on the digestive system (principal); Z98.84 Bariatric surgery status | CPT/HCPCS: 99212 ==

== ENCOUNTER 2024-05-14 11:03 | Outpatient (AMB) | payer MEDICAID, SELFPAY ==
--- NOTE | 2024-05-14 10:48 | A.OFFVIS_ITS ---
VS Expanded 05/14/24 10:49 Height 5 ft 6 in Weight 222 lb 4 oz BMI 35.9 Body Fat % 44 Fat Free Mass 124.6 Visceral Fat Rating 17 Body Water % 38.4 Muscle Mass/Score 117 Basal Metabolic Rate/Score 1,604 Intake Visit Reasons: (TV) PO LSG 02/05/24 Lehr Loader Required: No Allergies adhesive tape Allergy (Mild, Verified 03/04/24 09:41) Rash lactose Adverse Reaction (Intermediate, Verified 03/04/24 09:41) Gastrointestinal Upset Medication List - Last Reconciled 05/14/24 by MEGAN Reyes levothyroxine 25 mcg PO DAILY lorazepam 0.5 mg PO DAILY PRN HPI Comments Details: This?a?24?yo female who is s/p LSG without hiatal hernia repair on?02/05/2024. Presents for 3 month post op visit. Weight today is 222.4 pounds, with a BMI of 35.9. There has been a 107.6 pound weight loss,(initial weight 330 pounds) since starting the program on 09/26/2023 reflecting a 32.6 % total body weight loss and a weight loss of 59.8 pounds since surgery (operative weight 282.2 pounds) reflecting a 21.1 % TBWL since surgery. No complaints of nausea, emesis, abdominal pain or reflux. Reports infrequent but normal bowel movements every 2-3 days and uses stool softeners regularly. Taking celebrate mvi. Overall very happy with her current progress and with her meal plan. Present meal plan includes: clean simple eats powder 20 gm/scoop 3 shakes 1/2 scoop mixed in almond milk 8-10 fit crunch bar, 11-1 another 1/2 scoop shake, 2-4 3 forks protein and 3 forks cooked veg 1 scoop 7-9 50-60 oz water ? Exercise routine includes: elliptical 5 days per week, 200 leora each treadmill 5 x per week, 150-200 exercise classes - BAR classes [facility] Medical History GERD (gastroesophageal reflux disease) Joint pain Back pain Thyroid disease Depression Steatosis, liver Insomnia PCOS (polycystic ovarian syndrome) Anxiety ADHD Morbid obesity Surgical History S/P laparoscopic sleeve gastrectomy H/O wisdom tooth extraction History of esophagogastroduodenoscopy (EGD) History of ankle surgery Hx of knee surgery Family History Mother Mental health disorder Addiction Father Mental health disorder Addiction Sister Obesity Mental health disorder Sister No problems noted. Social History Household Members: Significant Other Housing: Apartment Are you a primary healthcare administrative assistant to a significant other at home: No Do you presently have visiting nurse or other home services: No Alcohol intake: current Alcohol intake frequency: a few times a month Patient Tobacco Use Status: Former Tobacco user Years Smoked: 4 service: No Telehealth Telehealth Telehealth Platform: Telephone Location of provider rendering services: practice address Location of patient: address on file Patient Identification confirmed using: Name, : Yes Telehealth method: voice only Patient verbally consented to treatment: Yes Patient verbally consented to billing insurance company: Yes Patient informed of any privacy concerns related to visit: Yes Minutes spent on Phone/Video with Pt.: 15 Assessment & Plan Assessment & Plan (1) S/P laparoscopic sleeve gastrectomy: Code(s): Z98.84 - Bariatric surgery status Category: Surgical Plan: Patient is doing well. Achieving good weight loss. She is satisfied with her meal plan and wishes to continue at this time. Encouraged to increase calories burned at the gym to approximately 250 per machine per day. She was encouraged to continue to text weight weekly. Text with any questions or concerns. Follow-up in the office as scheduled.
[2024-05-14 10:49] VITALS: BMI 35.9
--- OUTSIDE RECORDS SUMMARY | 2024-05-14 12:50 | XMS_ITS | Data Portability ---
Author Organization [facility] Breanna PHILLIPS'S Address [address] [place] [address] Care Team Providers Care Denitrator Name Role Phone ASHLEY MONTIEL Referring Provider Assessment Encounter Date Assessment Date Assessment LastModified [...] 16:57:19 09/30/2019 09/30/2019 Genna came into the [address] [place] [address] to be fit with bi-lateral genutrain knee [...] It will be ordered and fit at [facility]. The patient was seen today after being [...] By Organization Details Last Modified Time 11/27/2015 [id number] {{Patient Caregi v er Patient & caregiver*}} [...] ? [email or web address] Not available 11/27/2015 16:57:19 10/19/2019 [id number] {{Patient* Careg i barak Patient and caregiver}} {{was* was not were were not}} provided with my card and instructed to call if any questions or problems arise. Not available 10/20/2019 09:36:30 10/22/2019 [id number] {{Patient* Careg i barak Patient and caregiver}} [...] Details Recorded Time Dislocation of patellofemoral joint 132459871 Active [facility] [address], [place], [address], [place] [facility] 6 16:45:58 Patellar instability 538120396 Active [place] [address], [address], [place] [facility] 6 16:57:19 Problem Notes None recorded. Procedures Surgical History Date Name Laterality Status Provider Name and Address Organization Details Recorded Time 0 OTS Procedures completed Drew Martinez [facility] [place] [address], [address], [place] [facility] 10/22/2019 16:58:50 6 OTS Knee Procedures completed [place] [address], [address], [place] [facility] 11/27/2015 16:57:19 6 OTS Procedures completed [facility] [address], [place], [address], [place] [facility] 10/05/2015 16:45:58 4 OTS Knee Procedures completed [facility] [address], [place], [address], [place] [facility] 02/03/2014 16:44:27 Imaging Results None recorded. Procedure Notes None recorded. Medical Equipment None Reported. Vitals Date Recorded Body height Body weight Provider Name and Address Organization Details Last Updated DateTime 09/30/2019 167.64 cm 381612.71 g huong faustin [facility] 09/30/2019 15:46:28 Date Recorded Body height Provider Name an d Address Organization Details Last Updated DateTime 10/19/2019 167.64 cm Drew Martinez, parking lot supervisor [address], [place], [address], [facility] 10/20/2019 08:45:03 Date Recorded Body height Body weight Provider Name and Address Organization Details Last Updated DateTime 10/22/2019 167.64 cm 519464.71 g Drew Martinez, parking lot supervisor [address], [place], [address], [facility] 10/22/2019 16:57:07 Social History None recorded. Functional Status None recorded. Mental Status None recorded. Family History Nothing Reported. Medical History No medical history recorded. Gynecological HistoryNo gynecological history recorded. Obstetrics History GPAL:G 0 P 0 0 0 0 Past Encounters Encounter ID Performer Location Encounter Start Date Encounter Closed Date Diagnosis/Indication Diagnosis SNOMED-CT Code Diagnosis ICD10 Code Diagnosis Note [id number] Wendie Davis [facility] [address] [place] [address] 02/02/2014 15:01:58 02/04/2014 14:21:43 Dislocation of patellofemoral joint 076862343 [id number] Brigitte Moe [facility] [address] [place] [address] 10/05/2015 16:25:13 10/06/2015 12:31:18 Dislocation of patellofemoral joint 546558540 S83.015D [id number] [facility] [address] [place] [address] 11/27/2015 15:16:22 11/28/2015 11:10:40 Patellar instability 789497264 M25.362 [id number] Carolina Tellez [facility] [address] [place] [address] 03/04/2017 14:41:46 03/05/2017 20:33:51 Chronic instability of knee 207224060 M23.52 [id number] MORGAN GARCIA, COMPUTER HARDWARE DESIGNER [place] [address] [place] [address] 09/30/2019 15:27:03 10/01/2019 12:12:[id number] [facility] [address] [place] [address] 10/19/2019 12:26:31 10/21/2019 09:28:34 Patellar instability 573741322 M25.369 [id number] [facility] [address] [place] [address] 10/22/2019 16:10:33 10/25/2019 08:09:16 Patellar instability 889797737 M25.361 M25.362 Health Concerns Section Related Observation LastModified by Organization Detai ls LastModified Time None Recorded Concern Status LastModified by Organization Details LastModified Time None Recorded Advance Directives Directive None Recorded Payers Encounter Date Sequence Insurance Name Policy Number Policy Johnson Covered Member ID Johnson Member ID Guarantor Name 11/27/2015 1 [place] Genna R Salatino [id number] Genna R Salatino 03/04/2017 1 [place] Genna R Salatino [id number] Genna R Salatino 09/30/2019 1 [place] Genna R Salatino [id number] Genna R Salatino 09/30/2019 1 [place] [id number] Genna R Salatino [id number] Genna R Salatino 10/19/2019 1 [place] Genna R Salatino [id number] Genna R Salatino 10/22/2019 1 [place] Genna R Salatino [id number] Genna R Salatino Notes Date Note Type Note Provider Name and Address Organization Details Recorded Time 11/27/2015 text/html Patient Accompan ied ByReported bypatient.patient accompaniedby motherOTS Generic HPIReported bypatient.Notes:She had her 2nd left patellar dislocation in August 2015. She has also had 2 dislocations and corrective surgery on her right knee. She has been wearing a jobe-v-qyngmbe and they wanted to put her in something a little smaller. Elizabeth Vivar, [place] [address], [place], [address], [facility] 11/27/2015 16:57:29 09/30/2019 text/html Patient Accompan ied ByReported bypatient.Patient Accompaniedby mother Genna came into the [address] [place] [address] to be fit with bi-lateral genutrain knee braces. MORGAN GARCIA, COMPUTER HARDWARE DESIGNER [address], [place], [address], [facility] 09/30/2019 16:24:05 10/19/2019 text/html Patient Accompan ied ByReported bypatient.Patient Accompaniedby motherMILLY Generic HPIReported bypatient.Previous surgeriesdate of surgery (08/23/2019) Genna has had multiple knee surgeries and has had several different KOs. Most recent sx August 22 to stabilize Lt patellar by Dr. Isabelle Carrizales, [facility] [address], [place], [address], [facility] 10/20/2019 09:36:38 10/22/2019 text/html Patient Accompan ied ByReported bypatient.Patient Accompaniedby Munir Generic HPIReported bypatient.Previous surgeriesdate of surgery (08/23/2019) Genna has had multiple knee surgeries and has had several different KOs. Most recent sx August 22 to stabilize Lt patellar by Dr. Isabelle Vivar, [place] [address], [place], [address], [facility] 10/22/2019 17:23:36 OBGyn Episode No OBEpisode recorded.
--- OUTSIDE RECORDS SUMMARY | 2024-05-14 12:50 | XMS_ITS | Clinical Summary ---
Author Organization [facility] it Address [address] [place] [address] Care Team Providers Care Prior Authorization Nurse Name Role Phone Unavailable Primary Care Provider Unavailabl e Social History Tobacco Use Types Packs/Day Years Used Date Smoking Tobacco: Never Assessed Comments Unknown Sex and Gender Information Value Date Recorded Sex Assigned at Not on file Legal Sex Female 4:20 PM EDT Gender Identity Not on file Sexual Orientation Not on file Plan of Treatment Health Maintenance Due Date Last Done Comments Gonorrhea/Chlamydia Screening 2001 HPV Vaccines (1 - 3-dose series) 01/02/2016 Meningococcal B Vacine (1 of 2 - Standard) 2017 DTaP,Tdap,and Td Vaccines (1 - Tdap) 01/02/2020 [...]
== END 2024-05-14 11:23 | disposition home or self-care (01) ==
LOC: HO.HBS 11:03
PROVIDERS: Visit Provider Physician Assistant Surgical
DX: E66.812 Obesity, class 2 (principal); Z68.35 Body mass index [BMI] 35.0-35.9, adult; Z90.3 Acquired absence of stomach [part of]; Z98.84 Bariatric surgery status
CPT/HCPCS: 99213

== ENCOUNTER → 2024-05-14 11:03 | Outpatient (BNVA) | payer MEDICAID, SELFPAY | PROVIDERS: Visit Provider Physician Assistant Surgical | DX: Z98.84 Bariatric surgery status (principal) ==

== ENCOUNTER 2024-07-16 09:08 | Outpatient (AMB) | payer MEDICAID, SELFPAY ==
--- NOTE | 2024-07-16 08:58 | A.OFFVIS_ITS ---
VS Expanded 07/16/24 08:59 Height 5 ft 6 in Weight 205 lb 6 oz BMI 33.1 Body Fat % 39.8 Fat Free Mass 123.8 Visceral Fat Rating 15 Body Water % 41.3 Muscle Mass/Score 116.4 Basal Metabolic Rate/Score 1,579 Intake Visit Reasons: (TV) PO LSG 02/05/24 Oracle Sql Developer Required: No Allergies adhesive tape Allergy (Mild, Verified 03/04/24 09:41) Rash lactose Adverse Reaction (Intermediate, Verified 03/04/24 09:41) Gastrointestinal Upset Medication List - Last Reconciled 07/16/24 by MEGAN Reyes levothyroxine 25 mcg PO DAILY 90 days lorazepam 0.5 mg PO DAILY PRN HPI Comments Details: This?a?24?yo female who is s/p LSG without hiatal hernia repair on?02/05/2024. Presents for 6 month post op visit. Weight today is 205.6 pounds, with a BMI of 33.1. There has been a 124.4 pound weight loss,(initial weight 330 pounds) since starting the program on 09/26/2023 reflecting a 37.6 % total body weight loss and a weight loss of 76.6 pounds since surgery (operative weight 282.2 pounds) reflecting a 27.1 % TBWL since surgery. No complaints of nausea, emesis, abdominal pain or reflux. Reports infrequent but normal bowel movements every 2-3 days and uses stool softeners regularly. Taking celebrate mvi. Overall very happy with her current progress and with her meal plan. Present meal plan includes: clean simple eats powder 20 gm/scoop 3 shakes 1/2 scoop mixed in almond milk 8-10 another shake, 11-1 fit crunch bar, 2-4 3 forks protein and 3 forks cooked veg 1 scoop 7-9 60 oz water ? Exercise routine includes: cycle class treadmill 5 x per week, 400 leora exercise classes - BAR classes pilates and aerobics 3 x per week Any post op complications: none IZAIAH: never DM: never HTN: never Hyperlipidemia: never GERD:?0-5 scale ??0 = no symptoms ??1 = symptoms noticeable but not bothersome 2 =symptoms bothersome but not daily ? 3 = symptoms bothersome and daily 4 = symptoms affect daily activities 5 = symptoms are incapacitating, unable to do daily activities ? How bad is the heartburn: 0 ? Heartburn while lying down: 0 ? Heartburn when standing up: 0 ? Heartburn after meals: 0 ? Does heartburn change your diet: 0 ? Does heartburn wake you up from sleep: 0 ? Do you have difficulty swallowin ? Do you have pain with swallowin ? If you take medicine for your reflux, does this affect your daily life: 0 Satisfaction with present condition - satisfied or not satisfied: satisfied [facility] Medical History GERD (gastroesophageal reflux disease) Joint pain Back pain Thyroid disease Depression Steatosis, liver Insomnia PCOS (polycystic ovarian syndrome) Anxiety ADHD Morbid obesity Surgical History S/P laparoscopic sleeve gastrectomy H/O wisdom tooth extraction History of esophagogastroduodenoscopy (EGD) History of ankle surgery Hx of knee surgery Family History Mother Mental health disorder Addiction Father Mental health disorder Addiction Sister Obesity Mental health disorder Sister No problems noted. Social History Household Members: Significant Other Housing: Apartment Are you a primary primary care sales representative to a significant other at home: No Do you presently have visiting nurse or other home services: No Alcohol intake: current Alcohol intake frequency: a few times a month Patient Tobacco Use Status: Former Tobacco user Years Smoked: 4 service: No Telehealth Telehealth Telehealth Platform: Telephone Location of provider rendering services: practice address Location of patient: address on file Patient Identification confirmed using: Name, : Yes Telehealth method: voice only Patient verbally consented to treatment: Yes Patient verbally consented to billing insurance company: Yes Patient informed of any privacy concerns related to visit: Yes Minutes spent on Phone/Video with Pt.: 15 Assessment & Plan Assessment & Plan (1) S/P laparoscopic sleeve gastrectomy: Code(s): Z98.84 - Bariatric surgery status Category: Surgical Plan: Overall, patient has done well with her weight loss. She is continuing to make strides. She does not wish to change her meal plan significantly at this time. Encouraged to continue exercise and continue to track her calories. We will check six-month postop labs. Follow-up in August. Encouraged to continue to text weekly with her weight is and with any questions or concerns. Orders: Orders Hemoglobin A1c Today E03.9 - Hypothyroidism, unspecified, E50.9 - Vitamin A deficiency, unspecified, E51.9 - Thiamine deficiency, unspecified, E55.9 - Vitamin D deficiency, unspecified, F41.9 - Anxiety disorder, unspecified, Z98.84 - Bariatric surgery status Lipid Panel Today E03.9 - Hypothyroidism, unspecified, E50.9 - Vitamin A deficiency, unspecified, E51.9 - Thiamine deficiency, unspecified, E55.9 - Vitamin D deficiency, unspecified, F41.9 - Anxiety disorder, unspecified, Z98.84 - Bariatric surgery status Vitamin B12 and Folate Today E03.9 - Hypothyroidism, unspecified, E50.9 - Vitamin A deficiency, unspecified, E51.9 - Thiamine deficiency, unspecified, E55.9 - Vitamin D deficiency, unspecified, F41.9 - Anxiety disorder, unspecified, Z98.84 - Bariatric surgery status Zinc Today E03.9 - Hypothyroidism, unspecified, E50.9 - Vitamin A deficiency, unspecified, E51.9 - Thiamine deficiency, unspecified, E55.9 - Vitamin D deficiency, unspecified, F41.9 - Anxiety disorder, unspecified, Z98.84 - Bariatric surgery status Vitamin B1 Today E03.9 - Hypothyroidism, unspecified, E50.9 - Vitamin A deficiency, unspecified, E51.9 - Thiamine deficiency, unspecified, E55.9 - Vitamin D deficiency, unspecified, F41.9 - Anxiety disorder, unspecified, Z98.84 - Bariatric surgery status Vitamin A Today E03.9 - Hypothyroidism, unspecified, E50.9 - Vitamin A deficiency, unspecified, E51.9 - Thiamine deficiency, unspecified, E55.9 - Vitamin D deficiency, unspecified, F41.9 - Anxiety disorder, unspecified, Z98.84 - Bariatric surgery status TSH reflex Free T4 Today E03.9 - Hypothyroidism, unspecified, E50.9 - Vitamin A deficiency, unspecified, E51.9 - Thiamine deficiency, unspecified, E55.9 - Vitamin D deficiency, unspecified, F41.9 - Anxiety disorder, unspecified, Z98.84 - Bariatric surgery status Insulin Today E03.9 - Hypothyroidism, unspecified, E50.9 - Vitamin A deficiency, unspecified, E51.9 - Thiamine deficiency, unspecified, E55.9 - Vitamin D deficiency, unspecified, F41.9 - Anxiety disorder, unspecified, Z98.84 - Bariatric surgery status Complete Blood Count Auto Diff Today E03.9 - Hypothyroidism, unspecified, E50.9 - Vitamin A deficiency, unspecified, E51.9 - Thiamine deficiency, unspecified, E55.9 - Vitamin D deficiency, unspecified, F41.9 - Anxiety disorder, unspecified, Z98.84 - Bariatric surgery status IRON PROFILE Today E03.9 - Hypothyroidism, unspecified, E50.9 - Vitamin A deficiency, unspecified, E51.9 - Thiamine deficiency, unspecified, E55.9 - Vitamin D deficiency, unspecified, F41.9 - Anxiety disorder, unspecified, Z98.84 - Bariatric surgery status Comprehensive Met. Panel Today E03.9 - Hypothyroidism, unspecified, E50.9 - Vitamin A deficiency, unspecified, E51.9 - Thiamine deficiency, unspecified, E55.9 - Vitamin D deficiency, unspecified, F41.9 - Anxiety disorder, unspecified, Z98.84 - Bariatric surgery status C Reactive Protein Today E03.9 - Hypothyroidism, unspecified, E50.9 - Vitamin A deficiency, unspecified, E51.9 - Thiamine deficiency, unspecified, E55.9 - Vitamin D deficiency, unspecified, F41.9 - Anxiety disorder, unspecified, Z98.84 - Bariatric surgery status Ferritin Today E03.9 - Hypothyroidism, unspecified, E50.9 - Vitamin A deficiency, unspecified, E51.9 - Thiamine deficiency, unspecified, E55.9 - Vitamin D deficiency, unspecified, F41.9 - Anxiety disorder, unspecified, Z98.84 - Bariatric surgery status Vitamin D 25-OH Total Today E03.9 - Hypothyroidism, unspecified, E50.9 - Vitamin A deficiency, unspecified, E51.9 - Thiamine deficiency, unspecified, E55.9 - Vitamin D deficiency, unspecified, F41.9 - Anxiety disorder, unspecified, Z98.84 - Bariatric surgery status
[2024-07-16 08:59] VITALS: BMI 33.1
--- OUTSIDE RECORDS SUMMARY | 2024-07-16 09:43 | XMS_ITS | Data Portability ---
Author Organization [facility] Breanna PHILLIPS'S Address [address] [place] [address] Care Team Providers Care Window Trimmer Apprentice Name Role Phone ASHLEY MONTIEL Referring Provider [...] 16:57:19 09/30/2019 09/30/2019 Genna came into the [address] [place] [address] to be fit with bi-lateral genutrain knee [...] It will be ordered and fit at [facility]. The patient was seen today after being [...] By Organization Details Last Modified Time 11/27/2015 [id number] {{Patient Caregi v er Patient & caregiver*}} [...] ? dilshad Not available 11/27/2015 16:57:19 10/19/2019 [id number] {{Patient* Careg i barak Patient and caregiver}} {{was* was not were were not}} provided with my card and instructed to call if any questions or problems arise. Not available 10/20/2019 09:36:30 10/22/2019 [id number] {{Patient* Careg i barak Patient and caregiver}} [...] Details Recorded Time Dislocation of patellofemoral joint 673633939 Active [facility] [address], [place], [address], [place] [facility] 6 16:45:58 Patellar instability 929842698 Active [place] [address] [address], [address], [place] [facility] 6 16:57:19 Problem Notes None recorded. Procedures Surgical History Date Name Laterality Status Provider Name and Address Organization Details Recorded Time 0 OTS Procedures completed Drew Martinez [facility] [place] [address] [address], [address], [place] [facility] 10/22/2019 16:58:50 6 OTS Knee Procedures completed [place] [address], [address], [place] [facility] 11/27/2015 16:57:19 6 OTS Procedures completed [facility] [address], [place], [address], [place] [facility] 10/05/2015 16:45:58 4 OTS Knee Procedures completed [facility] [address], [place], [address], [place] [facility] 02/03/2014 16:44:27 Imaging Results None recorded. Procedure Notes None recorded. Medical Equipment None Reported. Vitals Date Recorded Body height Body weight Provider Name and Address Organization Details Last Updated DateTime 09/30/2019 167.64 cm 818405.71 g huong ramin [facility] 09/30/2019 15:46:28 Date Recorded Body height Provider Name an d Address Organization Details Last Updated DateTime 10/19/2019 167.64 cm Drew Martinez, anvil seating press operator [address], [place], [address], [facility] 10/20/2019 08:45:03 Date Recorded Body height Body weight Provider Name and Address Organization Details Last Updated DateTime 10/22/2019 167.64 cm 023390.71 g Drew Martinez, anvil seating press operator [address], [place], [address], [facility] 10/22/2019 16:57:07 Social History None recorded. Functional Status None recorded. Mental Status None recorded. Family History Nothing Reported. Medical History No medical history recorded. Gynecological HistoryNo gynecological history recorded. Obstetrics History GPAL:G 0 P 0 0 0 0 Past Encounters Encounter ID Performer Location Encounter Start Date Encounter Closed Date Diagnosis/Indication Diagnosis SNOMED-CT Code Diagnosis ICD10 Code Diagnosis Note [id number] Wendie Davis [facility] [address] [place] [address] 02/02/2014 15:01:58 02/04/2014 14:21:43 Dislocation of patellofemoral joint 756242564 [id number] Brigitte Moe [facility] [address] [place] [address] 10/05/2015 16:25:13 10/06/2015 12:31:18 Dislocation of patellofemoral joint 047918476 S83.015D [id number] Elizabeth [facility] [address] [place] [address] 11/27/2015 15:16:22 11/28/2015 11:10:40 Patellar instability 144998763 M25.362 [id number] Carolina Tellez [facility] [address] [place] [address] 03/04/2017 14:41:46 03/05/2017 20:33:51 Chronic instability of knee 041753965 M23.52 [id number] Huong Anneamina, [facility] [address] [place] [address] 09/30/2019 15:27:03 10/01/2019 12:12:23 [id number] CFo SRAVANTHI Morin [address] [facility] [address] 10/19/2019 12:26:31 10/21/2019 09:28:34 Patellar instability 955897270 M25.369 [id number] CFo SRAVANTHI Morin [address] [place] [address] 10/22/2019 16:10:33 10/25/2019 08:09:16 Patellar instability 448362132 M25.361 M25.362 Health Concerns Section Related Observation LastModified by Organization Detai ls LastModified Time None Recorded Concern Status LastModified by Organization Details LastModified Time None Recorded Advance Directives Directive None Recorded Payers Encounter Date Sequence Insurance Name Policy Number Policy Johnson Covered Member ID Johnson Member ID Guarantor Name 11/27/2015 1 [place] Genna R Salatino [id number] Genna R Salatino 03/04/2017 1 [place] Genna R Salatino [id number] Genna R Salatino 09/30/2019 1 [place] Genna R Salatino [id number] Genna R Salatino 09/30/2019 1 [place] [id number] Genna R Salatino [id number] Genna R Salatino 10/19/2019 1 [place] Genna R Salatino [id number] Genna R Salatino 10/22/2019 1 [place] Genna R Salatino [id number] Genna R Salatino Notes Date Note Type Note Provider Name and Address Organization Details Recorded Time 11/27/2015 text/html Patient Accompan ied ByReported bypatient.patient accompaniedby motherOTS Generic HPIReported bypatient.Notes:She had her 2nd left patellar dislocation in August 2015. She has also had 2 dislocations and corrective surgery on her right knee. She has been wearing a mxyi-d-szaevvi and they wanted to put her in something a little smaller. Elizabeth Vivar, [place] [address], [place], [address], [facility] 11/27/2015 16:57:29 09/30/2019 text/html Patient Accompan ied ByReported bypatient.Patient Accompaniedby mother Genna came into the [address] [place] [address] to be fit with bi-lateral genutrain knee braces. MORGAN GARCIA, [facility] [address], [place], [address], [facility] 09/30/2019 16:24:05 10/19/2019 text/html Patient Accompan ied ByReported bypatient.Patient Accompaniedby Munir Generic HPIReported bypatient.Previous surgeriesdate of surgery (08/23/2019) Genna has had multiple knee surgeries and has had several different KOs. Most recent sx August 22 to stabilize Lt patellar by Dr. Isabelle Carrizales, [facility] [address], [place], [address], [facility] 10/20/2019 09:36:38 10/22/2019 text/html Patient Accompan ied ByReported bypatient.Patient Accompaniedby Munir Generic HPIReported bypatient.Previous surgeriesdate of surgery (08/23/2019) Genna has had multiple knee surgeries and has had several different KOs. Most recent sx August 22 to stabilize Lt patellar by Dr. Isabelle Vivar, [place] [address], [place], [address], [facility] 10/22/2019 17:23:36 OBGyn Episode No OBEpisode recorded.
--- OUTSIDE RECORDS SUMMARY | 2024-07-16 09:43 | XMS_ITS | Clinical Summary ---
Author Organization [facility] it Address [address] [place] [address] Care Team Providers Care Automatic Log Cut Off Sawyer Name Role Phone Unavailable Primary Care Provider [...] (1 - 3-dose series) 01/02/2016 Meningococcal B Vaccine (1 o f 2 - Standard) 2017 DTaP,Tdap,and Td Vaccines (1 - Tdap) 01/02/2020 Hepatitis B Vaccines (1 of 3 - 19+ 3-dose series) 01/02/2020 Cervical Cancer Screening: P ap Smear 2022 COVID-19 Vaccine ( - 2023-2 5 season) 2023 Influenza Vaccine (Season Ended) 2024 HIB Vaccines Aged Out No longer eligi [...]
== END 2024-07-16 09:22 | disposition home or self-care (01) ==
LOC: HO.HBS 09:08
PROVIDERS: Visit Provider Physician Assistant Surgical
DX: E66.09 Other obesity due to excess calories (principal); E66.811 Obesity, class 1; Z68.33 Body mass index [BMI] 33.0-33.9, adult; Z98.84 Bariatric surgery status
CPT/HCPCS: 98012

== ENCOUNTER → 2024-07-16 09:08 | Outpatient (BNVA) | payer MEDICAID, SELFPAY | PROVIDERS: Visit Provider Physician Assistant Surgical | DX: Z98.84 Bariatric surgery status (principal); E03.9 Hypothyroidism, unspecified; E51.9 Thiamine deficiency, unspecified; E50.9 Vitamin A deficiency, unspecified; E55.9 Vitamin D deficiency, unspecified; F41.9 Anxiety disorder, unspecified ==

== ENCOUNTER 2024-07-22 09:26 | Outpatient (REF) | payer MEDICAID, SELFPAY ==
[2024-07-22 09:41] LABS: MANUAL DIFF FLAG NO
--- OUTSIDE RECORDS SUMMARY | 2024-07-22 10:09 | XMS_ITS | Data Portability ---
Author Organization [facility] Breanna PHILLIPS'S Address [address] [place] [address] Care Team Providers Care Certified Registered Nurse Anesthetist Name Role Phone ASHLEY MONTIEL Referring Provider [...] 16:57:19 09/30/2019 09/30/2019 Genna came into the [address] [place] [address] to be fit with bi-lateral genutrain knee [...] It will be ordered and fit at [facility]. The patient was seen today after being [...] By Organization Details Last Modified Time 11/27/2015 [id number] {{Patient Caregi v er Patient & caregiver*}} [...] ? dilshad Not available 11/27/2015 16:57:19 10/19/2019 [id number] {{Patient* Careg i barak Patient and caregiver}} {{was* was not were were not}} provided with my card and instructed to call if any questions or problems arise. Not available 10/20/2019 09:36:30 10/22/2019 [id number] {{Patient* Careg i barak Patient and caregiver}} [...] Details Recorded Time Dislocation of patellofemoral joint 349360396 Active [facility] [address], [place], [address], [place] [facility] 6 16:45:58 Patellar instability 898140486 Active [place] [address], [address], [place] [facility] 6 16:57:19 Problem Notes None recorded. Procedures Surgical History Date Name Laterality Status Provider Name and Address Organization Details Recorded Time 0 OTS Procedures completed Drew Martinez [facility] [place] [address], [address], [place] [facility] 10/22/2019 16:58:50 6 OTS Knee Procedures completed [place] [address], [address], [place] [facility] 11/27/2015 16:57:19 6 OTS Procedures completed [facility] [address], [place], [address], [place] [facility] 10/05/2015 16:45:58 4 OTS Knee Procedures completed [facility] [address], [place], [address], [place] [facility] 02/03/2014 16:44:27 Imaging Results None recorded. Procedure Notes None recorded. Medical Equipment None Reported. Vitals Date Recorded Body height Body weight Provider Name and Address Organization Details Last Updated DateTime 09/30/2019 167.64 cm 942062.71 g huong ramin [facility] 09/30/2019 15:46:28 Date Recorded Body height Provider Name an d Address Organization Details Last Updated DateTime 10/19/2019 167.64 cm Drew Martinez, market basket maker [address], [place], [address], [facility] 10/20/2019 08:45:03 Date Recorded Body height Body weight Provider Name and Address Organization Details Last Updated DateTime 10/22/2019 167.64 cm 993105.71 g Drew Martinez, market basket maker [address], [place], [address], [facility] 10/22/2019 16:57:07 Social History None recorded. Functional Status None recorded. Mental Status None recorded. Family History Nothing Reported. Medical History No medical history recorded. Gynecological HistoryNo gynecological history recorded. Obstetrics History GPAL:G 0 P 0 0 0 0 Past Encounters Encounter ID Performer Location Encounter Start Date Encounter Closed Date Diagnosis/Indication Diagnosis SNOMED-CT Code Diagnosis ICD10 Code Diagnosis Note [id number] Wendie Davis [facility] [address] [place] [address] 02/02/2014 15:01:58 02/04/2014 14:21:43 Dislocation of patellofemoral joint 004942673 [id number] Brigitte Moe [facility] [address] [place] [address] 10/05/2015 16:25:13 10/06/2015 12:31:18 Dislocation of patellofemoral joint 531556002 S83.015D [id number] Elizabeth [facility] [address] [place] [address] 11/27/2015 15:16:22 11/28/2015 11:10:40 Patellar instability 697182372 M25.362 [id number] Carolina Tellez [facility] [address] [place] [address] 03/04/2017 14:41:46 03/05/2017 20:33:51 Chronic instability of knee 437251790 M23.52 [id number] Huong Anneamina, [facility] [address] [place] [address] 09/30/2019 15:27:03 10/01/2019 12:12:23 [id number] CFo SRAVANTHI Morin [address] [facility] [address] 10/19/2019 12:26:31 10/21/2019 09:28:34 Patellar instability 445831906 M25.369 [id number] CFo SRAVANTHI Morin [address] [place] [address] 10/22/2019 16:10:33 10/25/2019 08:09:16 Patellar instability 467818425 M25.361 M25.362 Health Concerns Section Related Observation LastModified by Organization Detai ls LastModified Time None Recorded Concern Status LastModified by Organization Details LastModified Time None Recorded Advance Directives Directive None Recorded Payers Encounter Date Sequence Insurance Name Policy Number Policy Johnson Covered Member ID Johnson Member ID Guarantor Name 11/27/2015 1 [place] Genna R Salatino [id number] Genna R Salatino 03/04/2017 1 [place] Genna R Salatino [id number] Genna R Salatino 09/30/2019 1 [place] Genna R Salatino [id number] Genna R Salatino 09/30/2019 1 [place] [id number] Genna R Salatino [id number] Genna R Salatino 10/19/2019 1 [place] Genna R Salatino [id number] Genna R Salatino 10/22/2019 1 [place] Genna R Salatino [id number] Genna R Salatino Notes Date Note Type Note Provider Name and Address Organization Details Recorded Time 11/27/2015 text/html Patient Accompan ied ByReported bypatient.patient accompaniedby motherOTS Generic HPIReported bypatient.Notes:She had her 2nd left patellar dislocation in August 2015. She has also had 2 dislocations and corrective surgery on her right knee. She has been wearing a rnid-i-bupcjnz and they wanted to put her in something a little smaller. Elizabeth Vivar, [place] [address], [place], [address], [facility] 11/27/2015 16:57:29 09/30/2019 text/html Patient Accompan ied ByReported bypatient.Patient Accompaniedby mother Genna came into the [address] [place] [address] to be fit with bi-lateral genutrain knee braces. MORGAN GARCIA, [facility] [address], [place], [address], [facility] 09/30/2019 16:24:05 10/19/2019 text/html Patient Accompan ied ByReported bypatient.Patient Accompaniedby Munir Generic HPIReported bypatient.Previous surgeriesdate of surgery (08/23/2019) Genna has had multiple knee surgeries and has had several different KOs. Most recent sx August 22 to stabilize Lt patellar by Dr. Isabelle Carrizales, [facility] [address], [place], [address], [facility] 10/20/2019 09:36:38 10/22/2019 text/html Patient Accompan ied ByReported bypatient.Patient Accompaniedby Munir Generic HPIReported bypatient.Previous surgeriesdate of surgery (08/23/2019) Genna has had multiple knee surgeries and has had several different KOs. Most recent sx August 22 to stabilize Lt patellar by Dr. Isabelle Vivar, [place] [address], [place], [address], [facility] 10/22/2019 17:23:36 OBGyn Episode No OBEpisode recorded.
--- OUTSIDE RECORDS SUMMARY | 2024-07-22 10:09 | XMS_ITS | Clinical Summary ---
Author Organization [facility] it Address [address] [place] [address] Care Team Providers Care Print Binding And Finishing Worker Name Role Phone Unavailable Primary Care Provider [...]
[2024-07-22 10:56] LABS: Basophils Percent Auto 0.5 % (0-2); Eosinophils Absolute Auto 0.1 X10*3/uL (0.0-0.4); Eosinophils Percent Auto 1.3 % (0-4); Hematocrit 39.1 % (37.0-47.0); Hemoglobin 13.4 g/dl (12.0-16.0); Imm Gran Abs Auto 0.01 X10*3/uL (0.00-0.03); Imm Gran Pct Auto 0.2 % (0.0-0.4); Lymphocytes Absolute Auto 1.9 X10*3/uL (1.2-4.9); Lymphocytes Percent Auto 35.2 % (20-40); Mean Corpuscular HGB Conc 34.3 g/dl (31.0-35.0); Mean Corpuscular Hemoglobin 31.4 pg (27.0-33.0); Mean Corpuscular Volume 91.6 fL (80.0-98.0); Mean Platelet Volume 11.3 fL (9.4-12.3); Monocytes Absolute Auto 0.4 X10*3/uL (0.1-1.2); Monocytes Percent Auto 6.8 % (2-11); Neutrophils Absolute Auto 3.1 x10*3/uL (2.0-8.3); Platelet Count 256 X10*3/uL (160-400); Red Blood Count 4.27 X10*6/uL (4.20-5.50); Red Cell Distribution Width 12.7 % (11.0-16.0); White Blood Count 5.5 X10*3/uL (4.8-10.8)
[2024-07-22 11:01] LABS: Estimated Average Glucose 97 mg/dL; Hemoglobin A1C 110.8583 umol/L; Total Hemoglobin (HGBA1C) 3567.4038 umol/L
[2024-07-22 11:26] LABS: Alanine Aminotransferase 14 U/L (0-31); Albumin Level 4.1 g/dL (3.5-5.0); Alkaline Phosphatase 57 U/L (39-117); Anion Gap 10 (12-20); Aspartate Amino Transferase 20 U/L (5-31); Bilirubin Total 0.5 mg/dL (0.0-1.0); Blood Urea Nitrogen 16 mg/dL (9-16); C Reactive Protein 0.25 mg/dL (< or = 0.50); Calcium 9.5 mg/dL (8.4-10.2); Carbon Dioxide 29 mmol/L (22-29); Chloride 105 mmol/L (96-108); Cholesterol 199 mg/dL (<200); Estimated Glomerular Filt Rate > 60; Glucose Random 83 mg/dL (60-115); HDL Cholesterol 30 mg/dL (>40); Iron 146 mcg/dL (30-160); LDL Cholesterol Calculated 159 mg/dL (<100); Percent Iron Saturation 63 % (15-50); Sodium 140 mmol/L (135-145); Total Iron Binding Capacity 232 mcg/dL (228-428); Total Protein 6.9 g/dL (6.5-8.0); Triglycerides 53 mg/dL (<150); Unsaturated Iron Binding 86 ug/dL
[2024-07-22 11:55] LABS: Ferritin 262 ng/mL (10-122); TSH reflex Free T4 1.23 uIU/mL (0.32-4.0); Vitamin D 25-OH Total 41.2 ng/mL (>30)
[2024-07-22 11:58] LABS: Insulin 7 uU/mL (2-29)
[2024-07-22 12:04] LABS: Folate 5.4 ng/mL (> or = 4.0); Vitamin B12 442 pg/mL (200-900)
[2024-07-26 13:03] LABS: Zinc 59 mcg/dL (60-130)
[2024-07-26 21:49] LABS: Vitamin A 46 mcg/dL (38-98)
[2024-07-29 06:28] LABS: Vitamin B1 6 nmol/L (8-30)
== END 2024-07-22 09:27 | disposition home or self-care (01) ==
LOC: HO.LAB 09:26
PROVIDERS: PCP Physician Assistant; Visit Provider Physician Assistant Surgical
DX: E03.9 Hypothyroidism, unspecified (principal); E51.9 Thiamine deficiency, unspecified; E50.9 Vitamin A deficiency, unspecified; E55.9 Vitamin D deficiency, unspecified; F41.9 Anxiety disorder, unspecified; Z98.84 Bariatric surgery status
CPT/HCPCS: 36415; 80053; 80061; 82306; 82607; 82728; 82746; 83036; 83525; 83540; 84425; 84443; 84590; 84630; 85025; 86140

== ENCOUNTER 2024-08-26 14:04 | Outpatient (AMB) | payer MEDICAID, SELFPAY ==
--- NOTE | 2024-08-26 14:06 | A.OFFVIS_ITS ---
VS Expanded 08/26/24 14:15 BP 129/67 Blood Pressure Location Rt brachial Blood Pressure Position Sitting Pulse 61 Pulse Source Pulse Oximeter Temp 96.6 F L Temperature Source Temporal Artery Scan Pulse Oximetry 98 Oxygen Delivery Method Room Air Height 5 ft 6 in Weight 201 lb 6.4 oz BMI 32.5 Body Fat % 34.7 Body Fat Mass 69.38 Fat Free Mass 131.4 Visceral Fat Rating 5.0 Body Water % 47.0 Body Water Mass 94.6 Muscle Mass/Score 124.8 Basal Metabolic Rate/Score 1,839 Intake Visit Reasons: (OV) PO LSG 02/05/24 Water Pollution Control Inspector Required: No Allergies adhesive tape Allergy (Mild, Verified 08/26/24 14:10) Rash lactose Adverse Reaction (Intermediate, Verified 08/26/24 14:10) Gastrointestinal Upset Medication List - Last Reconciled 08/26/24 by MEGAN Reyes levothyroxine 25 mcg PO DAILY 90 days lisdexamfetamine (Vyvanse) 40 mg PO QAM lorazepam 0.5 mg PO DAILY PRN thiamine HCl (vitamin B1) 100 mg PO DAILY 90 days HPI Comments Details: This?a?24?yo female who is s/p LSG without hiatal hernia repair on?02/05/2024. Presents for 7 month post op visit. Weight today is 201.4 pounds, with a BMI of 32.5. There has been a 128.6 pound weight loss,(initial weight 330 pounds) since starting the program on 09/26/2023 reflecting a 38.9 % total body weight loss and a weight loss of 80.8 pounds since surgery (operative weight 282.2 pounds) reflecting a 28.6 % TBWL since surgery. No complaints of nausea, emesis, abdominal pain or reflux. Reports infrequent but normal bowel movements every 2-3 days and uses stool softeners regularly. Taking celebrate mvi. Overall very happy with her current progress and with her meal plan. Present meal plan includes: clean simple eats powder 20 gm/scoop 3 shakes 1/2 scoop mixed in almond milk 8-10 another shake, 11-1 fit crunch bar, 2-4 4 forks protein and 4 forks cooked veg 1 scoop 7-9 60 oz water ? Exercise routine includes: 45 min BAR 4 days per week 4-5 mi walking outside or treadmill at gym 400 calories 6 days per week [facility] Medical History GERD (gastroesophageal reflux disease) Joint pain Back pain Thyroid disease Depression Steatosis, liver Insomnia PCOS (polycystic ovarian syndrome) Anxiety ADHD Morbid obesity Surgical History S/P laparoscopic sleeve gastrectomy H/O wisdom tooth extraction History of esophagogastroduodenoscopy (EGD) History of ankle surgery Hx of knee surgery Family History Mother Mental health disorder Addiction Father Mental health disorder Addiction Sister Obesity Mental health disorder Sister No problems noted. Social History Household Members: Significant Other Housing: Apartment Are you a primary career center director to a significant other at home: No Do you presently have visiting nurse or other home services: No Alcohol intake: former Patient Tobacco Use Status: Former Tobacco user Years Smoked: 4 service: No Physical Exam Const General: healthy appearing and no acute distress Resp Effort & Inspection: normal respiratory effort Auscultation: clear to auscultation bilaterally Cardio Rate: regular rate Rhythm: regular rhythm GI Auscultation: normal bowel sounds Extrem General: Yes normal to inspection Assessment & Plan Assessment & Plan (1) S/P laparoscopic sleeve gastrectomy: Code(s): Z98.84 - Bariatric surgery status Category: Surgical Plan: Patient is doing very well. She has lost over 125 lb. She was able to identify her decreased exercise routine and how that directly impacted her weight loss. Now that school is over, she is now exercising more regularly and consistently. She has refocus her exercise program utilizing less weight training and increasi ng cardio. She is very satisfied with how things are going now and was encouraged to continue. We will have her return to the office in approximately 6 weeks. Continue to communicate weekly by text with her weights and text with any questions or concerns
[2024-08-26 14:15] VITALS: BP 129/67; PULSE 61; TEMP 35.9; O2SAT 98; BMI 32.5
== END 2024-08-26 14:35 | disposition home or self-care (01) ==
LOC: HO.HBS 14:04
PROVIDERS: Visit Provider Physician Assistant Surgical
DX: E66.9 Obesity, unspecified (principal); Z68.32 Body mass index [BMI] 32.0-32.9, adult; Z90.3 Acquired absence of stomach [part of]; Z98.84 Bariatric surgery status
CPT/HCPCS: 99213

== ENCOUNTER → 2024-08-26 14:04 | Outpatient (BNVA) | payer MEDICAID, SELFPAY | PROVIDERS: Visit Provider Physician Assistant Surgical | DX: Z98.84 Bariatric surgery status (principal) | CPT/HCPCS: 99212 ==

== ENCOUNTER 2024-10-06 10:00 | Outpatient (AMB) | payer MEDICAID, SELFPAY ==
--- NOTE | 2024-10-06 10:03 | A.OFFVIS_ITS ---
VS Expanded 10/06/24 10:13 BP 119/73 Blood Pressure Location Rt brachial Blood Pressure Position Sitting Pulse 72 Pulse Source Pulse Oximeter Temp 97.8 F Temperature Source Temporal Artery Scan Pulse Oximetry 99 Oxygen Delivery Method Room Air Height 5 ft 6 in Weight 198 lb 12.8 oz BMI 32.1 Body Fat % 33.4 Body Fat Mass 66.4 Fat Free Mass 132.2 Visceral Fat Rating 5.0 Body Water % 47.9 Body Water Mass 5.2 Muscle Mass/Score 125.6 Basal Metabolic Rate/Score 1,844 Intake Visit Reasons: (OV) PO LSG 02/05/24 Box Nailer Required: No Allergies adhesive tape Allergy (Mild, Verified 10/06/24 10:10) Rash lactose Adverse Reaction (Intermediate, Verified 10/06/24 10:10) Gastrointestinal Upset Medication List - Last Reconciled 10/06/24 by MEGAN Reeys levothyroxine 25 mcg PO DAILY 90 days lisdexamfetamine (Vyvanse) 40 mg PO QAM lorazepam 0.5 mg PO DAILY PRN thiamine HCl (vitamin B1) 100 mg PO DAILY 90 days HPI Comments Details: This?a?24?yo female who is s/p LSG without hiatal hernia repair on?02/05/2024. Presents for 8 month post op visit. Weight today is 198.8 pounds, with a BMI of 32.1. There has been a 131.2 pound weight loss,(initial weight 330 pounds) since starting the program on 09/26/2023 reflecting a 39.7 % total body weight loss and a weight loss of 83.4 pounds since surgery (operative weight 282.2 pounds) reflecting a 29.5 % TBWL since surgery. No complaints of nausea, emesis, abdominal pain or reflux. Reports infrequent but normal bowel movements every 2-3 days and uses stool softeners regularly. Taking celebrate mvi. Overall very happy with her current progress and with her meal plan. She states that she is moving to [place] to pursue professional advancement at the end of October. She was on vacation and had family events and as a result she was not exercising as much. Present meal plan includes: clean simple eats powder 20 gm/scoop 3 shakes 1/2 scoop mixed in almond milk 8-10 another shake, 11-1 fit crunch bar, 2-4 4 forks protein and 4 forks cooked veg 1 scoop 7-9 60 oz water ? Exercise routine includes: 45 min BAR 4 days per week 2 mi walking outside or treadmill at gym 400 calories 6 days per week PFSH Medical History GERD (gastroesophageal reflux disease) Joint pain Back pain Thyroid disease Depression Steatosis, liver Insomnia PCOS (polycystic ovarian syndrome) Anxiety ADHD Morbid obesity Surgical History S/P laparoscopic sleeve gastrectomy H/O wisdom tooth extraction History of esophagogastroduodenoscopy (EGD) History of ankle surgery Hx of knee surgery Family History Mother Mental health disorder Addiction Father Mental health disorder Addiction Sister Obesity Mental health disorder Sister No problems noted. Social History Household Members: Significant Other Housing: Apartment Are you a primary healthcare risk control consultant to a significant other at home: No Do you presently have visiting nurse or other home services: No Alcohol intake: former Patient Tobacco Use Status: Former Tobacco user Years Smoked: 4 service: No Physical Exam Const General: healthy appearing and no acute distress Resp Effort & Inspection: normal respiratory effort Auscultation: clear to auscultation bilaterally Cardio Rate: regular rate Rhythm: regular rhythm GI Auscultation: normal bowel sounds Extrem General: Yes normal to inspection Assessment & Plan Assessment & Plan (1) S/P laparoscopic sleeve gastrectomy: Code(s): Z98.84 - Bariatric surgery status Category: Surgical Plan: Change meal plans slightly: clean simple eats powder 20 gm/scoop 2 shakes 1/2 scoop mixed in almond milk 8-10 Fit crunch bar at 12-2 6 forks protein and 6 forks cooked veg 1 scoop 7-9 Patient encouraged to return to her previous exercise regimen that she had been doing very successfully. She will continue to text with any questions or concerns. She is moving to [place] and will establish care with a bariatric surgeon there. She will be returning to the area in January and as it will take time to establish care, we will set her up for her yearly follow-up here at the office in November
[2024-10-06 10:13] VITALS: BP 119/73; PULSE 72; TEMP 36.6; O2SAT 99; BMI 32.1
--- OUTSIDE RECORDS SUMMARY | 2024-10-06 10:53 | XMS_ITS | Data Portability ---
Author Organization [facility] Breanna PHILLIPS'S Address [address] [place] [address] Care Team Providers Care Real Estate Management Specialist Name Role Phone ASHLEY MONTIEL Referring Provider [phone] Assessment Encounter Date Assessment Date Assessment LastModified by Organization Details LastModified Time 11/27/2015 11/27/2015 Orthotic Goals: Choose all that apply Yes Provide Support Yes Reduce Pain Yes Limit Motion Yes Promote Healing Yes Improve Stability Orthosis: is in stock & delivered today. She tried the classic Melendez w/hinges and the Melendez II hinged and preferred the Melendez II hinged, but with the thicker classic Melendez gel buttress. [email or web address] Not available 11/27/2015 16:57:19 09/30/2019 09/30/2019 Genna came into the [address] [place] [address] to be fit with bi-lateral genutrain knee [...] It will be ordered and fit at [email or web address]. The patient was seen today after being [...] By Organization Details Last Modified Time 11/27/2015 [id number] Patient & caregiver were provided with oral & written instructions regarding proper donning, doffing, wear, care and maintenance. Patient did demonstrate that they were able to properly don and doff the orthosis. Caregiver was instructed to call if any questions or problems arise. [email or web address] Not available 11/27/2015 16:57:19 10/19/2019 [id number] Patient was provided with my card and instructed to call if any questions or problems arise. Not available 10/20/2019 09:36:30 10/22/2019 [id number] Patient was provided with oral instructions regarding proper donning, doffing, wear, care and maintenance. Patient did demonstrate that they were able to properly don and doff the orthosis. Patient was provided with my card and instructed to call if any questions or problems arise. peter Not available 10/22/2019 17:08:30 Reason for Referral None Reported. Problems Name Problem SNOMED Code Status Onset Date Resolution Date Notes Provider Name and Address Organization Details Recorded Time Dislocation of patellofemoral joint 171701564 Active CPO [address]manuel [address], [place], [phone], [facility] 6 16:45:58 Patellar instability [id number] Active Elizabeth Vivar [place] [address], [place], [address], [facility] 6 16:57:19 Problem Notes None recorded. Procedures Surgical History Date Name Laterality Status Provider Name and Address Organization Details Recorded Time 0 OTS Procedures completed CFo Enmanuel [address], [place], [address], [facility] 10/22/2019 16:58:50 6 OTS Knee Procedures completed Elizabeth Vivar [place] [address], [place], [address], [facility] 11/27/2015 16:57:19 6 OTS Procedures completed CPO Enmanuel Yeung [address], [place], [phone], [facility] 10/05/2015 16:45:58 4 OTS Knee Procedures completed CPO Enmanuel Borreg[address] Dr, [place], [address], [facility] 02/03/2014 16:44:27 Imaging Results None recorded. Procedure Notes None recorded. Medical Equipment None Reported. Vitals Date Recorded Body height Body weight Provider Name and Address Organization Details Last Updated DateTime 09/30/2019 167.64 cm 004230.71 g huong valero [place] [facility] 09/30/2019 15:46:28 Date Recorded Body height Provider Name an d Address Organization Details Last Updated DateTime 10/19/2019 167.[address], [place], [address], [facility] 10/20/2019 08:45:03 Date Recorded Body height Body weight Provider Name and Address Organization Details Last Updated DateTime 10/22/2019 167.64 cm 691837.[address], [place], [address], [facility] 10/22/2019 16:57:07 Social History None recorded. Functional Status None recorded. Mental Status None recorded. Family History Nothing Reported. Medical History No medical history recorded. Gynecological HistoryNo gynecological history recorded. Obstetrics History GPAL:G 0 P 0 0 0 0 Past Encounters Encounter ID Performer Location Encounter Start Date Encounter Closed Date Diagnosis/Indication Diagnosis SNOMED-CT Code Diagnosis ICD10 Code Diagnosis Note [id number] Wendie Davis, [facility] [address] [place] [address] 02/02/2014 15:01:58 02/04/2014 14:21:43 Dislocation of patellofemoral joint [id number] Brigitte DiogoThanga, [facility] [address] [place] [address] 10/05/2015 16:25:13 10/06/2015 12:31:18 Dislocation of patellofemoral joint 910841571 S83.015D [id number] [facility] [address] [place] [address] 11/27/2015 15:16:22 11/28/2015 11:10:40 Patellar instability 395042488 M25.362 [id number] [facility] [address] [place] [address] 03/04/2017 14:41:46 03/05/2017 20:33:51 Chronic instability of knee 193708256 M23.52 [id number] Huong Valero, [address] [address] 09/30/2019 15:27:03 10/01/2019 12:12:23 [id number] Drew Martinez [facility] [address] [place] [address] 10/19/2019 12:26:31 10/21/2019 09:28:34 Patellar instability 862845161 M25.369 [id number] Drew Martinez [facility] [address] [place] [address] 10/22/2019 16:10:33 10/25/2019 08:09:16 Patellar instability 180268923 M25.361 M25.362 Health Concerns Section Related Observation LastModified by Organization Detai ls LastModified Time None Recorded Concern Status LastModified by Organization Details LastModified Time None Recorded Advance Directives Directive None Recorded Payers Insurance Date Sequence Insurance Name Policy Number Policy Johnson Covered Member ID Johnson Member ID Guarantor Name 10/23/2019 1 [place] [facility] Genna Martinez [id number] Genna Martinez 10/19/2019 1 [facility] [id number] Genna Martinez [id number] Genna Martinez Notes Date Note Type Note Provider Name and Address Organization Details Recorded Time 6 text/html Patient Accompanied ByReported by PatientAccompanied by:For patient accompanied, patient reportsby mother. OTS Generic HPIReported by PatientSgudelia had her 2nd left patellar dislocation in August 2015. She has also had 2 dislocations and corrective surgery on her right knee. She has been wearing a [id number] and they wanted to put her in something a little smaller. Elizabeth Vivar, [place] [address], [place], [address], [facility] [employer] [facility] 11/27/2015 16:57:29 0 text/html Patient Accompanied ByReported by PatientAccompanied by:For patient accompanied, patient reportsby mother. OTS Generic HPIReported by Patient Genna came into the [address] [place] [address] to be fit with bi-lateral genutrain knee braces. MORGAN GARCIA, [employer] [address], [place], [address], [facility] 09/30/2019 16:24:05 0 text/html Patient Accompanied ByReported by PatientAccompanied by:For patient accompanied, patient reportsby mother. OTS Generic HPIReported by PatientPatient HistoryFor previous surgeries, patient reportsdate of surgery ___ (08/23/2019). eGnna has had multiple knee surgeries and has had several different KOs. Most recent sx August 22 to stabilize Lt patellar by Dr. Isabelle Carrizales, [employer] [address], [place], [address], [facility] 10/20/2019 09:36:38 0 text/html Patient Accompanied ByReported by PatientAccompanied by:For patient accompanied, patient reportsby mother. OTS Generic HPIReported by PatientPatient HistoryFor previous surgeries, patient reportsdate of surgery ___ (08/23/2019). Genna has had multiple knee surgeries and has had several different KOs. Most recent sx August 22 to stabilize Lt patellar by Dr. Isabelle Vivar, [place] [address], [place], [address], [facility] 10/22/2019 17:23:36 OBGyn Episode No OBEpisode recorded.
--- OUTSIDE RECORDS SUMMARY | 2024-10-06 10:53 | XMS_ITS | Clinical Summary ---
Author Organization [facility] Address [address] [address] Phone Care Team Providers Care Job Placement Specialist Name Role Phone Ria Swanson Primary Care Provider Social History Tobacco Use Types Packs/Day Years Used Date Smoking Tobacco: Never Assessed Education Answer Date Recorded Are you interested in more education? Not on dameon e 06/16/2023 Are you concerned about learning? Not on file 06/16/2023 No 06/16/2023 No 06/16/2023 Digital Access Answer Date Recorded No 06/16/2023 No 06/16/2023 Reliable internet access at home? Not on file 06/16/2023 Device with a working camera? Not on file Comments Unknown Sex and Gender Information Value Date Recorded Sex Assigned at Not on file Legal Sex Female 12:36 PM EDT Gender Identity Not on file Sexual Orientation Not on file Plan of Treatment Health Maintenance Due Date Last Done Comments Adult Td,Tdap Booster 2001 DEPRESSION SCREENING 2013 SMOKING Hx and SMOKELESS TOB ACCO SCREENING 2014 HPV VACCINES (1 - 3-dose series) 01/02/2016 CHLAMYDIA SCREENING 2017 MENINGOCOCCAL VACCINES (B) ( 1 of 2 - Standard) 2017 HEPATITIS C SCREENING 2019 HIV ONE-TIME SCREENING (18-6 5 YEARS) 2019 PAP SMEAR 2022 COVID-19 VACCINE (2023-2 5 season) 2023 HEPATITIS A VACCINES Aged Out No long er eligible based on patient's age to complete this topic HIB VACCINES Aged Out No longer eligi ble based on patient's age to complete this topic MENINGOCOCCAL VACCINES (ACWY) Aged Out No longer eligible based on patient's age to complete this topic PNEUMOCOCCAL VACCINES (0-49 years) Aged Out No longer eligible based on patient's age to complete this topic Medical Devices Not on file Insurance ACO ACO ACO Care Teams Job Placement Specialist Relationship Specialty Start Date End Date Ria Swanson PA [address] [place] [address] PCP - General Physician Campus Receptionist 06/16/23 Additional Source Comments The information contained in this document represents components of the legal health record. It is not the complete legal health record.[facility]
--- OUTSIDE RECORDS SUMMARY | 2024-10-06 10:53 | XMS_ITS | Clinical Summary ---
Author Organization [facility] it Address [address] [place] [address] Care Team Providers Care Electronic Prepress System Operator Name Role Phone Unavailable Primary Care Provider [...] Screening: P ap Smear 2022 COVID-19 Vaccine (1 - 2023-2 5 season) 2023 Influenza Vaccine (#1) 2024 HIB Vaccines Aged Out No longer [...] 5 Years) and At-Risk Patients (6 to 49 Years) Aged Out No longer eligible b ased on patient's age to complete this topic RSV Immunization Patients Un geovany 20 months Aged Out No longer eligible b ased on patient's age to complete this topic Varicella Vaccines Aged Out No longer eligible based on patient's age to complete this topic
== END 2024-10-06 10:33 | disposition home or self-care (01) ==
PROVIDERS: Visit Provider Physician Assistant Surgical
DX: E66.9 Obesity, unspecified (principal); Z68.32 Body mass index [BMI] 32.0-32.9, adult; Z90.3 Acquired absence of stomach [part of]; Z98.84 Bariatric surgery status
CPT/HCPCS: 99213

== ENCOUNTER → 2024-10-06 10:00 | Outpatient (BNVA) | payer MEDICAID, SELFPAY | PROVIDERS: Visit Provider Physician Assistant Surgical | DX: E66.01 Morbid (severe) obesity due to excess calories (principal); E28.2 Polycystic ovarian syndrome; Z68.32 Body mass index [BMI] 32.0-32.9, adult; Z90.3 Acquired absence of stomach [part of] | CPT/HCPCS: 99212 ==

== ENCOUNTER 2025-02-09 09:46 | Outpatient (AMB) | payer MEDICAID, SELFPAY ==
--- NOTE | 2025-02-09 10:08 | MHC.OFFVISWM ---
VS Expanded 02/09/25 10:18 BP 130/77 Blood Pressure Location Rt brachial Blood Pressure Position Sitting Pulse 73 Pulse Source Pulse Oximeter Temp 96.2 F L Temperature Source Temporal Artery Scan Pulse Oximetry 100 Oxygen Delivery Method Room Air Height 5 ft 6 in Weight 194 lb 12.8 oz BMI 31.4 Body Fat % 34.3 Body Fat Mass 66.8 Fat Free Mass 127.8 Visceral Fat Rating 5.0 Body Water % 47.2 Body Water Mass 92.0 Muscle Mass/Score 121.4 Basal Metabolic Rate/Score 1,784 Intake Visit Reasons: (OV) PO LSG 02/05/24 Allergies adhesive tape Allergy (Mild, Verified 10/06/24 10:10) Rash lactose Adverse Reaction (Intermediate, Verified 10/06/24 10:10) Gastrointestinal Upset Medication List - Last Reconciled 02/09/25 by MEGAN Caba levothyroxine 25 mcg PO DAILY 90 days lisdexamfetamine (Vyvanse) 40 mg PO QAM lorazepam 0.5 mg PO DAILY PRN thiamine HCl (vitamin B1) 100 mg PO DAILY 90 days HPI Comments Details: This a 24 yo female who is s/p LSG without hiatal hernia repair on 02/05/2024. Presents for 1 year post op visit. Weight loss of 4lb since last OV in October. Initial weight 330 pounds starting the program on 09/26/2023 and operative weight 282.2 pounds. No complaints of nausea, emesis, abdominal pain or reflux. Reports infrequent but normal bowel movements every 2-3 days and uses stool softeners regularly. Taking celebrate mvi. Overall very happy with her current progress and with her meal plan. She moved to [place] to pursue professional advancement at the end of October and is now living there. Her grandmother last month and she was sick, so was unable to exercise as much. She is struggling with food noise more and wanting to snack more. Present meal plan includes: clean simple eats powder 20 gm/scoop 3 shakes 1/2 scoop mixed in almond milk 8-10 another shake, 11-1 fit crunch bar, 2-4 6 forks protein and 6 forks cooked veg 1 scoop 7-9 60 oz water Exercise routine includes: 3 days a week due to work schedule- 400 calories got a membership for [id number] [facility] Medical History GERD (gastroesophageal reflux disease) Joint pain Back pain Thyroid disease Depression Steatosis, liver Insomnia PCOS (polycystic ovarian syndrome) Anxiety ADHD Morbid obesity Surgical History S/P laparoscopic sleeve gastrectomy H/O wisdom tooth extraction History of esophagogastroduodenoscopy (EGD) History of ankle surgery Hx of knee surgery Family History Mother Mental health disorder Addiction Father Mental health disorder Addiction Sister Obesity Mental health disorder Sister No problems noted. Social History Household Members: Significant Other Housing: Apartment Are you a primary childcare aide to a significant other at home: No Do you presently have visiting nurse or other home services: No Alcohol intake: former Patient Tobacco Use Status: Former Tobacco user Years Smoked: 4 service: No Physical Exam Vital Signs: Last Vital Signs Temp 96.2 F L 02/09/25 10:18 Pulse 73 02/09/25 10:18 BP 130/77 02/09/25 10:18 Pulse Ox 100 02/09/25 10:18 Oxygen Delivery Method Room Air 02/09/25 10:18 BMI result Body Mass Index 31.4 Assessment & Plan Assessment & Plan (1) S/P laparoscopic sleeve gastrectomy: Code(s): Z98.84 - Bariatric surgery status Category: Surgical (2) Obesity: Code(s): E66.9 - Obesity, unspecified Category: Medical Plan Pt is interested in GLP1s to help with food noise. She will try to establish with a PCP in [place]. If she has difficulty I told her she could contact me via text. She is interested in skin removal surgery as well and will discuss with a provider in [place]. 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 She continues to communicate with Dr Nba Saunders for labs. RTC in June when she is home again. Orders: Orders Insulin Today E66.9 - Obesity, unspecified, Z98.84 - Bariatric surgery status Complete Blood Count Auto Diff Today E66.9 - Obesity, unspecified, Z98.84 - Bariatric surgery status Hemoglobin A1c Today E66.9 - Obesity, unspecified, Z98.84 - Bariatric surgery status Zinc Today E66.9 - Obesity, unspecified, Z98.84 - Bariatric surgery status Comprehensive Met. Panel Today E66.9 - Obesity, unspecified, Z98.84 - Bariatric surgery status Vitamin B1 Today E66.9 - Obesity, unspecified, Z98.84 - Bariatric surgery status TSH reflex Free T4 Today E66.9 - Obesity, unspecified, Z98.84 - Bariatric surgery status Ferritin Today E66.9 - Obesity, unspecified, Z98.84 - Bariatric surgery status Vitamin D 25-OH Total Today E66.9 - Obesity, unspecified, Z98.84 - Bariatric surgery status Lipid Panel Today E66.9 - Obesity, unspecified, Z98.84 - Bariatric surgery status IRON PROFILE Today E66.9 - Obesity, unspecified, Z98.84 - Bariatric surgery status Vitamin B12 and Folate Today E66.9 - Obesity, unspecified, Z98.84 - Bariatric surgery status Vitamin A Today E66.9 - Obesity, unspecified, Z98.84 - Bariatric surgery status C Reactive Protein Today E66.9 - Obesity, unspecified, Z98.84 - Bariatric surgery status
[2025-02-09 10:18] VITALS: BP 130/77; PULSE 73; TEMP 35.7; O2SAT 100; BMI 31.4
--- OUTSIDE RECORDS SUMMARY | 2025-02-09 11:10 | XMS_ITS | Clinical Summary ---
Author Organization [facility] Address [address] [place] [address] Care Team Providers Care Pharmacist Per Diem Name Role Phone Unavailable Primary Care Provider [...] Cervical Cancer Screening: P ap Smear 2022 Depression Screening 03/17/2024 COVID-19 Vaccine (1 - 2024-2 6 season) 2024 Influenza Vaccine (#1) 2024 RSV Immunization Adult Patie nts (1 - 1-dose 75+ series) 01/02/2076 HIB Vaccines Aged Out No longer eligi [...] patient's age to complete this topic Meningococcal B Vaccine Aged Out No l onger eligible based on patient's age to complete [...]
--- OUTSIDE RECORDS SUMMARY | 2025-02-09 11:10 | XMS_ITS | Clinical Summary ---
Author Organization [facility] Address [address] [address] Phone Care Team Providers Care Sport Shoe Spike Assembler Name Role Phone Ria Swanson Primary Care [...] - 3-dose series) 01/02/2016 CHLAMYDIA SCREENING 2017 HEPATITIS C SCREENING 2019 HIV ONE-TIME SCREENING (18-6 5 YEARS) 2019 PAP SMEAR 2022 INFLUENZA VACCINE (#1) 2024 COVID-19 VACCINE ( - 2024-2 6 season) 2024 HEPATITIS A VACCINES Aged Out No long er eligible based on patient's age to complete this topic HIB VACCINES Aged Out No longer eligi ble based on patient's age to complete this topic MENINGOCOCCAL VACCINES (ACWY) Aged Out No longer eligible based on patient's age to complete this topic MENINGOCOCCAL VACCINES (B) Aged Out N o longer eligible based on patient's age to complete this topic PNEUMOCOCCAL VACCINES (0-49 years) Aged Out No longer eligible based on patient's age to complete this topic Medical Devices Not on file Insurance ACO ACO ACO Care Teams Sport Shoe Spike Assembler Relationship Specialty Start Date End Date Ria Swanson PA [address] [place] [phone] PCP - General Physician Physician Anesthesiologist 06/16/23 Additional Source Comments The information contained in this document represents components of the legal health record. It is not the complete legal health record.[facility]
== END 2025-02-09 11:18 | disposition home or self-care (01) ==
LOC: HO.HBS 09:47
PROVIDERS: Visit Provider Physician Assistant Surgical
DX: E66.9 Obesity, unspecified (principal); Z68.31 Body mass index [BMI] 31.0-31.9, adult; Z90.3 Acquired absence of stomach [part of]; Z98.84 Bariatric surgery status
CPT/HCPCS: 99214; G2211

== ENCOUNTER 2025-02-09 09:46 | Outpatient (REF) | payer MEDICAID, SELFPAY ==
[2025-02-09 11:50] LABS: MANUAL DIFF FLAG NO
[2025-02-09 12:34] LABS: Hematocrit 41.9 % (37.0-47.0); Hemoglobin 14.1 g/dl (12.0-16.0); Imm Gran Abs Auto 0.02 X10*3/uL (0.00-0.03); Imm Gran Pct Auto 0.3 % (0.0-0.4); Lymphocytes Absolute Auto 2.4 X10*3/uL (1.2-4.9); Mean Corpuscular HGB Conc 33.7 g/dl (31.0-35.0); Mean Corpuscular Hemoglobin 31.1 pg (27.0-33.0); Mean Corpuscular Volume 92.3 fL (80.0-98.0); NRBC Abs Auto 0.000 X10*3/uL (0.0-0.012); NRBC Pct Auto 0.0 /100WBC (0.0-0.2); Platelet Count 269 X10*3/uL (160-400); Red Blood Count 4.54 X10*6/uL (4.20-5.50); White Blood Count 6.2 X10*3/uL (4.8-10.8)
[2025-02-09 13:12] LABS: Alanine Aminotransferase 18 U/L (0-31); Albumin Level 4.2 g/dL (3.5-5.0); Alkaline Phosphatase 62 U/L (39-117); Anion Gap 9 (12-20); Aspartate Amino Transferase 18 U/L (5-31); Blood Urea Nitrogen 14 mg/dL (9-16); Calcium 9.1 mg/dL (8.4-10.2); Carbon Dioxide 29 mmol/L (22-29); Chloride 105 mmol/L (96-108); Cholesterol 157 mg/dL (<200); Estimated Glomerular Filt Rate > 60; HDL Cholesterol 35 mg/dL (>40); Iron 117 mcg/dL (30-160); Percent Iron Saturation 50 % (15-50); Potassium 4.1 mmol/L (3.3-5.1); Sodium 139 mmol/L (135-145); Total Iron Binding Capacity 235 mcg/dL (228-428); Total Protein 6.8 g/dL (6.5-8.0); Triglycerides 35 mg/dL (<150); Unsaturated Iron Binding 118 ug/dL
[2025-02-09 13:36] LABS: Folate 3.7 ng/mL (> or = 4.0); Vitamin B12 403 pg/mL (200-900)
[2025-02-09 13:39] LABS: Ferritin 174 ng/mL (10-122)
--- OUTSIDE RECORDS SUMMARY | 2025-02-09 14:29 | XMS_ITS | Data Portability ---
Author Organization [facility] Address [address] [place] [address] Care Team Providers Care Superintendent Laundry Name Role Phone ASHLEY MONTIEL Referring Provider [...] 16:57:19 09/30/2019 09/30/2019 Genna came into the [address] [place] [address] to be fit with bi-lateral genutrain knee [...] It will be ordered and fit at [email or web address]. The patient was seen today after being [...] By Organization Details Last Modified Time 11/27/2015 [id number] Patient & caregiver were provided with oral & written instructions regarding proper donning, doffing, wear, care and maintenance. Patient did demonstrate that they were able to properly don and doff the orthosis. Caregiver was instructed to call if any questions or problems arise. [email or web address] Not available 11/27/2015 16:57:19 10/19/2019 [id number] Patient was provided with my card and instructed to call if any questions or problems arise. Not available 10/20/2019 09:36:30 10/22/2019 [id number] Patient was provided with oral instructions regarding [...] Details Recorded Time Dislocation of patellofemoral joint 767263343 Active CPO [address], [place], [address], [facility] 6 16:45:58 Patellar instability 239908021 Active Elizabeth Vivar [place] [address], [place], [address], [facility] 6 16:57:19 Problem Notes None recorded. Procedures Surgical History Date Name Laterality Status Provider Name and Address Organization Details Recorded Time 0 OTS Procedures completed CFo [address], [place], [address], [facility] 10/22/2019 16:58:50 6 OTS Knee Procedures completed Elizabeth Vivar [place] [address], [place], [address], [facility] 11/27/2015 16:57:19 6 OTS Procedures completed CPO Enmanuel [address], [place], [address], [facility] 10/05/2015 16:45:58 4 OTS Knee Procedures completed CPO Enmanuel [address], [place], [address], [facility] 02/03/2014 16:44:27 Imaging Results None recorded. Procedure Notes None recorded. Medical Equipment None Reported. Vitals Date Recorded Body height Body weight Provider Name and Address Organization Details Last Updated DateTime 09/30/2019 167.64 cm 779650.71 g huong valero [place] [facility] 09/30/2019 15:46:28 Date Recorded Body height Provider Name an d Address Organization Details Last Updated DateTime 10/19/2019 167.[address], [place], [address], [facility] 10/20/2019 08:45:03 Date Recorded Body height Body weight Provider Name and Address Organization Details Last Updated DateTime 10/22/2019 167.64 cm 958431.[address], [place], [address], [facility] 10/22/2019 16:57:07 Social History None recorded. Functional Status None recorded. Mental Status None recorded. Family History Nothing Reported. Medical History No medical history recorded. Gynecological HistoryNo gynecological history recorded. Obstetrics History GPAL:G 0 P 0 0 0 0 Past Encounters Encounter ID Performer Location Encounter Start Date Encounter Closed Date Diagnosis/Indication Diagnosis SNOMED-CT Code Diagnosis ICD10 Code Diagnosis IMO Codes Diagnosis Note [id number] Wendie Davsi, [facility] [address] [place] [address] 02/02/2014 15:01:58 02/04/2014 14:21:43 Dislocation of patellofemoral joint [id number] [id number] Brigitte DiogoThanga, [address] [address] 10/05/2015 16:25:13 10/06/2015 12:31:18 Dislocation of patellofemoral joint 292016011 S83.015D [id number] [facility] [address] [place] [address] 11/27/2015 15:16:22 11/28/2015 11:10:40 Patellar instability 706141535 M25.362 [id number] [facility] [address] [place] [address] 03/04/2017 14:41:46 03/05/2017 20:33:51 Chronic instability of knee 992075941 M23.52 [id number] Huong Valero, [address] [address] 09/30/2019 15:27:03 10/01/2019 12:12:23 [id number] Drew Martinez [facility] [address] [place] [address] 10/19/2019 12:26:31 10/21/2019 09:28:34 Patellar instability 239969842 M25.369 [id number] Drew Martinez [facility] [address] [place] [address] 10/22/2019 16:10:33 10/25/2019 08:09:16 Patellar instability 944450275 M25.361 M25.362 Health Concerns Section Related Observation LastModified by Organization Detai ls LastModified Time None Recorded Concern Status LastModified by Organization Details LastModified Time None Recorded Advance Directives Directive None Recorded Payers Insurance Date Sequence Insurance Name Policy Number Policy Johnson Covered Member ID Johnson Member ID Guarantor Name 10/23/2019 1 [place] [facility] Genna Ramoso [id number] Genna Ramoso 10/19/2019 1 [place] [id number] Genna Ramoso [id number] Genna Ramoso Notes Date Note Type Note Provider Name and Address Organization Details Recorded Time 6 text/html Patient Accompanied ByReported by PatientAccompanied by:For patient accompanied, patient reportsby mother. OTS Generic HPIReported by PatientSgudelia had her 2nd left patellar dislocation in August 2015. She has also had 2 dislocations and corrective surgery on her right knee. She has been wearing a [id number] and they wanted to put her in something a little smaller. Elizabeth Vivar, [place] [address], [place], [address], [facility] 11/27/2015 16:57:29 0 text/html Patient Accompanied ByReported by PatientAccompanied by:For patient accompanied, patient reportsby mother. OTS Generic HPIReported by Patient Genna came into the [address] [place] [address] to be fit with bi-lateral genutrain knee braces. MORGAN GARCIA, CLEAN ROOM TECHNICIAN [address], [place], [address], [facility] 09/30/2019 16:24:05 0 text/html Patient Accompanied ByReported by PatientAccompanied by:For patient accompanied, patient reportsby mother. OTS Generic HPIReported by PatientPatient HistoryFor previous surgeries, patient reportsdate of surgery ___ (08/23/2019). Genna has had multiple knee surgeries and has had several different KOs. Most recent sx August 22 to stabilize Lt patellar by Dr. Isabelle Carrizales, CLEAN ROOM TECHNICIAN [address], [place], [address], [facility] 10/20/2019 09:36:38 0 text/html Patient Accompanied ByReported by PatientAccompanied by:For patient accompanied, patient reportsby mother. OTS Generic HPIReported by PatientPatient HistoryFor previous surgeries, patient reportsdate of surgery ___ (08/23/2019). Genna has had multiple knee surgeries and has had several different KOs. Most recent sx August 22 to stabilize Lt patellar by Dr. Isabelle Johnson [facility], [place] [address], [place], [address], [facility] 10/22/2019 17:23:36 OBGyn Episode No OBEpisode recorded.
== END 2025-02-09 09:47 | disposition home or self-care (01) ==
LOC: HO.LAB 09:46
PROVIDERS: Visit Provider Physician Assistant Surgical
DX: Z98.84 Bariatric surgery status (principal); E66.9 Obesity, unspecified; Z68.31 Body mass index [BMI] 31.0-31.9, adult
CPT/HCPCS: 36415; 80053; 80061; 82306; 82607; 82728; 82746; 83036; 83525; 83540; 84425; 84443; 84590; 84630; 85025; 86140; 99212